=== PATIENT | female | born 1985 | race Caucasian/White ===

== ENCOUNTER 2016-06-14 07:33 | Emergency (ER) | payer BC ==
[~2016-06-14] VITALS: Ht 160 cm; Wt 79.2 kg
[~2016-06-14 07:33] MED LIST: CLON2TAB3 PO; LISD50CA4 PO; LXP/10 PO
[2016-06-14 07:36] VITALS: TEMP 36.5; Ht 160 cm; Wt 79.2 kg
[2016-06-14] MEDS ORDERED: CLON0.2T PO (07:49)
[2016-06-14] MEDS ORDERED: LISD40CA PO (07:49)
[2016-06-14] MEDS ORDERED: ESCI1TAB10 PO (07:49)
[2016-06-14] MEDS ORDERED: SODIUM CHLORIDE 0.9% 1000ML 1,000 ML IV STA (08:02)
[2016-06-14] MEDS ORDERED: LORAZEPAM INJ 0.5 MG in SYRINGE 0.25 ML IV STA (08:02)
[2016-06-14] MEDS ORDERED: LORAZEPAM 0.5 MG TAB SL STA (08:12)
[2016-06-14 08:35] LABS: BASO % 0.2 %; BASO ABS # 0.01 K/uL (0-0.2); COMPLETE YES; HEMATOCRIT 40.8 % (37-47); IG% 0.2 %; LYMPH % 43.5 %; MEAN CELL VOLUME 86.6 fL (80-100); MEAN CORPUSCULAR HEMOGLOBIN 31.2 pg (25-34); MEAN PLATELET VOLUME 10.1 fL (7.4-10.4); MONO % 6.4 %; NEUT % 48.7 %; PLATELET COUNT 243 K/uL (130-400); RED BLOOD COUNT 4.71 M/uL (4.2-5.4); WHITE BLOOD COUNT 5.75 K/uL (4.8-10.8)
[2016-06-14 08:52] LABS: URINE APPEARANCE CLEAR (CLEAR); URINE BILIRUBIN NEG (NEG); URINE COLOR YELLOW; URINE NITRITE NEG (NEG); URINE SPECIFIC GRAVITY 1.023 (1.000-1.030); UROBILINOGEN NEG (NEG); ZZUR CULT IF INDIC CLEAN CATCH NO
[2016-06-14 08:52] LABS: ALT/SGPT 28 U/L (12-78); BLOOD UREA NITROGEN 12 mg/dl (7-18); BUN/CREATININE RATIO 14.1 (10-20); CALCIUM 9.2 mg/dl (8.5-10.1); CARBON DIOXIDE 16 mmol/L (21-32); CHLORIDE 110 mmol/L (98-107); CREATININE 0.82 mg/dl (0.60-1.20); GLUCOSE 89 mg/dl (70-99); MAGNESIUM 1.9 mg/dl (1.8-2.4); POTASSIUM 3.3 mmol/L (3.5-5.1); SODIUM 144 mmol/L (136-145)
[2016-06-14 08:54] LABS: ACETAMINOPHEN < 2 ug/ml (10-30)
[2016-06-14 09:02] LABS: ALB/GLOB RATIO 1.1 (0.9-2); ALKALINE PHOSPHATASE 55 U/L (45-117); AST/SGOT 17 U/L (15-37)
[2016-06-14 09:02] LABS: MANUAL MICROSCOPIC REQUIRED? NO; REVIEW REQ? NO
[2016-06-14 09:28] LABS: BENZODIAZEPINE, URINE POS (NEG); COCAINE,URINE NEG (NEG); PHENCYCLIDINE, URINE NEG (NEG)
[2016-06-14 11:15] VITALS: BP 130/93; PULSE 102; O2SAT 97
--- NOTE | 2016-06-14 11:41 | EMERGENCY ROOM VISIT NOTE ---
History First contact with patient: 07:52 Chief Complaint: ANXIETY Stated Complaint: ANXIETY, CHEST PAIN History of Present Illness The patient is a 30 year old female who presents to the Emergency Department by private vehicle for evaluation of her anxiety. She reports that she hasn't slept in the past 3 days. She is working several jobs and effort to make money as she is currently a doctorate student at [employer]. She had been stressing herself at home as well. She has a known history of anxiety as well as borderline personality disorder. She takes Lexapro daily as well as Klonopin. 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 She was instructed to complete a form by 8 AM today. She was unsuccessful in doing so. She reports that this is worsened her anxiety. She has had anxiety attacks in the past. She reports that this feels very similar. She complains of numbness in the hands and feet as well as shortness of breath and tightness in her chest. The patient rates her current discomfort as a 0/10. She denies any headaches, dizziness, palpitations, nausea , vomiting, or abdominal pain. She reports no history of cardiovascular disease or family history otherwise. Review of Systems A complete 10-point Review of Systems was discussed with the patient, with pertinent positives and negatives listed in the History of Present Illness. All remaining Review of Systems questions can be considered negative unless otherwise specified. Past Medical/Surgical History Medical Problems: (1) Alcohol intoxication (2) Anxiety (3) PTSD (post-traumatic stress disorder) (4) Severe depression Family History Diabetes mellitus Gallbladder disease Heart disease Hypertension Seizures Social History Smoking Status: Never Smoker Smokeless Tobacco Use: No Alcohol Use: occasionally Drug Use: other Marital Status: Housing Status: lives with family Occupation Status: [employer] student Current/Historical Medications Scheduled Clonazepam (Klonopin), 1 MG PO TID Clonidine Hcl (Catapres), 0.2 MG PO HS Escitalopram Oxalate (Lexapro), 20 MG PO DAILY Levonorgestrel (Iud) (Mirena), 20 MCG INT UTER UD Lisdexamfetamine Dimesylate (Vyvanse), 40 MG PO DAILY Allergies Coded Allergies: Latex (Verified Allergy, Intermediate, ERRYTHEMA, 06/14/16) Sulfa Drugs (Verified Allergy, Mild, 06/14/16) Sulfamethoxazole (Verified Allergy, Mild, 06/14/16) Trimethoprim (Verified Allergy, Mild, 06/14/16) Banana (Unverified Allergy, Unknown, unkn, 06/14/16) [place] (Unverified Allergy, Unknown, unknown, 06/14/16) Eggplant (Unverified Allergy, Unknown, hives, 06/14/16) Kiwi (Unverified Allergy, Unknown, hives, 06/14/16) Lentils (Verified Allergy, Unknown, UNKNOWN, 06/14/16) Tuna (Verified Allergy, Unknown, UNKNOWN, 06/14/16) Uncoded Allergies: MELONS (Allergy, Unknown, UNKNOWN, 10/11/13) PEAS (Allergy, Unknown, UNKNOWN, 10/11/13) Physical Exam Vital Signs Date Time Temp Pulse Resp B/P Pulse Ox O2 Delivery O2 Flow Rate FiO2 06/14/16 11:15 102 17 130/93 97 Room Air 06/14/16 08:34 117 06/14/16 07:36 36.5 100 18 139/93 100 Room Air Pain Rating (0-10): 0 Physical Exam VITAL SIGNS - Vital signs and nursing notes were reviewed. GENERAL - 30-year-old female appearing her stated age who is in mild distress and hyperventilating. HEAD - NC/AT. EYES - PERRL with EOMI bilaterally. Sclera anicteric. Palpebral conjunctiva pink and moist with no injection. EARS - No deformities of external structures noted on gross examination bilaterally. No pain elicited with palpation of the tragus bilaterally. External auditory canals without discharge or otorrhea. Tympanic membranes pearly borrego without retraction or bulging. NOSE - Midline and without cyanosis. No epistaxis or purulent drainage noted. Septum midline without deviation or septal hematoma noted. MOUTH/OROPHARYNX - Without perioral cyanosis. Buccal mucosa pink and moist and without leukoplakia. Tongue midline with equal elevation of palate bilaterally. NECK - Neck with FROM. Supple to palpation. No lymphadenopathy noted. LUNGS - Chest wall symmetric without accessory muscle use, intercostals retractions, or central cyanosis. Normal vesicular breath sounds CTA B/L. No wheezes, rales, or rhonchi appreciated. CARDIAC - RRR with S1/S2. No murmur, rubs, or gallops appreciated. ABDOMEN - Abdominal contour obese and without pulsations or visible masses. BS normoactive all four quadrants. No tenderness, palpable masses, hepatosplenomegaly, or ascites noted. EXTREMITIES - +5/5 strength noted in UE/LE bilaterally. PSYCHIATRIC - SPEECH - Rate and volume of speech appropriate. PSYCHOMOTOR - No noticeable psychomotor retardation or agitation. MOOD - Labile. AFFECT -flattened affect. THOUGHT CONTENT - no active or passive suicidal ideation. No thoughts of homicidal ideation. No auditory/visual hallucinations, paranoia, delusions, or obsessions noted. THOUGHT PROCESS - Thought process is relatively linear given the pt's recent emotional hardships. INSIGHT - Fair. JUDGEMENT - Fair. IMPULSE CONTROL - Fair. Medical Decision & Procedures Laboratory Results 06/14/16 08:20 Red Blood Count 4.71, Mean Corpuscular Volume 86.6, Mean Corpuscular Hemoglobin 31.2, Mean Corpuscular Hemoglobin Concent 36.0, Mean Platelet Volume 10.1, Neutrophils (%) (Auto) 48.7, Lymphocytes (%) (Auto) 43.5, Monocytes (%) (Auto) 6.4, Eosinophils (%) (Auto) 1.0, Basophils (%) (Auto) 0.2, Neutrophils # (Auto) 2.80, Lymphocytes # (Auto) 2.50, Monocytes # (Auto) 0.37, Eosinophils # (Auto) 0.06, Basophils # (Auto) 0.01 06/14/16 08:20 Test 06/14/16 08:20 06/14/16 08:30 White Blood Count 5.75 K/uL (4.8-10.8) Red Blood Count 4.71 M/uL (4.2-5.4) Hemoglobin 14.7 g/dL (12.0-16.0) Hematocrit 40.8 % (37-47) Mean Corpuscular Volume 86.6 fL (80-100) Mean Corpuscular Hemoglobin 31.2 pg (25-34) Mean Corpuscular Hemoglobin Concent 36.0 g/dl (32-36) Platelet Count 243 K/uL (130-400) Mean Platelet Volume 10.1 fL (7.4-10.4) Neutrophils (%) (Auto) 48.7 % Lymphocytes (%) (Auto) 43.5 % Monocytes (%) (Auto) 6.4 % Eosinophils (%) (Auto) 1.0 % Basophils (%) (Auto) 0.2 % Neutrophils # (Auto) 2.80 K/uL (1.4-6.5) Lymphocytes # (Auto) 2.50 K/uL (1.2-3.4) Monocytes # (Auto) 0.37 K/uL (0.11-0.59) Eosinophils # (Auto) 0.06 K/uL (0-0.5) Basophils # (Auto) 0.01 K/uL (0-0.2) RDW Standard Deviation 39.1 fL (36.4-46.3) RDW Coefficient of Variation 12.4 % (11.5-14.5) Immature Granulocyte % (Auto) 0.2 % Immature Granulocyte # (Auto) 0.01 K/uL (0.00-0.02) Anion Gap 18.0 mmol/L (3-11) Est Creatinine Clear Calc Drug Dose 99.0 ml/min Estimated GFR () 110.5 Estimated GFR (Non- 95.4 BUN/Creatinine Ratio 14.1 (10-20) Calcium Level 9.2 mg/dl (8.5-10.1) Magnesium Level 1.9 mg/dl (1.8-2.4) Total Bilirubin 0.2 mg/dl (0.2-1) Aspartate Amino Transf (AST/SGOT) 17 U/L (15-37) Alanine Aminotransferase (ALT/SGPT) 28 U/L (12-78) Alkaline Phosphatase 55 U/L (45-117) Total Creatine Kinase 73 U/L (26-192) Creatine Kinase MB < 0.5 ng/ml (0.5-3.6) Creatine Kinase MB Ratio (0-3.0) Troponin I < 0.015 ng/ml (0-0.045) Total Protein 7.4 gm/dl (6.4-8.2) Albumin 3.9 gm/dl (3.4-5.0) Globulin 3.5 gm/dl (2.5-4.0) Albumin/Globulin Ratio 1.1 (0.9-2) Thyroid Stimulating Hormone (TSH) 2.210 uIu/ml (0.300-4.500) Salicylates Level 5.6 mg/dl (2.8-20) Acetaminophen Level < 2 ug/ml (10-30) Ethyl Alcohol mg/dL 24.0 mg/dl (0-3) Urine Color YELLOW Urine Appearance CLEAR (CLEAR) Urine pH 7.0 (4.5-7.5) Urine Specific [place] 1.023 (1.000-1.030) Urine Protein NEG (NEG) Urine Glucose (UA) NEG (NEG) Urine Ketones 1+ (NEG) Urine Occult Blood NEG (NEG) Urine Nitrite NEG (NEG) Urine Bilirubin NEG (NEG) Urine Urobilinogen NEG (NEG) Urine Leukocyte Esterase NEG (NEG) Urine Test NEG (NEG) Urine Opiates Screen NEG (NEG) Urine Methadone, Qualitative NEG (NEG) Urine Barbiturates NEG (NEG) Urine Phencyclidine (PCP) Level NEG (NEG) Urine Amphetamines Confirmation [id number] NG/ML (WVTUW=100) Ur Amphetamine/Methamphetamine POS (NEG) Urine Methamphetamine Confirmation NEGATIVE NG/ML (CSUGKX=069) MDMA (Ecstasy) Screen NEG (NEG) Urine Hydroxyalprazolam Confirm NEGATIVE NG/ML (CUTOFF=25) Urine Benzodiazepines Screen POS (NEG) 7-Amino Clonazepam Level >2000 NG/ML (CUTOFF=25) Urine Nordiazepam Confirmation NEGATIVE NG/ML (CUTOFF=50) Urine Hydroxyethylflurazepam Level NEGATIVE NG/ML (CUTOFF=50) Urine Lorazepam (GC/MS) NEGATIVE NG/ML (CUTOFF=50) Urine Oxazepam Confirm (GC/MS) NEGATIVE NG/ML (CUTOFF=50) Urine Temazepam Confirmation NEGATIVE NG/ML (CUTOFF=50) Urine Hydroxytriazolam Confirmation NEGATIVE NG/ML (CUTOFF=50) Urine Hydroxymidazolam Confirmation NEGATIVE NG/ML (CUTOFF=50) Urine Cocaine Metabolite NEG (NEG) Urine Marijuana (THC) NEG (NEG) Medications Administered Medications (Trade) Dose Ordered Sig/Susan Route Start Time Stop Time Status Last Admin Dose Admin Lorazepam (Ativan Tab) 0.5 mg NOW STAT SL 06/14/16 08:12 06/14/16 08:14 DC 06/14/16 08:17 0.5 MG Procedure Patient was placed on the strategic planning director and monitored throughout the entire extent of their stay. In addition, the patient's pulse oximetry was monitored throughout the entire stay. Any abnormalities or aberrancies were addressed appropriately. ECG Indication: chest pain, SOB/dyspnea Rate (beats per minute): 120 Rhythm: sinus tachycardia Findings: nonspecific-ST abn (Inferior - when compared to 07/07/2015.) ED Course Patient was seen and evaluated by myself. Previous emergency department visit notes were reviewed. Patient declines IV. Labs were collected. Patient was treated with 0.5 mg sublingual Ativan. EKG as above. Laboratory results demonstrate no acute leukocytosis, worrisome anemia, or bandemia. The patient has no significant electrolyte abnormalities. Cardiac enzymes are negative. Troponin is negative. [facility] did evaluate the patient and agrees with close outpatient management. She does have an appointment on Tuesday with her psychiatrist. She will keep this appointment. The patient will follow-up with her primary care provider or return in the setting of any changing or worsening symptoms. Patient discharged home in good condition. Medical Decision Given the patient's presentation and stated complaints, I did elect to perform the above-mentioned workup. The patient presents today with complaints of anxiety reaction chest pain. The patient has not slept well the past 3 days. It sounds as though she has been abusing her Adderall and taken inappropriately. In addition, she initially declines alcohol use, but her labs demonstrate otherwise. Patient has no focal neurological deficit. Her cardiac evaluation is otherwise unremarkable. She responded well to the subungual Ativan. She did speak with mental health delegate. The patient is not suicidal or homicidal. I question if the patient may be using her anxiety has excuse as she has deadlines to meet and did not have symptoms until a deadline was placed on her in the last 24 hours. Regardless, I do not feel the patient is a threat to herself or others. She will keep her scheduled outpatient psych follow-up as scheduled on Tuesday. She will return for any changing or worsening symptoms. Patient discharged home in good condition. In the evaluation and treatment of this patient, the following differential diagnoses were considered: [place], ASC, Dysrhythmia, Angina, Mediastinitis, GERD, Esophagitis, PE, Pneumonia, Bronchitis, Costochondritis, Rib Fracture, Zoster, Hypoglycemia, Barbiturate Toxicity, Benzodiazepine Toxicity, Depression and Suicidality, Diabetic Ketoacidosis, Encephalitis, Ethylene Glycol Toxicity, Meningitis, Metabolic Acidosis, Opioid Toxicity, CVA, TIA, Intracranial Abnormality, Acute Psychosis, Amongst Others. Impression Primary Impression: Anxiety reaction Departure Information Dispostion Home / Self-Care Condition GOOD Referrals Macy Villar M.D. (PCP) Patient Instructions My [facility] Additional Instructions Follow-up with your therapist on Tuesday as scheduled. Return for any changing or worsening symptoms.
[2016-06-14] MEDS ORDERED: CLON1TAB3 PO (18:41)
[2016-06-14] MEDS ORDERED: LEVOIUD INT UTER (20:57)
[2016-06-16 12:05] LABS: HYDROXYETHYLFLURAZEPAM CONF NEGATIVE NG/ML (CUTOFF=50); HYDROXYMIDAZOLAM NEGATIVE NG/ML (CUTOFF=50); HYDROXYTRIAZOLAM CONF NEGATIVE NG/ML (CUTOFF=50); TEMAZEPAM CONF NEGATIVE NG/ML (CUTOFF=50)
== END 2016-06-14 11:43 | disposition home or self-care (01) ==
LOC: C.EDB 07:35 → C.EDA 11:43
DX: F41.9 Anxiety disorder, unspecified (principal); F60.3 Borderline personality disorder; F43.10 Post-traumatic stress disorder, unspecified; Z88.2 Allergy status to sulfonamides; Z91.040 Latex allergy status; Z91.018 Allergy to other foods; Z83.3 Family history of diabetes mellitus; Z82.49 Family history of ischemic heart disease and other diseases of the circulatory system

== ENCOUNTER 2016-11-14 19:40 | Emergency (ER) | payer BC ==
[~2016-11-14] VITALS: Ht 160 cm; Wt 81.2 kg
[~2016-11-14 19:40] MED LIST changes: +CLON0.2T PO; +CLON1TAB3 PO; -CLON2TAB3 PO; +ESCI1TAB10 PO; +LEVOIUD INT UTER; +LISD40CA PO; -LISD50CA4 PO; -LXP/10 PO
[2016-11-14 19:43] VITALS: TEMP 36.7; Ht 160 cm; Wt 81.2 kg
[2016-11-14] MEDS ORDERED: PROCHLORPERAZINE 5 MG/ML 2 ML VIAL IV STA (20:01)
[2016-11-14] MEDS ORDERED: SODIUM CHLORIDE 0.9% 1000ML 1,000 ML IV STA (20:01)
[2016-11-14] MEDS ORDERED: KETOROLAC TROMETHAMINE 30 MG/ML VIAL IV STA (20:01)
[2016-11-14] MEDS ORDERED: DiphenhydrAMINE HCL 50 MG/ML VIAL IV STA (20:01)
[2016-11-14] MEDS ORDERED: TOPI25TA99 PO (20:06)
--- NOTE | 2016-11-14 20:06 | EMERGENCY ROOM VISIT NOTE ---
History Report prepared by yCndi: Gemam Abdul Under the Supervision of: Dr. Rosalio Dowell M.D. First contact with patient: 19:47 Chief Complaint: HEADACHE Stated Complaint: SEVERE HEADACHE A NAUSEA History of Present Illness The patient is a 31 year old female who presents to the Emergency Room with complaints of a worsening headache for the past 4 days. She has a history of migraine headaches, but she describes this current headache as "the worst pain I have ever had in my entire life." Her pain is located on the left side of her head, above her eye. The patient describes her pain as sharp and stabbing. She rates her current pain as an 8/10 in severity. She notes photophobia and nausea. She has tried her typical medications for migraine headaches without any relief of her symptoms. The patient was started on Topamax two days ago. She was also recently weaned off of Valium. She has not taken any Valium in the past two weeks. The patient denies any trauma or injury to her head. She also denies any neck pain, back pain, or extremity pain. She does not follow-up with a neurologist for her migraines. Source of History: patient Onset: 4 days ago Position: head Symptom Intensity: 8/10 Quality: sharp, stabbing Timing: worsening Modifying Factors (Worsening): other (light) Associated Symptoms: + nausea, No neck pain, No back pain Review of Systems See HPI for pertinent positives & negatives. A total of 10 systems reviewed and were otherwise negative. Past Medical & Surgical Medical Problems: (1) Alcohol intoxication (2) Anxiety (3) PTSD (post-traumatic stress disorder) (4) Severe depression Family History Diabetes mellitus Gallbladder disease Heart disease Hypertension Seizures Social History Smoking Status: Never Smoker Alcohol Use: occasionally Drug Use: other Marital Status: Housing Status: lives with family Occupation Status: employed Current/Historical Medications Scheduled Escitalopram Oxalate (Lexapro), 20 MG PO DAILY Levonorgestrel (Iud) (Mirena), 20 MCG INT UTER UD Topiramate (Topamax ), 25 MG PO QAM Scheduled PRN Naproxen Sodium-Diphenhydramin (Aleve Pm 220-25 mg), 1 TAB PO Q12 PRN for Pain Sumatriptan Succinate (Imitrex Nasal [place]), 1 SPRAY NA DAILY PRN for Headache Allergies Coded Allergies: Latex (Verified Allergy, Intermediate, ERRYTHEMA, 11/14/16) Sulfa Drugs (Verified Allergy, Mild, 11/14/16) Sulfamethoxazole (Verified Allergy, Mild, 11/14/16) Trimethoprim (Verified Allergy, Mild, 11/14/16) Banana (Unverified Allergy, Unknown, unkn, 11/14/16) [place] (Unverified Allergy, Unknown, unknown, 11/14/16) Eggplant (Unverified Allergy, Unknown, hives, 11/14/16) Kiwi (Unverified Allergy, Unknown, hives, 11/14/16) Lentils (Verified Allergy, Unknown, UNKNOWN, 11/14/16) Tuna (Verified Allergy, Unknown, UNKNOWN, 11/14/16) Uncoded Allergies: MELONS (Allergy, Unknown, UNKNOWN, 10/11/13) PEAS (Allergy, Unknown, UNKNOWN, 10/11/13) Physical Exam Vital Signs Date Time Temp Pulse Resp B/P (MAP) Pulse Ox O2 Delivery O2 Flow Rate FiO2 11/14/16 21:06 62 18 143/96 99 Room Air 11/14/16 19:43 36.7 110 18 163/112 95 Room Air Physical Exam GENERAL: Patient is a healthy-appearing well-nourished female. HEAD: Normocephalic atraumatic EYES: Ocular movements intact pupils equal and react to light OROPHARYNX mucous membranes are moist no exudates present no erythema or edema present NECK: Supple no nuchal rigidity CHEST: Good equal expansion LUNGS: Clear and equal to auscultation CARDIAC: Normal S1 and S2 ABDOMEN: Soft nontender no guarding BACK: No CVA tenderness EXTREMITIES: No pain upon palpation normal muscle strength in all groups no clubbing cyanosis or edema NEURO: Patient is following commands and answering questions appropriately. Alert and oriented x3 Cranial Nerves 2-12 grossly intact Medical Decision & Procedures ER Provider Diagnostic Interpretation: Radiology results as stated below per my review and radiologist interpretation: HEAD CT NONCONTRAST CT DOSE: 601.98 mGy.cm HISTORY: Mental status change Pt c/o AMS TECHNIQUE: Multiaxial CT images of the head were performed without the use of intravenous contrast. Comparison: 08/15/2014 Findings: The paranasal sinuses and mastoid air cells are clear. The calvarium and skull base are intact. The ventricles and sulci are within normal limits. There is no mass, hematoma, midline shift, or acute infarct. Impression: No acute intracranial abnormality. Electronically signed by: Osvaldo Santana M.D. 11/14/2016 8:44 PM Dictated Date/Time: 11/14/2016 8:44 PM Laboratory Results 11/14/16 20:00 Red Blood Count 4.73, Mean Corpuscular Volume 90.7, Mean Corpuscular Hemoglobin 30.7, Mean Corpuscular Hemoglobin Concent 33.8, Mean Platelet Volume 9.9, Neutrophils (%) (Auto) 69.9, Lymphocytes (%) (Auto) 19.9, Monocytes (%) (Auto) 6.5, Eosinophils (%) (Auto) 3.5, Basophils (%) (Auto) 0.1, Neutrophils # (Auto) 4.73, Lymphocytes # (Auto) 1.35, Monocytes # (Auto) 0.44, Eosinophils # (Auto) 0.24, Basophils # (Auto) 0.01 11/14/16 20:00 Test 11/14/16 20:00 White Blood Count 6.78 K/uL (4.8-10.8) Red Blood Count 4.73 M/uL (4.2-5.4) Hemoglobin 14.5 g/dL (12.0-16.0) Hematocrit 42.9 % (37-47) Mean Corpuscular Volume 90.7 fL (80-100) Mean Corpuscular Hemoglobin 30.7 pg (25-34) Mean Corpuscular Hemoglobin Concent 33.8 g/dl (32-36) Platelet Count 254 K/uL (130-400) Mean Platelet Volume 9.9 fL (7.4-10.4) Neutrophils (%) (Auto) 69.9 % Lymphocytes (%) (Auto) 19.9 % Monocytes (%) (Auto) 6.5 % Eosinophils (%) (Auto) 3.5 % Basophils (%) (Auto) 0.1 % Neutrophils # (Auto) 4.73 K/uL (1.4-6.5) Lymphocytes # (Auto) 1.35 K/uL (1.2-3.4) Monocytes # (Auto) 0.44 K/uL (0.11-0.59) Eosinophils # (Auto) 0.24 K/uL (0-0.5) Basophils # (Auto) 0.01 K/uL (0-0.2) RDW Standard Deviation 40.7 fL (36.4-46.3) RDW Coefficient of Variation 12.1 % (11.5-14.5) Immature Granulocyte % (Auto) 0.1 % Immature Granulocyte # (Auto) 0.01 K/uL (0.00-0.02) Anion Gap 8.0 mmol/L (3-11) Est Creatinine Clear Calc Drug Dose 89.5 ml/min Estimated GFR () 96.8 Estimated GFR (Non- 83.5 BUN/Creatinine Ratio 11.0 (10-20) Calcium Level 9.3 mg/dl (8.5-10.1) Total Bilirubin 0.5 mg/dl (0.2-1) Direct Bilirubin < 0.1 mg/dl (0-0.2) Aspartate Amino Transf (AST/SGOT) 16 U/L (15-37) Alanine Aminotransferase (ALT/SGPT) 34 U/L (12-78) Alkaline Phosphatase 55 U/L (45-117) Total Protein 7.4 gm/dl (6.4-8.2) Albumin 4.4 gm/dl (3.4-5.0) Lipase 148 U/L (73-393) Labs reviewed by ED physician. Medications Administered Medications (Trade) Dose Ordered Sig/Susan Route Start Time Stop Time Status Last Admin Dose Admin Ketorolac Tromethamine (Toradol Inj) 30 mg NOW STAT IV 11/14/16 20:01 11/14/16 20:03 DC 11/14/16 20:18 30 MG Prochlorperazine Edisylate (Compazine Inj) 10 mg NOW STAT IV 11/14/16 20:01 11/14/16 20:03 DC 11/14/16 20:18 10 MG Diphenhydramine HCl (Benadryl Inj) 50 mg NOW STAT IV 11/14/16 20:01 11/14/16 20:03 DC 11/14/16 20:18 50 MG Dexamethasone Sodium Phosphate (Decadron Inj) 10 mg NOW ONCE IV 11/14/16 20:15 11/14/16 20:16 DC 11/14/16 20:19 10 MG Sodium Chloride 1,000 ml @ 999 mls/hr Q1H1M STAT IV 11/14/16 20:01 11/14/16 21:01 DC 11/14/16 20:19 999 MLS/HR ED Course 1946: Past medical records reviewed. The patient was evaluated in room A11B. A complete history and physical examination was performed. 2001: NSS 1000 ml @ 999 mls/hr IV, Benadryl 50 mg IV, Compazine 10 mg IV, Toradol 30 mg IV 2015: Decadron 10 mg IV 2058: I reassessed the patient at this time. She is feeling better and resting comfortably. I discussed the results and treatment plan with the patient. I answered all pertaining questions that she had. She expressed understanding and verbalized agreement. The patient will be discharged home. Medical Decision Differential diagnosis: Etiologies such as migraine headache, meningitis, sinusitis, CO exposure, ICH, SAH, infection, tumor, headache, sinus thrombosis, arterial dissection, as well as others were entertained. Medication Reconciliation: I attest that I have personally reviewed the patient' s current medication list. Blood Pressure Screening: Patient was found to have an elevated blood pressure and was referred to their primary care doctor for recheck and further treatment. This is a 31-year-old female who presents emergency department complaining of severe headache. The patient reports she has never had imaging of her head performed before therefore she was sent for CAT scan of the head she has no evidence of meningitis or encephalitis on examination. She also has a normal CBC normal renal profile normal liver profile. An IV was established, the patient was given Toradol, Compazine, Benadryl, Decadron. Repeat examination revealed improvement the patient's symptoms. I do believe that the patient as well as to be discharged home for follow-up with primary care physician. Patient was in agreement with the treatment plan. Impression Primary Impression: Headache Scribe Attestation The scribe's documentation has been prepared under my direction and personally reviewed by me in its entirety. I confirm that the note above accurately reflects all work, treatment, procedures, and medical decision making performed by me. Departure Information Dispostion Home / Self-Care Referrals Macy Villar M.D. (PCP) Courtney Jain M.D. Forms HOME CARE DOCUMENTATION FORM, IMPORTANT VISIT INFORMATION Patient Instructions ED Headache Migraine, Hypertension Dc, My [facility] Additional Instructions You were found to have an elevated blood pressure today (>120 sytolic or >90 diastolic). Per medicare guidelines, you need to follow up with this blood pressure screening with your Primary Care Physician (PCP). For a new PCP call [phone]. Follow up with DR Jain's office You have been examined and treated today on an emergency basis only. This is not a substitute for, or an effort to provide, complete comprehensive medical care. It is impossible to recognize and treat all injuries or illnesses in a single emergency department visit. It is therefore important that you follow up closely with Dr Villar. Call as soon as possible for an appointment. Thank you for your time and consideration. I look forward to speaking with you again soon. Please don't hesitate to call us if you have any questions. Problem Qualifiers Primary Impression: Headache Headache type: unspecified Headache chronicity pattern: unspecified pattern Intractability: not intractable Qualified Codes: R51 - Headache
[2016-11-14] MEDS ORDERED: IMTIN5 (20:08)
[2016-11-14] MEDS ORDERED: DIPH25CA65 PO (20:12)
[2016-11-14] MEDS ORDERED: NAPR-1169 PO (20:12)
[2016-11-14] MEDS ORDERED: NAPR-998 PO (20:12)
[2016-11-14] MEDS ORDERED: DEXAMETHASONE SOD INJ 10 MG/ML VIAL IV ONE (20:15)
[2016-11-14 20:20] LABS: BASO % 0.1 %; BASO ABS # 0.01 K/uL (0-0.2); COMPLETE YES; EOS % 3.5 %; HEMATOCRIT 42.9 % (37-47); IG% 0.1 %; LYMPH % 19.9 %; LYMPH ABS # 1.35 K/uL (1.2-3.4); MEAN CELL VOLUME 90.7 fL (80-100); MEAN CORPUSCULAR HEMOGLOBIN 30.7 pg (25-34); MEAN CORPUSCULAR HGB CONC 33.8 g/dl (32-36); MEAN PLATELET VOLUME 9.9 fL (7.4-10.4); MONO % 6.5 %; NEUT % 69.9 %; PLATELET COUNT 254 K/uL (130-400); RED BLOOD COUNT 4.73 M/uL (4.2-5.4); WHITE BLOOD COUNT 6.78 K/uL (4.8-10.8)
[2016-11-14 20:39] LABS: ALT/SGPT 34 U/L (12-78); BLOOD UREA NITROGEN 10 mg/dl (7-18); CALCIUM 9.3 mg/dl (8.5-10.1); CARBON DIOXIDE 26 mmol/L (21-32); CHLORIDE 108 mmol/L (98-107); CREATININE 0.91 mg/dl (0.60-1.20); GLUCOSE 86 mg/dl (70-99); POTASSIUM 3.7 mmol/L (3.5-5.1); SODIUM 142 mmol/L (136-145)
[2016-11-14 20:42] LABS: ALKALINE PHOSPHATASE 55 U/L (45-117); AST/SGOT 16 U/L (15-37)
--- NOTE | 2016-11-14 20:46 | DIAGNOSTIC IMAGING REPORT ---
HEAD CT NONCONTRAST CT DOSE: 601.98 mGy.cm HISTORY: Mental status change Pt c/o AMS TECHNIQUE: Multiaxial CT images of the head were performed without the use of intravenous contrast. Comparison: 08/15/2014 Findings: The paranasal sinuses and mastoid air cells are clear. The calvarium and skull base are intact. The ventricles and sulci are within normal limits. There is no mass, hematoma, midline shift, or acute infarct. Impression: No acute intracranial abnormality. Electronically signed by: Osvaldo Santana M.D. 11/14/2016 8:44 PM Dictated Date/Time: 11/14/2016 8:44 PM
[2016-11-14 21:06] VITALS: BP 143/96; PULSE 62; O2SAT 99
== END 2016-11-14 21:18 | disposition home or self-care (01) ==
LOC: C.EDB 19:41 → C.EDA 21:18
DX: R51 Headache (principal); R41.82 Altered mental status, unspecified; F41.8 Other specified anxiety disorders; F43.10 Post-traumatic stress disorder, unspecified; Z83.3 Family history of diabetes mellitus; Z82.49 Family history of ischemic heart disease and other diseases of the circulatory system; Z79.899 Other long term (current) drug therapy

== ENCOUNTER 2016-11-27 23:36 | Emergency (ER) | payer BC ==
[~2016-11-27] VITALS: Ht 160 cm; Wt 79.9 kg
[~2016-11-27 23:36] MED LIST changes: -CLON0.2T PO; -CLON1TAB3 PO; +IMTIN5; -LISD40CA PO; +NAPR-998 PO; +TOPI25TA99 PO
[2016-11-27 23:39] VITALS: BP 117/87; PULSE 96; TEMP 36.3; O2SAT 97; Ht 160 cm; Wt 79.9 kg
[2016-11-28] MEDS ORDERED: DIAZEPAM 5MG TAB PO STA (00:05)
--- NOTE | 2016-11-28 00:06 | EMERGENCY ROOM VISIT NOTE ---
History Report prepared by Cyndi: Brandon Zhao Under the Supervision of: Dr. Alex Angeles M.D. First contact with patient: 23:54 Chief Complaint: ANXIETY Stated Complaint: SEVERE INSOMNIA AND ANXIETY History of Present Illness The patient is a 31 year old female who presents to the Emergency Room for a mental health evaluation. She has not slept more than a couple of hours over the last couple of weeks. She is having trouble thinking straight because of this. She stopped taking her Valium three weeks ago because she wanted to stop taking it. She was taking 20 mg of Valium every night, and then stopped "cold turkey." Over these weeks, she has tried taking Ambien, Clonidine, Vistaril, Benadryl, and Unisom. Nothing has helped. She has a history of insomnia and anxiety. She is currently taking Lexapro as well. She sees a psychiatrist regularly, but they are in [place] until December. She denies any suicidal ideation, homicidal ideation, or hallucinations. Source of History: patient Onset: past couple of weeks Position: other (Global) Symptom Intensity: moderate Quality: other (Insomnia) Timing: constant Note: She denies any SI, HI, or hallucinations. Review of Systems See HPI for pertinent positives & negatives. A total of 10 systems reviewed and were otherwise negative. Past Medical & Surgical Medical Problems: (1) Alcohol intoxication (2) Anxiety (3) PTSD (post-traumatic stress disorder) (4) Severe depression Family History Diabetes mellitus Gallbladder disease Heart disease Hypertension Seizures Social History Smoking Status: Never Smoker Alcohol Use: occasionally Drug Use: other Marital Status: Housing Status: lives with family Occupation Status: employed Current/Historical Medications Scheduled Escitalopram Oxalate (Lexapro), 20 MG PO DAILY Levonorgestrel (Iud) (Mirena), 20 MCG INT UTER UD Topiramate (Topamax ), 25 MG PO QAM Scheduled PRN Diazepam (Valium), 0.5-1 TAB PO HS PRN for Insomnia Naproxen Sodium-Diphenhydramin (Aleve Pm 220-25 mg), 1 TAB PO Q12 PRN for Pain Sumatriptan Succinate (Imitrex Nasal [place]), 1 SPRAY NA DAILY PRN for Headache Allergies Coded Allergies: Latex (Verified Allergy, Intermediate, ERRYTHEMA, 11/27/16) Sulfa Drugs (Verified Allergy, Mild, 11/27/16) Sulfamethoxazole (Verified Allergy, Mild, 11/27/16) Trimethoprim (Verified Allergy, Mild, 11/27/16) Banana (Unverified Allergy, Unknown, unkn, 11/27/16) [place] (Unverified Allergy, Unknown, unknown, 11/27/16) Eggplant (Unverified Allergy, Unknown, hives, 11/27/16) Kiwi (Unverified Allergy, Unknown, hives, 11/27/16) Lentils (Verified Allergy, Unknown, UNKNOWN, 11/27/16) Tuna (Verified Allergy, Unknown, UNKNOWN, 11/27/16) Uncoded Allergies: MELONS (Allergy, Unknown, UNKNOWN, 10/11/13) PEAS (Allergy, Unknown, UNKNOWN, 10/11/13) Physical Exam Vital Signs Date Time Temp Pulse Resp B/P (MAP) Pulse Ox O2 Delivery O2 Flow Rate FiO2 11/27/16 23:39 36.3 96 18 117/87 97 Room Air Physical Exam GENERAL: Patient is mildly anxious appearing and in no acute distress. HEENT: No acute trauma, normocephalic atraumatic, mucous membranes moist, no nasal congestion, no scleral icterus. NECK: No stridor, no adenopathy, no meningismus, trachea is midline. LUNGS: No dyspnea. Clear to auscultation and equal bilaterally. No wheeze, no rhonchi. HEART: Regular rate and rhythm. No murmurs, rubs, gallops appreciated. EXTREMITIES: Normal motion all extremities, no cyanosis, no edema. NEUROLOGIC: Alert and oriented, no acute motor or sensory deficits, no focal weakness, cranial nerves grossly intact. SKIN: No rash, no jaundice, no diaphoresis. PSYCH: States severe insomnia. Denies suicidal and homicidal ideations. Denies hallucinations. Medical Decision & Procedures Medications Administered Medications (Trade) Dose Ordered Sig/Susan Route Start Time Stop Time Status Last Admin Dose Admin Diazepam (Valium Tab) 10 mg NOW STAT PO 11/28/16 00:05 11/28/16 00:07 DC 11/28/16 00:19 10 MG ED Course 2354: The patient was evaluated in room A5. A complete history and physical exam was performed. 0005: Ordered Valium Tab 10 mg PO 0020: Reevaluated the patient. Discussed results and discharge instructions: She verbalized understanding and agreement. The patient is ready for discharge. Medical Decision Medication Reconciliation: I attest that I have personally reviewed the patient 's current medication list. Blood pressure screening: Patient was found to have normal blood pressure on screening and does not require follow-up. 31 yr old female with long history of anxiety/insomnia issues who recently stopped valium 3 weeks ago. Unable to sleep and having side effects of sleep deprivation. Multiple medications tried without success. Reviewed at length issues with restarting valium though patient willing to do this to get sleep. She is not suicidal nor does she state depression has worsened, and she makes clear that she does not need inpatient treatment. Her will have control of her medications. Will give very limited rx with instructions that further medications must come from her PCP. Reviewed restrictions of benzos. Aware she can return at any time if worsening or other concerns. Impression Primary Impression: Insomnia Scribe Attestation The scribe's documentation has been prepared under my direction and personally reviewed by me in its entirety. I confirm that the note above accurately reflects all work, treatment, procedures, and medical decision making performed by me. Departure Information Dispostion Home / Self-Care Prescriptions Diazepam (Valium) 10 Mg Tab 0.5-1 TAB PO HS Y for Insomnia for 8 Days, #8 TAB Prov: Alex Angeles M.D. 11/28/16 Referrals Macy Villar M.D. (PCP) Forms HOME CARE DOCUMENTATION FORM, IMPORTANT VISIT INFORMATION Patient Instructions ED Insomnia, My [facility] Additional Instructions You have received a benzodiazepine medication prescription. These medications may cause drowsiness and should not be used with other sedative medications. Do not drive, drink alcohol, perform dangerous activities, nor make important decisions after taking these medications. care home use or inappropriate use may lead to addiction.
[2016-11-28] MEDS ORDERED: DIAZ10TA PO (00:08)
== END 2016-11-28 00:19 | disposition home or self-care (01) ==
LOC: C.EDB 23:38 → C.EDA 11-28 00:19
DX: G47.00 Insomnia, unspecified (principal); F41.9 Anxiety disorder, unspecified; F43.10 Post-traumatic stress disorder, unspecified; F32.9 Major depressive disorder, single episode, unspecified; Z83.3 Family history of diabetes mellitus; Z82.49 Family history of ischemic heart disease and other diseases of the circulatory system; Z82.0 Family history of epilepsy and other diseases of the nervous system; Z79.899 Other long term (current) drug therapy

== ENCOUNTER 2016-12-28 11:28 | Emergency (ER) | payer BC ==
[~2016-12-28] VITALS: Ht 160 cm; Wt 81.0 kg
[2016-12-28 11:34] VITALS: TEMP 36.6; Ht 160 cm; Wt 81.0 kg
[2016-12-28] MEDS ORDERED: CLON0.2T PO (11:57)
[2016-12-28] MEDS ORDERED: LORAZEPAM 0.5 MG TAB SL STA (12:18)
--- NOTE | 2016-12-28 15:17 | EMERGENCY ROOM VISIT NOTE ---
History Report prepared by Cyndi: Jun Cagle Under the Supervision of: Dr. Rosalio Dowell M.D. First contact with patient: 12:07 Chief Complaint: ILLNESS Stated Complaint: NAUSEA, OH, WEAK, DIZZY, CHEST PAINS History of Present Illness The patient is a 31 year old female who presents to the Emergency Room with complaints of a persistent anxiety beginning a week ago. The patient states "I feel like I am going to ". She also complains of nausea, headache, weakness, dizziness, and chest pain. She has been seen in the ED three times within the past two months with similar complaints. The patient states that she stopped taking Valium, and was started on Clonidine about two months ago. She has been given Valium periodically since. Her most recent Valium use was about a week ago. She was on Klonopin prior to the Valium. The patient sees a psychiatrist, but states that his is currently in [place]. She is scheduled to see him in three weeks. She notes that she sees a therapist once a week. The patient denies any suicidal ideation. She has been taking Ativan PRN this past week. Nothing has improved her current symptoms. Source of History: patient Onset: a week ago Quality: other (anxiety) Timing: other (persistent) Modifying Factors (Relieving): other (none) Associated Symptoms: + headache, + chest pain, + nausea Note: The patient also complains of dizziness. Review of Systems See HPI for pertinent positives & negatives. A total of 10 systems reviewed and were otherwise negative. Past Medical & Surgical Medical Problems: (1) Alcohol intoxication (2) Anxiety (3) PTSD (post-traumatic stress disorder) (4) Severe depression Family History Diabetes mellitus Gallbladder disease Heart disease Hypertension Seizures Social History Smoking Status: Never Smoker Alcohol Use: occasionally Drug Use: other Marital Status: Housing Status: lives with family Occupation Status: employed Current/Historical Medications Scheduled Clonidine Hcl (Catapres), 0.2 MG PO TID Escitalopram Oxalate (Lexapro), 30 MG PO DAILY Levonorgestrel (Iud) (Mirena), 20 MCG INT UTER UD Scheduled PRN Naproxen Sodium-Diphenhydramin (Aleve Pm 220-25 mg), 1 TAB PO Q12 PRN for Pain Sumatriptan Succinate (Imitrex Nasal [place]), 1 SPRAY NA DAILY PRN for Headache Allergies Coded Allergies: Latex (Verified Allergy, Intermediate, ERRYTHEMA, 12/28/16) Sulfa Drugs (Verified Allergy, Mild, 12/28/16) Sulfamethoxazole (Verified Allergy, Mild, 12/28/16) Trimethoprim (Verified Allergy, Mild, 12/28/16) Banana (Unverified Allergy, Unknown, unkn, 12/28/16) [place] (Unverified Allergy, Unknown, unknown, 12/28/16) Eggplant (Unverified Allergy, Unknown, hives, 12/28/16) Kiwi (Unverified Allergy, Unknown, hives, 12/28/16) Lentils (Verified Allergy, Unknown, UNKNOWN, 12/28/16) Tuna (Verified Allergy, Unknown, UNKNOWN, 12/28/16) Uncoded Allergies: MELONS (Allergy, Unknown, UNKNOWN, 10/11/13) PEAS (Allergy, Unknown, UNKNOWN, 10/11/13) Physical Exam Vital Signs Date Time Temp Pulse Resp B/P (MAP) Pulse Ox O2 Delivery O2 Flow Rate FiO2 12/28/16 15:27 108 18 143/93 98 Room Air 12/28/16 14:53 72 16 147/89 12/28/16 13:47 88 16 130/92 98 Room Air 12/28/16 11:34 36.6 104 20 138/88 98 Room Air Physical Exam GENERAL: Patient is a healthy-appearing well-nourished female pacing around the room. HEAD: Normocephalic atraumatic EYES: Ocular movements intact pupils equal and react to light OROPHARYNX mucous membranes are moist no exudates present no erythema or edema present NECK: Supple no nuchal rigidity CHEST: Good equal expansion LUNGS: Clear and equal to auscultation CARDIAC: Normal S1 and S2 ABDOMEN: Soft nontender no guarding BACK: No CVA tenderness EXTREMITIES: No pain upon palpation normal muscle strength in all groups no clubbing cyanosis or edema. Old wounds to forearms. No recent wounds. NEURO: Patient is following commands and answering questions appropriately. Alert and oriented x3 Cranial Nerves 2-12 grossly intact PSYCH: Denies suicidal or homicidal ideation. Medical Decision & Procedures Medications Administered Medications (Trade) Dose Ordered Sig/Susan Route Start Time Stop Time Status Last Admin Dose Admin Lorazepam (Ativan Tab) 0.5 mg NOW STAT SL 12/28/16 12:18 12/28/16 12:19 DC 12/28/16 12:22 0.5 MG ED Course 1212: Past medical records reviewed. The patient was evaluated in room C1. A complete history and physical examination was performed. 1218: Ordered Ativan Tab 0.5 mg SL. 1335: I spoke with the director of casework regarding the patient's case. She recommends rehab. 1340: The patient spoke with [facility], and is waiting to hear about acceptance. 1455: Upon reexamination the patient is resting comfortably. She has been accepted at [facility]. I discussed results and treatment plan with the patient. She verbalizes agreement and understanding. The patient is ready for discharge. Medical Decision Differential diagnosis: Etiologies such as mood disorder, infection, hypoglycemia, electrolyte abnormalities, cardiac sources, intracerebral event, toxicologic, neurologic, as well as others were entertained. This is a 31-year-old female who presents emergency department requesting Valium. I'm uncomfortable with prescribing this patient Valium as she has been here multiple times and does not seem to have a primary care physician that is willing to prescribe the patient Valium. In addition I'm concerned that the patient has been masking her withdrawal behavior with alcohol. Based on this I will give the patient a one-time dose of Ativan here in the emergency department and asked case management to evaluate the patient. They were in agreement that the patient needs rehabilitation. The patient denies being suicidal or homicidal and didn't agreed to scope 2. Rehabilitation. For this reason the patient will be discharged home and she will follow-up with rehabilitation. Impression Primary Impression: Mood disorder Scribe Attestation The scribe's documentation has been prepared under my direction and personally reviewed by me in its entirety. I confirm that the note above accurately reflects all work, treatment, procedures, and medical decision making performed by me. Departure Information Dispostion Home / Self-Care Referrals Macy Villar M.D. (PCP) Forms HOME CARE DOCUMENTATION FORM, IMPORTANT VISIT INFORMATION, WORK / SCHOOL INSTRUCTIONS Patient Instructions My [facility] Additional Instructions Follow up with [facility] You were found to have an elevated blood pressure today (>120 sytolic or >90 diastolic). Per medicare guidelines, you need to follow up with this blood pressure screening with your Primary Care Physician (PCP). For a new PCP call [phone]. You received narcotic or benzodiazepene medication while in the emergency room today. Do not drive, operate heavy machinery, or drink alcohol under the influence of this medication. You have been examined and treated today on an emergency basis only. This is not a substitute for, or an effort to provide, complete comprehensive medical care. It is impossible to recognize and treat all injuries or illnesses in a single emergency department visit. It is therefore important that you follow up closely with Dr Villar. Call as soon as possible for an appointment. Thank you for your time and consideration. I look forward to speaking with you again soon. Please don't hesitate to call us if you have any questions.
[2016-12-28 15:27] VITALS: BP 143/93; PULSE 108; O2SAT 98
== END 2016-12-28 15:33 | disposition home or self-care (01) ==
LOC: C.EDB 11:29 → C.EDC 15:33
DX: F39 Unspecified mood [affective] disorder (principal); F41.9 Anxiety disorder, unspecified; F43.10 Post-traumatic stress disorder, unspecified; F32.9 Major depressive disorder, single episode, unspecified; Z83.3 Family history of diabetes mellitus; Z82.49 Family history of ischemic heart disease and other diseases of the circulatory system; Z82.0 Family history of epilepsy and other diseases of the nervous system

== ENCOUNTER 2017-02-20 16:50 | Emergency (ER) | payer BC ==
[~2017-02-20] VITALS: Ht 160 cm; Wt 83.9 kg
[~2017-02-20 16:50] MED LIST changes: +CLON0.2T PO; -TOPI25TA99 PO
[2017-02-20 16:55] VITALS: TEMP 37.5; Ht 160 cm; Wt 83.9 kg
--- NOTE | 2017-02-20 17:09 | EMERGENCY ROOM VISIT NOTE ---
History Report prepared by Cyndi: Stephenie Miller Under the Supervision of: Enoc BarnhartO. First contact with patient: 16:53 Chief Complaint: MENTAL HEALTH EVALUATION Stated Complaint: WITHDRAWL History of Present Illness The patient is a 31 year old female who presents to the Emergency Room with complaints of a mental health evaluation today. The patient states that she fell and hit her head today. She denies passing out. The patient reports feeling dizzy and vomiting prior to the fall. She states that she has recently come off of benzodiazepine. She states that she has anxiety and depression, and that her depression is exacerbated by the benzodiazepine usage. The patient reports that she has been self-medicating with alcohol. She also states that she has been cutting her arms and legs. The patient states that she hasn't cut herself since the early spring, and that she sees a therapist. She denies any seizures. The patient denies suicidal thoughts. Source of History: patient Onset: today Position: other (global) Quality: other (mental health evaluation) Timing: constant Associated Symptoms: + vomiting Review of Systems See HPI for pertinent positives & negatives. A total of 10 systems reviewed and were otherwise negative. Past Medical & Surgical Medical Problems: (1) Alcohol intoxication (2) Anxiety (3) PTSD (post-traumatic stress disorder) (4) Severe depression Family History Diabetes mellitus Gallbladder disease Heart disease Hypertension Seizures Social History Smoking Status: Never Smoker Alcohol Use: occasionally Drug Use: other Marital Status: Housing Status: lives with family Occupation Status: employed Current/Historical Medications Scheduled Clonazepam (Klonopin), 1 MG PO 6XDAILY Escitalopram Oxalate (Lexapro), 30 MG PO DAILY Levonorgestrel (Iud) (Mirena), 20 MCG INT UTER UD Scheduled PRN Sumatriptan Succinate (Imitrex Nasal [place]), 1 SPRAY NA DAILY PRN for Headache Allergies Coded Allergies: Latex (Verified Allergy, Intermediate, ERRYTHEMA, 12/28/16) Sulfa Drugs (Verified Allergy, Mild, 12/28/16) Sulfamethoxazole (Verified Allergy, Mild, 12/28/16) Trimethoprim (Verified Allergy, Mild, 12/28/16) Banana (Unverified Allergy, Unknown, unkn, 12/28/16) Vulcan (Unverified Allergy, Unknown, unknown, 12/28/16) Eggplant (Unverified Allergy, Unknown, hives, 12/28/16) Kiwi (Unverified Allergy, Unknown, hives, 12/28/16) Lentils (Verified Allergy, Unknown, UNKNOWN, 12/28/16) Tuna (Verified Allergy, Unknown, UNKNOWN, 12/28/16) Uncoded Allergies: MELONS (Allergy, Unknown, UNKNOWN, 10/11/13) PEAS (Allergy, Unknown, UNKNOWN, 10/11/13) Physical Exam Vital Signs Date Time Temp Pulse Resp B/P (MAP) Pulse Ox O2 Delivery O2 Flow Rate FiO2 02/21/17 00:16 79 20 143/104 95 02/20/17 22:55 80 20 148/103 98 Room Air 02/20/17 20:58 106 18 130/96 98 Room Air 02/20/17 18:43 93 17 138/92 98 Room Air 02/20/17 16:55 37.5 99 20 146/95 96 Room Air Physical Exam GENERAL: alert, well appearing, well nourished, no distress, non-toxic EYE EXAM: normal conjunctiva, PERRL and EOM's grossly intact OROPHARYNX: no exudate, no erythema, lips, buccal mucosa, and tongue normal and mucous membranes are moist NECK: supple, no nuchal rigidity, no adenopathy, non-tender LUNGS: Clear to auscultation. Normal chest wall mechanics HEART: no murmurs, S1 normal and S2 normal ABDOMEN: abdomen soft, non-tender, normo-active bowel sounds, no masses, no rebound or guarding. BACK: Back is symmetrical on inspection and there is no deformity, no midline tenderness, no CVA tenderness. SKIN: no rashes and no bruising UPPER EXTREMITIES: upper extremities are grossly normal. LOWER EXTREMITIES: No pitting edema. Superficial abrasion and contusion noted to the right pretibial region. NEURO EXAM: Normal sensorium, cranial nerves II-XII grossly intact, normal speech, no gross weakness of arms, no gross weakness of legs. No drift. Finger to nose intact. Gross sensation intact. Odd affect. PSYCH: denies suicidal ideation, homicidal ideation, and hallucinations. Medical Decision & Procedures ER Provider Diagnostic Interpretation: R TIBIA/FIBULA 2 VIEWS ROUTINE HISTORY: 31 years-old Female trauma acute right lower leg pain status post trauma COMPARISON: None available TECHNIQUE: Frontal and lateral views of the right tibia and fibula FINDINGS: There is mild mid pretibial soft tissue swelling without opaque foreign body, acute fracture or dislocation. No significant degenerative changes about the knee or ankle identified. IMPRESSION: Mild mid pretibial soft tissue swelling without opaque foreign body, acute fracture or dislocation. The above report was generated using voice recognition software. It may contain grammatical, syntax or spelling errors. Electronically signed by: Armin Wang M.D. 02/20/2017 7:03 PM HEAD WITHOUT CONTRAST (CT) CLINICAL HISTORY: 31 years-old Female with trauma, vomiting. Acute head trauma with vomiting. TECHNIQUE: Multiple axial CT images of the head were obtained without contrast. A dose lowering technique was utilized adhering to the principles of ALARA. CT DOSE: 537.48 mGy.cm COMPARISON: Head CT 11/14/2016. FINDINGS: No acute intracranial hemorrhage, midline shift, mass, large territorial ischemia or abnormal extra-axial collection. The calvarium is intact. The paranasal sinuses, mastoid air cells, and middle ear cavities are clear. IMPRESSION: No acute intracranial abnormality. The above report was generated using voice recognition software. It may contain grammatical, syntax or spelling errors. Electronically signed by: Armin Wang M.D. 02/20/2017 6:16 PM Laboratory Results 02/20/17 17:35 Red Blood Count 4.35, Mean Corpuscular Volume 91.5, Mean Corpuscular Hemoglobin 31.5, Mean Corpuscular Hemoglobin Concent 34.4, Mean Platelet Volume 8.7, Neutrophils (%) (Auto) 46.3, Lymphocytes (%) (Auto) 39.7, Monocytes (%) (Auto) 6.7, Eosinophils (%) (Auto) 6.9, Basophils (%) (Auto) 0.2, Neutrophils # (Auto) 2.34, Lymphocytes # (Auto) 2.01, Monocytes # (Auto) 0.34, Eosinophils # (Auto) 0.35, Basophils # (Auto) 0.01 02/20/17 17:35 Test 02/20/17 17:18 02/20/17 17:29 02/20/17 17:35 Urine Color YELLOW Urine Appearance CLEAR (CLEAR) Urine pH 6.5 (4.5-7.5) Urine Specific [place] 1.012 (1.000-1.030) Urine Protein NEG (NEG) Urine Glucose (UA) NEG (NEG) Urine Ketones NEG (NEG) Urine Occult Blood NEG (NEG) Urine Nitrite NEG (NEG) Urine Bilirubin NEG (NEG) Urine Urobilinogen NEG (NEG) Urine Leukocyte Esterase NEG (NEG) Urine Opiates Screen NEG (NEG) Urine Methadone, Qualitative NEG (NEG) Urine Barbiturates NEG (NEG) Urine Phencyclidine (PCP) Level NEG (NEG) Ur Amphetamine/Methamphetamine NEG (NEG) MDMA (Ecstasy) Screen NEG (NEG) Urine Benzodiazepines Screen POS (NEG) Urine Cocaine Metabolite NEG (NEG) Urine Marijuana (THC) NEG (NEG) Bedside Glucose 82 mg/dl (70-90) White Blood Count 5.06 K/uL (4.8-10.8) Red Blood Count 4.35 M/uL (4.2-5.4) Hemoglobin 13.7 g/dL (12.0-16.0) Hematocrit 39.8 % (37-47) Mean Corpuscular Volume 91.5 fL (80-100) Mean Corpuscular Hemoglobin 31.5 pg (25-34) Mean Corpuscular Hemoglobin Concent 34.4 g/dl (32-36) Platelet Count 213 K/uL (130-400) Mean Platelet Volume 8.7 fL (7.4-10.4) Neutrophils (%) (Auto) 46.3 % Lymphocytes (%) (Auto) 39.7 % Monocytes (%) (Auto) 6.7 % Eosinophils (%) (Auto) 6.9 % Basophils (%) (Auto) 0.2 % Neutrophils # (Auto) 2.34 K/uL (1.4-6.5) Lymphocytes # (Auto) 2.01 K/uL (1.2-3.4) Monocytes # (Auto) 0.34 K/uL (0.11-0.59) Eosinophils # (Auto) 0.35 K/uL (0-0.5) Basophils # (Auto) 0.01 K/uL (0-0.2) RDW Standard Deviation 45.1 fL (36.4-46.3) RDW Coefficient of Variation 13.6 % (11.5-14.5) Immature Granulocyte % (Auto) 0.2 % Immature Granulocyte # (Auto) 0.01 K/uL (0.00-0.02) Anion Gap 11.0 mmol/L (3-11) Est Creatinine Clear Calc Drug Dose 125.5 ml/min Estimated GFR () 135.5 Estimated GFR (Non- 116.9 BUN/Creatinine Ratio 16.2 (10-20) Calcium Level 9.1 mg/dl (8.5-10.1) Total Bilirubin 0.2 mg/dl (0.2-1) Direct Bilirubin < 0.1 mg/dl (0-0.2) Aspartate Amino Transf (AST/SGOT) 46 U/L (15-37) Alanine Aminotransferase (ALT/SGPT) 34 U/L (12-78) Alkaline Phosphatase 72 U/L (45-117) Total Protein 7.3 gm/dl (6.4-8.2) Albumin 3.7 gm/dl (3.4-5.0) Thyroid Stimulating Hormone (TSH) 1.400 uIu/ml (0.300-4.500) Ethyl Alcohol mg/dL 230.0 mg/dl (0-3) Laboratory results per my review. Medications Administered Medications (Trade) Dose Ordered Sig/Susan Route Start Time Stop Time Status Last Admin Dose Admin Clonazepam (Klonopin Tab) 0.5 mg NOW STAT PO 02/20/17 17:44 02/20/17 17:46 DC 02/20/17 18:11 0.5 MG Acetaminophen (Tylenol Tab) 1,000 mg NOW STAT PO 02/20/17 22:21 02/20/17 22:22 DC 02/20/17 22:21 1,000 MG ED Course 1700: The patient was evaluated in room A7. A complete history and physical exam was performed. 1743: Ordered Clonazepam 0.5 mg PO. 1899: D/W Cody, psych nurse case management, he spoke with and obtained additional information. 1909: Pt awaiting sobriety and assessment. Signed out to Dr. Booth. Medical Decision Differential diagnosis: Etiologies such as fracture, dislocation, intra-abdominal, pneumothorax, intrathoracic , intracranial, neurologic, as well as other traumatic pathologies were entertained. At the time of my interview I did not feel we had ground to involuntarily commit the patient. However concern for her well being and mgmt of her depression/anxiety, as well as use of bzd and etoh. Pt likely not compliant with bzd taper as prescribed by psychiatrist as an outpt. Pt here intoxicated and will be re-evaluated once sober. No evidence of traumatic injury and doubt occult trauma. Labs otw reassuring. Medication Reconcilliation Current Medication List: was personally reviewed by me Blood Pressure Screening Patient's blood pressure: Elevated blood pressure Blood pressure disposition: Elevated BP felt to be situational Impression Primary Impression: Alcohol intoxication Additional Impressions: Depression Anxiety Benzodiazepine dependence Scribe Attestation The scribe's documentation has been prepared under my direction and personally reviewed by me in its entirety. I confirm that the note above accurately reflects all work, treatment, procedures, and medical decision making performed by me. Departure Information Dispostion Still a Patient Referrals Macy Villar M.D. (PCP) Patient Instructions My [facility] Problem Qualifiers Primary Impression: Alcohol intoxication Complication of substance-induced condition: uncomplicated Qualified Codes: F10.920 - Alcohol use, unspecified with intoxication, uncomplicated Additional Impressions: Depression Depression Type: unspecified Qualified Codes: F32.9 - Major depressive disorder, single episode, unspecified
[2017-02-20 17:32] LABS: URINE APPEARANCE CLEAR (CLEAR); URINE BILIRUBIN NEG (NEG); URINE COLOR YELLOW; URINE NITRITE NEG (NEG); URINE PH 6.5 (4.5-7.5); URINE SPECIFIC GRAVITY 1.012 (1.000-1.030); UROBILINOGEN NEG (NEG)
[2017-02-20 17:37] LABS: MANUAL MICROSCOPIC REQUIRED? NO; REVIEW REQ? NO
[2017-02-20] MEDS ORDERED: CLONAZEPAM 0.5 MG TAB PO STA (17:44)
[2017-02-20 17:51] LABS: BENZODIAZEPINE, URINE POS (NEG); COCAINE,URINE NEG (NEG); PHENCYCLIDINE, URINE NEG (NEG)
[2017-02-20 17:57] LABS: BASO % 0.2 %; BASO ABS # 0.01 K/uL (0-0.2); COMPLETE YES; EOS % 6.9 %; HEMATOCRIT 39.8 % (37-47); IG% 0.2 %; LYMPH % 39.7 %; LYMPH ABS # 2.01 K/uL (1.2-3.4); MEAN CELL VOLUME 91.5 fL (80-100); MEAN CORPUSCULAR HEMOGLOBIN 31.5 pg (25-34); MEAN CORPUSCULAR HGB CONC 34.4 g/dl (32-36); MEAN PLATELET VOLUME 8.7 fL (7.4-10.4); MONO % 6.7 %; NEUT % 46.3 %; PLATELET COUNT 213 K/uL (130-400); RED BLOOD COUNT 4.35 M/uL (4.2-5.4); WHITE BLOOD COUNT 5.06 K/uL (4.8-10.8)
[2017-02-20] MEDS ORDERED: CLON1TAB3 PO (18:10)
--- NOTE | 2017-02-20 18:17 | DIAGNOSTIC IMAGING REPORT ---
HEAD WITHOUT CONTRAST (CT) CLINICAL HISTORY: 31 years-old Female with trauma, vomiting. Acute head trauma with vomiting. TECHNIQUE: Multiple axial CT images of the head were obtained without contrast. A dose lowering technique was utilized adhering to the principles of ALARA. CT DOSE: 537.48 mGy.cm COMPARISON: Head CT 11/14/2016. FINDINGS: No acute intracranial hemorrhage, midline shift, mass, large territorial ischemia or abnormal extra-axial collection. The calvarium is intact. The paranasal sinuses, mastoid air cells, and middle ear cavities are clear. IMPRESSION: No acute intracranial abnormality. The above report was generated using voice recognition software. It may contain grammatical, syntax or spelling errors. Electronically signed by: Armin Wang M.D. 02/20/2017 6:16 PM Dictated Date/Time: 02/20/2017 6:14 PM
[2017-02-20 18:20] LABS: ALKALINE PHOSPHATASE 72 U/L (45-117); ALT/SGPT 34 U/L (12-78); AST/SGOT 46 U/L (15-37); BLOOD UREA NITROGEN 11 mg/dl (7-18); BUN/CREATININE RATIO 16.2 (10-20); CALCIUM 9.1 mg/dl (8.5-10.1); CARBON DIOXIDE 23 mmol/L (21-32); CHLORIDE 108 mmol/L (98-107); CREATININE 0.66 mg/dl (0.60-1.20); GLUCOSE 93 mg/dl (70-99); POTASSIUM 3.7 mmol/L (3.5-5.1); SODIUM 142 mmol/L (136-145)
--- NOTE | 2017-02-20 19:05 | DIAGNOSTIC IMAGING REPORT ---
R TIBIA/FIBULA 2 VIEWS ROUTINE HISTORY: 31 years-old Female trauma acute right lower leg pain status post trauma COMPARISON: None available TECHNIQUE: Frontal and lateral views of the right tibia and fibula FINDINGS: There is mild mid pretibial soft tissue swelling without opaque foreign body, acute fracture or dislocation. No significant degenerative changes about the knee or ankle identified. IMPRESSION: Mild mid pretibial soft tissue swelling without opaque foreign body, acute fracture or dislocation. The above report was generated using voice recognition software. It may contain grammatical, syntax or spelling errors. Electronically signed by: Armin Wang M.D. 02/20/2017 7:03 PM Dictated Date/Time: 02/20/2017 7:02 PM
[2017-02-20] MEDS ORDERED: ACETAMINOPHEN 500 MG TAB PO STA (22:21)
--- NOTE | 2017-02-21 00:07 | EMERGENCY ROOM VISIT NOTE ---
ED Visit Note First contact with patient: 22:21 I received this patient at change of shift signout from Dr. Brooks. Please see her history and physical for complete details of the patient's presentation. The patient is a 31-year-old female who presented to the emergency department for a mental health evaluation. The patient was thought to be having suicidal ideation but she was found to be intoxicated in her mental health evaluation was pending an observation period until she was no longer clinically intoxicated. The patient was medically cleared in the emergency department. She was no longer clinically intoxicated and she was evaluated by the mental health emergency Department sample case porter. The patient was found to have significant stressors but this time she does not have any specific suicidal ideation and does not meet criteria for involuntary admission at this time. The patient has problems with benzodiazepines and was taking medications improperly as well as supplementing her self-medication with alcohol. He evaluated the patient after she was seen by the emergency Department mental health sample case porter. She was instructed to continue all medications as prescribed. She was also encouraged to avoid any further alcoholic beverages. She was also encouraged her Primary therapist as soon as possible. I also encouraged her to return to the emergency department immediately or call crisis symptoms change worsen or the need arises.
[2017-02-21 00:16] VITALS: BP 143/104; PULSE 79; O2SAT 95
[2017-02-23 11:07] LABS: HYDROXYETHYLFLURAZEPAM CONF NEGATIVE NG/ML (CUTOFF=50); HYDROXYMIDAZOLAM NEGATIVE NG/ML (CUTOFF=50); HYDROXYTRIAZOLAM CONF NEGATIVE NG/ML (CUTOFF=50); TEMAZEPAM CONF 859 NG/ML (CUTOFF=50)
== END 2017-02-21 00:19 | disposition home or self-care (01) ==
LOC: EDBD 16:50 → C.EDA 16:51
DX: F10.129 Alcohol abuse with intoxication, unspecified (principal); Y90.7 Blood alcohol level of 200-239 mg/100 ml; F32.9 Major depressive disorder, single episode, unspecified; F41.9 Anxiety disorder, unspecified; F13.20 Sedative, hypnotic or anxiolytic dependence, uncomplicated; Z79.899 Other long term (current) drug therapy; Z88.2 Allergy status to sulfonamides; Z88.8 Allergy status to other drugs, medicaments and biological substances; Z91.040 Latex allergy status; Z91.018 Allergy to other foods; Z83.3 Family history of diabetes mellitus; Z83.79 Family history of other diseases of the digestive system; Z82.49 Family history of ischemic heart disease and other diseases of the circulatory system; Z82.0 Family history of epilepsy and other diseases of the nervous system

== ENCOUNTER 2017-03-01 01:37 | Emergency (ER) | payer BC ==
[~2017-03-01 01:37] MED LIST changes: -CLON0.2T PO; +CLON1TAB3 PO; -NAPR-998 PO
[2017-03-01 01:40] VITALS: TEMP 37.1; Ht 160 cm
[2017-03-01] MEDS ORDERED: CLON2TAB3 PO (02:04)
[2017-03-01] MEDS ORDERED: ARIP2TAB3 PO (02:04)
[2017-03-01] MEDS ORDERED: ONDANSETRON INJ 2 MG/ML 2 ML VIAL IV STA (02:21)
[2017-03-01] MEDS ORDERED: SODIUM CHLORIDE 0.9% 1000ML 1,000 ML IV STA (02:21)
--- NOTE | 2017-03-01 02:28 | EMERGENCY ROOM VISIT NOTE ---
History Report prepared by Cyndi: Arley Pro Under the Supervision of: Enoc BarnhartO. First contact with patient: 01:57 Chief Complaint: SEIZURE Stated Complaint: POSSIBLE SEIZURE,NAUSEA,BENZE WITHDRAW History of Present Illness The patient is a 31 year old female who presents to the Emergency Room with complaints of a worsening Benzene withdraw beginning a few days ago. The patient states this is her third time here in the past week. She reports she had the flu and is on a benzo taper. She reports she has been vomiting everything up. The patient notes she able to keep fluids down, but the moment she swallows anything solid, including a pill, she vomits. She states she is self-meditating on alcohol because she cannot keep her benzo taper in her system. The patient reports she has had three alcoholic beverages today. She notes she was told it would take a year to break her addiction. The patient states she is currently on 14mg of clonazepam daily. She reports her bones do not hurt as much. The patient notes she has been experiencing fever, chills, diarrhea, anxiety, and nausea. She states she is also experiencing an increase in her depression as she withdraws. The patient reports the more she withdraws, the more she thinks about hurting herself. She notes she cut herself five years ago. The patient denies blood in vomit, blood in diarrhea, cough, cold, and homicidal ideations. Source of History: patient Onset: a few days ago Position: other (global) Quality: other (benzene) Timing: worsening Associated Symptoms: No fevers, No chills, No cough, No diarrhea Note: Associated symptoms: worsening anxiety and depression Denies: blood in vomit, blood in diarrhea, cold, and homicidal ideations. Review of Systems See HPI for pertinent positives & negatives. A total of 10 systems reviewed and were otherwise negative. Past Medical & Surgical Medical Problems: (1) Alcohol intoxication (2) Anxiety (3) PTSD (post-traumatic stress disorder) (4) Severe depression Family History Diabetes mellitus Gallbladder disease Heart disease Hypertension Seizures Social History Smoking Status: Never Smoker Alcohol Use: occasionally Drug Use: other Marital Status: Housing Status: lives with family Occupation Status: employed Current/Historical Medications Scheduled Aripiprazole (Abilify), 2 MG PO DAILY Clonazepam (Klonopin), 2 MG PO 7 X DAY Escitalopram Oxalate (Lexapro), 30 MG PO DAILY Levonorgestrel (Iud) (Mirena), 20 MCG INT UTER UD Allergies Coded Allergies: Latex (Verified Allergy, Intermediate, ERRYTHEMA, 03/01/17) Sulfa Drugs (Verified Allergy, Mild, 03/01/17) Sulfamethoxazole (Verified Allergy, Mild, 03/01/17) Trimethoprim (Verified Allergy, Mild, 03/01/17) Banana (Verified Allergy, Unknown, unkn, 03/01/17) Parker (Verified Allergy, Unknown, unknown, 03/01/17) Eggplant (Verified Allergy, Unknown, hives, 03/01/17) Kiwi (Verified Allergy, Unknown, hives, 03/01/17) Lentils (Verified Allergy, Unknown, UNKNOWN, 03/01/17) Tuna (Verified Allergy, Unknown, UNKNOWN, 03/01/17) Uncoded Allergies: MELONS (Allergy, Unknown, UNKNOWN, 10/11/13) PEAS (Allergy, Unknown, UNKNOWN, 10/11/13) Physical Exam Vital Signs Date Time Temp Pulse Resp B/P (MAP) Pulse Ox O2 Delivery O2 Flow Rate FiO2 03/01/17 07:47 87 18 167/107 98 Room Air 03/01/17 05:44 85 18 153/101 98 Room Air 03/01/17 05:10 91 18 153/105 98 Room Air 03/01/17 04:33 74 03/01/17 04:16 78 18 145/96 96 Room Air 03/01/17 03:40 97 18 175/117 98 Room Air 03/01/17 01:40 37.1 91 20 134/91 96 Room Air Physical Exam GENERAL: alert, well appearing, well nourished, no distress, non-toxic, smells of EtOH. Odd affect. EYE EXAM: normal conjunctiva, PERRL and EOM's grossly intact OROPHARYNX: no exudate, no erythema, lips, buccal mucosa, and tongue normal and mucous membranes are moist NECK: supple, no nuchal rigidity, no adenopathy, non-tender LUNGS: Clear to auscultation. Normal chest wall mechanics HEART: no murmurs, S1 normal and S2 normal ABDOMEN: abdomen soft, non-tender, normo-active bowel sounds, no masses, no rebound or guarding. BACK: Back is symmetrical on inspection and there is no deformity, no midline tenderness, no CVA tenderness. SKIN: no rashes and no bruising UPPER EXTREMITIES: upper extremities are grossly normal. LOWER EXTREMITIES: No pitting edema. NEURO EXAM: Normal sensorium, cranial nerves II-XII grossly intact, normal speech, no gross weakness of arms, no gross weakness of legs. Medical Decision & Procedures ER Provider Diagnostic Interpretation: XRAY: Chest: A 2 view study was reviewed, no effusion, no wide mediastina, no pulmonary edema, no focal infiltrate was seen. XRAY: Abdomen: A 2 view study was reviewed, no SBO, no free air, moderate stool burden, IUD noted was seen. Laboratory Results 03/01/17 02:40 Red Blood Count 4.48, Mean Corpuscular Volume 90.8, Mean Corpuscular Hemoglobin 31.7, Mean Corpuscular Hemoglobin Concent 34.9, Mean Platelet Volume 8.5, Neutrophils (%) (Auto) 43.1, Lymphocytes (%) (Auto) 41.1, Monocytes (%) (Auto) 7.9, Eosinophils (%) (Auto) 7.5, Basophils (%) (Auto) 0.4, Neutrophils # (Auto) 2.13, Lymphocytes # (Auto) 2.03, Monocytes # (Auto) 0.39, Eosinophils # (Auto) 0.37, Basophils # (Auto) 0.02 03/01/17 02:40 Test 03/01/17 00:00 03/01/17 02:40 Urine Color YELLOW Urine Appearance CLEAR (CLEAR) Urine pH 6.0 (4.5-7.5) Urine Specific Rayle 1.014 (1.000-1.030) Urine Protein NEG (NEG) Urine Glucose (UA) NEG (NEG) Urine Ketones NEG (NEG) Urine Occult Blood NEG (NEG) Urine Nitrite NEG (NEG) Urine Bilirubin NEG (NEG) Urine Urobilinogen NEG (NEG) Urine Leukocyte Esterase NEG (NEG) Urine Opiates Screen NEG (NEG) Urine Methadone, Qualitative NEG (NEG) Urine Barbiturates NEG (NEG) Urine Phencyclidine (PCP) Level NEG (NEG) Ur Amphetamine/Methamphetamine NEG (NEG) MDMA (Ecstasy) Screen NEG (NEG) Urine Benzodiazepines Screen POS (NEG) Urine Cocaine Metabolite NEG (NEG) Urine Marijuana (THC) NEG (NEG) White Blood Count 4.94 K/uL (4.8-10.8) Red Blood Count 4.48 M/uL (4.2-5.4) Hemoglobin 14.2 g/dL (12.0-16.0) Hematocrit 40.7 % (37-47) Mean Corpuscular Volume 90.8 fL (80-100) Mean Corpuscular Hemoglobin 31.7 pg (25-34) Mean Corpuscular Hemoglobin Concent 34.9 g/dl (32-36) Platelet Count 205 K/uL (130-400) Mean Platelet Volume 8.5 fL (7.4-10.4) Neutrophils (%) (Auto) 43.1 % Lymphocytes (%) (Auto) 41.1 % Monocytes (%) (Auto) 7.9 % Eosinophils (%) (Auto) 7.5 % Basophils (%) (Auto) 0.4 % Neutrophils # (Auto) 2.13 K/uL (1.4-6.5) Lymphocytes # (Auto) 2.03 K/uL (1.2-3.4) Monocytes # (Auto) 0.39 K/uL (0.11-0.59) Eosinophils # (Auto) 0.37 K/uL (0-0.5) Basophils # (Auto) 0.02 K/uL (0-0.2) RDW Standard Deviation 44.7 fL (36.4-46.3) RDW Coefficient of Variation 13.7 % (11.5-14.5) Immature Granulocyte % (Auto) 0.0 % Immature Granulocyte # (Auto) 0.00 K/uL (0.00-0.02) Anion Gap 9.0 mmol/L (3-11) Estimated GFR () 137.6 Estimated GFR (Non- 118.7 BUN/Creatinine Ratio 16.5 (10-20) Calcium Level 8.0 mg/dl (8.5-10.1) Magnesium Level 2.2 mg/dl (1.8-2.4) Total Bilirubin 0.2 mg/dl (0.2-1) Aspartate Amino Transf (AST/SGOT) 63 U/L (15-37) Alanine Aminotransferase (ALT/SGPT) 44 U/L (12-78) Alkaline Phosphatase 89 U/L (45-117) Troponin I < 0.015 ng/ml (0-0.045) Total Protein 7.2 gm/dl (6.4-8.2) Albumin 3.7 gm/dl (3.4-5.0) Globulin 3.5 gm/dl (2.5-4.0) Albumin/Globulin Ratio 1.1 (0.9-2) Lipase 302 U/L (73-393) Thyroid Stimulating Hormone (TSH) 3.110 uIu/ml (0.300-4.500) Human Chorionic Gonadotropin, Qual NEG (NEG) Ethyl Alcohol mg/dL 247.0 mg/dl (0-3) Laboratory results per my review. Medications Administered Medications (Trade) Dose Ordered Sig/Susan Route Start Time Stop Time Status Last Admin Dose Admin Sodium Chloride 1,000 ml @ 999 mls/hr Q1H1M STAT IV 03/01/17 02:21 03/01/17 03:21 DC 03/01/17 02:49 999 MLS/HR Ondansetron HCl (Zofran Inj) 4 mg NOW STAT IV 03/01/17 02:21 03/01/17 02:24 DC 03/01/17 02:52 4 MG ECG Indication: nausea Rate (beats per minute): 79 Rhythm: normal sinus Findings: no acute ischemic change, no ectopy ED Course 0212: The patient was evaluated in room B12B. A complete history and physical exam was performed. 0221: Ordered Ondansetron HCl 4mg IV, Sodium Chloride 1000 ml @ 999 mls/hr IV 0459: I discussed the results with the patient upon reevaluation. She has not vomited while in the ED. The patient is keeping down PO. 0612: She is trying to leave to get the Uber she requested in the waiting room. 0638: I discussed the patient's case with the at bedside. He is still concerned about her alcohol use to cope. 0705: The is uncomfortable with her going home. He thinks she needs rehab. There is a plan for her to go live with her parents, so she will be closer to her psychiatrist in [place]. 0723: I spoke with the and both individually, and together. Medical Decision Differential diagnosis: Etiologies such as gastroenteritis, food borne illness, infections, appendicitis , diverticulitis, inflammatory bowel disease, obstruction, GI bleed, biliary pathology, as well as others were entertained. Pt here previously with similar presentation. Pt using etoh to cope with benzo withdrawal. Pt denies active SI or plan. Pt and in the process of and pt living with a friend at this time. uncomfortable assuming responsibility for her and pt states her parents are coming to get her and she is going to live with them bc it's closer to her psychiatrist. Pt here cooperative. Labs otw reassuring. No evidence of seizures, no evidence of alcohol withdrawal. Medication Reconcilliation Current Medication List: was personally reviewed by me Blood Pressure Screening Patient's blood pressure: Elevated blood pressure Blood pressure disposition: Elevated BP felt to be situational Impression Primary Impression: Alcohol intoxication Additional Impressions: Anxiety Depression Benzodiazepine abuse Scribe Attestation The scribe's documentation has been prepared under my direction and personally reviewed by me in its entirety. I confirm that the note above accurately reflects all work, treatment, procedures, and medical decision making performed by me. Departure Information Dispostion Home / Self-Care Referrals No Doctor, Assigned (PCP) Patient Instructions [facility] Additional Instructions Please do not drink alcohol. Please take your medications as prescribed and do not take extra. Please continue seeing your psychiatrist and please reconsider rehab for your addiction problems. Please stay with someone at all times. If you have any recurrent vomiting, develop abdominal pain, fevers, or you have any other new or concerning symptoms, please return to the emergency room. Problem Qualifiers Primary Impression: Alcohol intoxication Complication of substance-induced condition: uncomplicated Qualified Codes: F10.920 - Alcohol use, unspecified with intoxication, uncomplicated Additional Impressions: Depression Depression Type: unspecified Qualified Codes: F32.9 - Major depressive disorder, single episode, unspecified
[2017-03-01 02:55] LABS: BASO % 0.4 %; BASO ABS # 0.02 K/uL (0-0.2); COMPLETE YES; EOS % 7.5 %; HEMATOCRIT 40.7 % (37-47); LYMPH % 41.1 %; LYMPH ABS # 2.03 K/uL (1.2-3.4); MEAN CELL VOLUME 90.8 fL (80-100); MEAN CORPUSCULAR HEMOGLOBIN 31.7 pg (25-34); MEAN CORPUSCULAR HGB CONC 34.9 g/dl (32-36); MEAN PLATELET VOLUME 8.5 fL (7.4-10.4); MONO % 7.9 %; NEUT % 43.1 %; PLATELET COUNT 205 K/uL (130-400); RED BLOOD COUNT 4.48 M/uL (4.2-5.4); WHITE BLOOD COUNT 4.94 K/uL (4.8-10.8)
[2017-03-01 03:11] LABS: URINE APPEARANCE CLEAR (CLEAR); URINE BILIRUBIN NEG (NEG); URINE COLOR YELLOW; URINE NITRITE NEG (NEG); URINE SPECIFIC GRAVITY 1.014 (1.000-1.030); UROBILINOGEN NEG (NEG); ZZUR CULT IF INDIC CLEAN CATCH NO
[2017-03-01 03:16] LABS: MANUAL MICROSCOPIC REQUIRED? NO; REVIEW REQ? NO
[2017-03-01 03:18] LABS: ALT/SGPT 44 U/L (12-78); AST/SGOT 63 U/L (15-37); BLOOD UREA NITROGEN 10 mg/dl (7-18); BUN/CREATININE RATIO 16.5 (10-20); CARBON DIOXIDE 26 mmol/L (21-32); CHLORIDE 111 mmol/L (98-107); CREATININE 0.63 mg/dl (0.60-1.20); GLUCOSE 92 mg/dl (70-99); MAGNESIUM 2.2 mg/dl (1.8-2.4); POTASSIUM 3.4 mmol/L (3.5-5.1); SODIUM 146 mmol/L (136-145)
[2017-03-01 03:26] LABS: PREG INTERNAL NEGATIVE QC NEG CLEAR BACKGROUND; PREG INTERNAL POSITIVE QC POS CONTROL LINE
[2017-03-01 03:30] LABS: ALB/GLOB RATIO 1.1 (0.9-2); ALKALINE PHOSPHATASE 89 U/L (45-117)
[2017-03-01 03:37] LABS: BENZODIAZEPINE, URINE POS (NEG); COCAINE,URINE NEG (NEG); PHENCYCLIDINE, URINE NEG (NEG)
--- NOTE | 2017-03-01 07:14 | DIAGNOSTIC IMAGING REPORT ---
ABDOMEN 2VIEW W/PA CHEST RTN CLINICAL HISTORY: 31 years-old Female presenting with n/v/d. TECHNIQUE: PA view of the chest and supine and upright views of the abdomen were obtained. COMPARISON: None. FINDINGS: Cardiomediastinal silhouette normal. Lungs and pleural spaces clear. Moderate stool burden throughout the colon. No gross pneumoperitoneum. An intrauterine device projects over the pelvis. No calcifications project over the kidneys allowing for bowel gas and stool. Few pelvic phleboliths. Osseous structures normal. IMPRESSION: 1. No acute cardiopulmonary disease. 2. Moderate stool burden. No bowel obstruction. Electronically signed by: Roman Marcelo M.D. 03/01/2017 7:13 AM Dictated Date/Time: 03/01/2017 7:12 AM
[2017-03-01 07:47] VITALS: BP 167/107; PULSE 87; O2SAT 98
[2017-03-03 08:14] LABS: HYDROXYETHYLFLURAZEPAM CONF NEGATIVE NG/ML (CUTOFF=50); HYDROXYMIDAZOLAM NEGATIVE NG/ML (CUTOFF=50); HYDROXYTRIAZOLAM CONF NEGATIVE NG/ML (CUTOFF=50); TEMAZEPAM CONF 1020 NG/ML (CUTOFF=50)
== END 2017-03-01 08:09 | disposition home or self-care (01) ==
LOC: C.EDB 01:39
DX: F10.920 Alcohol use, unspecified with intoxication, uncomplicated (principal); F41.9 Anxiety disorder, unspecified; F32.9 Major depressive disorder, single episode, unspecified; F13.10 Sedative, hypnotic or anxiolytic abuse, uncomplicated; Z83.3 Family history of diabetes mellitus; Z82.49 Family history of ischemic heart disease and other diseases of the circulatory system; Z82.0 Family history of epilepsy and other diseases of the nervous system; Z79.899 Other long term (current) drug therapy

== ENCOUNTER 2021-05-30 15:12 | Inpatient (IN) ==
[2021-05-30 15:42] LABS: Basophils # (auto) 0.01 K/uL (0-0.2); Basophils % (auto) 0.2 %; Eosinophils % (auto) 1.9 %; Hematocrit (blood only) 46.3 % (37-47); Hemoglobin 15.9 g/dL (12.0-16.0); Lymphocytes # (auto) 1.33 K/uL (1.2-3.4); Lymphocytes % (auto) 25.5 %; Mean Corpuscular Hemoglobin 33.1 pg (25-34); Mean Corpuscular Hgb Conc 34.3 g/dL (32-36); Mean Corpuscular Volume 96.3 fL (80-100); Mean Platelet Volume 8.7 fL (7.4-10.4); Monocytes # (auto) 0.27 K/uL (0.11-0.59); Monocytes % (auto) 5.2 %; Neutrophils % (auto) 67.2 %; Platelet Count 235 K/uL (130-400); RDW Coefficient of Variation 14.9 % (11.5-14.5); RDW Standard Deviation 52.9 fL (36.4-46.3); Red Blood Count 4.81 M/uL (4.2-5.4); White Blood Count 5.21 K/uL (4.8-10.8)
[2021-05-30 16:12] LABS: Alanine Aminotransferase 131 (12-78); Albumin Level 3.9 gm/dl (3.4-5.0); Aspartate Aminotransferase 130 U/L (15-37); BUN Creatinine Ratio 8.6 (10-20); Blood Urea Nitrogen 6 mg/dl (7-18); Carbon Dioxide 24 mmol/L (21-32); Chloride 108 mmol/L (98-107); Est GFR (African American) 122.8 ml/min; Glucose 101 mg/dl (70-99); Lipase 116 U/L (73-393); Potassium 3.7 mmol/L (3.5-5.1); Sodium 143 mmol/L (136-145)
[2021-05-30 16:14] LABS: Alkaline Phosphatase 91 U/L (45-117); Bilirubin,Total 0.4 mg/dl (0.2-1); Globulin 4.1 gm/dl (2.5-4.0)
[2021-05-30] MEDS ORDERED: ONDANSETRON INJ 2 MG/ML 2 ML VIAL IV STA (16:20)
[2021-05-30] MEDS ORDERED: SODIUM CHLORIDE 0.9% 1000ML 2,000 ML IV SCH (16:30)
[2021-05-30 17:20] LABS: Acetaminophen < 2 ug/ml (10-30); Salicylate < 1.7 mg/dl (2.8-20)
[2021-05-30 18:18] LABS: Appearance Urine Clear (Clear); Bacteria Urine Automated 1+ (Negative); Bilirubin Urine Negative (Negative); Blood Urine Negative (Negative); Color Urine Yellow; Epithelial Cell Urine Auto >30 /lpf (0-5); Glucose Urine UA Negative (Negative); Ketones Urine 2+ (Negative); Leukocyte Esterase Urine Negative (Negative); Nitrite Urine Negative (Negative); Protein Urine Trace (Negative); RBC Urine Automated 0-4 /hpf (0-4); Specific Gravity Urine 1.017 (1.000-1.030); Urobilinogen Urine Negative (Negative); pH Urine 5.5 (4.5-7.5)
--- NOTE | 2021-05-30 18:22 | Emergency Department Note ---
Impression & Plan Suicidal ideation, Polypharmacy, Alcohol intoxication ED Provider Note CHIEF COMPLAINT: overdose, "withdrawal" HISTORY OF PRESENT ILLNESS: This 35 yo female patient presents to the emergency department with c/o medication w/d. Patient states she had a vomiting and diarrheal illness that caused her to miss some doses of her Valium and Lexapro. She began to withdrawal and was unable to keep her medications down. In an effort to "curb the withdrawal" the patient began to drink alcohol and used kratom which she bought online. Patient states she has a longstanding history of benzodiazepine dependency despite attempting to cut off of the multiple times. She admits that she sees a headache clinic in [place] where she receives IM ketamine. Patient denies any recent fevers, chills, chest pain or shortness of breath. She states she is "scared." When patient is asked where she has received care in the past, the patient states she was last admitted to our facility 2 years ago although there is no record currently. Patient also states she was admitted in [place] but is unable to come up with the name of the hospital. REVIEW OF SYSTEMS: A review of systems was performed with positives and pertinent negatives listed in the history of present illness. 10 systems were reviewed and are otherwise negative. ALLERGIES: see below MEDICATIONS: see below PMH: see below SOCIAL HISTORY: see below DDx: Overdose, toxicologic, infection, hypoglycemia, electrolyte abnormalities, cardiac sources, intracerebral event, neurologic, trauma, as well as other pathologies. PHYSICAL EXAM: Vital signs reviewed. General: Groggy-appearing 35 yo female, in no significant distress. HEENT: No scleral icterus, PERRLA, pupils dilated at 5 mm bilaterally, neck supple. Cardiovascular: Regular rate and rhythm, no extra sounds. Pulmonary: Clear to auscultation bilaterally, normal work of breathing. Abdomen: Soft, nontender, nondistended, positive bowel sounds. Musculoskeletal: Atraumatic, no peripheral edema. Neurologic: Patient somnolent but answers questions, speech is clear Psych: +SI, -HI Skin: Warm, dry, no rash EMERGENCY DEPARTMENT COURSE/MDM: This patient was evaluated and appeared to be in no significant distress. IV access was obtained and laboratory work was d rawn. Patient was placed on the convention worker and noted to be slightly tachycardic. He was hydrated with normal saline solution. Patient's medication list is fairly impressive including medications purchased via the Internet and a neurology clinic Rx ketamine IM for headaches. Patient did not immediately admit to me that she took diclazapam (benzo purchased online) but stated to the [employer] she did so at about 0430 this am in an effort to commit suicide. She stated that she has been "trying to all week." Patient stated that she had not had much to drink but just enough to "take the edge off however her blood alcohol is noted to be 242. Patient is likely coming off of her pr escribed medications so may be in a bit of serotonin withdrawal but is also taking many illicit substances and alcohol. Patient was given 25 mg of Benadryl p.o. for symptomatic control. Patient will require observation for medical clearance and psychiatric case management evaluation at that time. She and her were informed of the findings and plan. Patient is agreeable at this time. MONITORING: An order for cardiac monitoring was placed and the patient is noted to be in a NSR at 98 beats per minute. EKG: NSR at 95 bpm, nonspecific ST changes. Normal axis. Prolonged QT interval at 507. No PVC, no PAC. DISPOSITION: Still in ED patient Past Med/Surg History Medical History Alcohol use disorder, moderate, dependence Allergic rhinitis Anxiety Anxiety Depression Depression, unspecified Headache History of food allergy Insomnia Moderate benzodiazepine use disorder Post traumatic stress disorder (PTSD) PTSD (post-traumatic stress disorder) Family History Other No pertinent family history Social History Smoking Status: Unknown if ever smoked Preferred Language: Belizean Communication Ability: Effective Fish Stringer Assembler Required: No Beliefs That Will Affect Care: None Current Living Situation: Family Feels Safe at Home: Yes and Hesitant to Answer Assistive Devices: Glasses Allergies Allergies Allergy/AdvReac Type Severity Reaction Status Date / Time latex Allergy Intermediate ERRYTHEMA Verified 06/01/21 09:15 trimethoprim Allergy Mild Unknown Verified 06/01/21 09:15 banana Allergy Unknown unkn Verified 06/01/21 09:15 cantaloupe Allergy Unknown Unknown Verified 06/02/21 12:17 cucumber Allergy Unknown unknown Verified 06/01/21 09:15 eggplant Allergy Unknown Unknown Verified 06/02/21 12:19 kiwi Allergy Unknown hives Verified 06/01/21 09:15 lentils Allergy Unknown UNKNOWN Verified 06/01/21 09:15 melon Allergy Unknown Unknown Verified 06/02/21 12:17 peas Allergy Unknown Unknown Verified 06/02/21 12:19 Sulfa (Sulfonamide Allergy Unknown Unknown Verified 06/01/21 09:15 Antibiotics) sulfamethoxazole Allergy Unknown Unknown Verified 06/01/21 09:15 tuna oil Allergy Unknown UNKNOWN Verified 06/01/21 09:15 Home Meds Home Medications Medication Instructions Recorded Confirmed bismuth subsalicylate 262 mg/15 mL 524 mg PO DIRECTED PRN 12/23/18 12/23/18 oral suspension (Pepto-Bismol) bupropion HCl 100 mg tablet,12 hr 100 mg PO DAILY 12/23/18 12/23/18 sustained-release clonidine HCl 0.2 mg tablet 0.2 mg PO HS 12/23/18 12/23/18 escitalopram oxalate 10 mg tablet 30 mg PO DAILY 12/23/18 12/23/18 (Lexapro) gabapentin 300 mg tablet,extended 300 mg PO BID 12/23/18 12/23/18 release 24 hr propranolol 40 mg tablet 40 mg PO BID 12/23/18 12/23/18 cholecalciferol (vitamin D3) 125 1 PO .Take 1 tablet daily tab 02/15/19 02/15/19 mcg (5,000 unit) tablet diazepam 5 mg tablet PO .Patient is on a tape tab 02/15/19 02/15/19 epinephrine 0.3 mg/0.3 mL SUBCUT ea 02/15/19 02/15/19 injection, auto-injector escitalopram oxalate 20 mg tablet 20 mg PO DAILY tab 02/15/19 02/15/19 levonorgestrel 20 mcg/24 hours (7 IU ea 02/15/19 02/15/19 yrs) 52 mg intrauterine device lisdexamfetamine 30 mg capsule PO .TAKE 1 CAPSULE DAILY cap 02/15/19 02/15/19 omega-3 fatty acids [Fish Oil PO 02/15/19 02/15/19 Concentrate] vitamin B complex (B 1 tab PO DAILY 02/15/19 02/15/19 Complex-Vitamin B12) Diclazepam 0 mg PO DIRECTED 05/30/21 05/30/21 baclofen 10 mg tablet 10 mg PO TID PRN 05/30/21 05/30/21 clonidine HCl 0.2 mg tablet 0.2 mg PO BID 05/30/21 05/30/21 escitalopram oxalate 20 mg tablet 2 mg PO DAILY 05/30/21 05/30/21 gabapentin 600 mg tablet 600 mg PO BID 05/30/21 05/30/21 hydroxyzine HCl 25 mg tablet 25 mg PO HS 05/30/21 05/30/21 ketamine 10 mg/mL injection 0 mg IM DIRECTED 05/30/21 05/30/21 solution mirtazapine 7.5 mg tablet 7.5 mg PO HS PRN 05/30/21 05/30/21 ondansetron 4 mg disintegrating 4 mg PO BID PRN 05/30/21 05/30/21 tablet propranolol 20 mg tablet 20 mg PO DAILY PRN 05/30/21 05/30/21 Results & Data (ED) Vital Signs Vital Signs - 24 hr 05/30/21 15:21 05/30/21 16:20 05/30/21 18:16 Temperature 36.7 C Temperature Source Temporal Artery Scan Pulse Rate 110 H 98 H Pulse Rate [Apical] 94 H 93 H Pulse Rhythm Regular Pulse Strength Normal Respiratory Rate 20 17 18 Respiratory Effort / Characteristics Non-Labored Spontaneous Non-Labored Spontaneous Respiratory Depth Normal Normal Respiratory Pattern Regular Blood Pressure [Left Arm] 111/94 137/87 Blood Pressure Mean [Left Arm] 99 103 Blood Pressure Position Sitting Pulse Oximetry 97 95 98 Oxygen Delivery Method Room Air Room Air Room Air Sepsis Recent Fever Within 48 Hours No Sepsis New/Unexplained Change in Mental Status N/A Sepsis Action Taken by Nursing No Action Required Home Medications Current Medication List: was personally reviewed by me Laboratory Data Attestation: I reviewed the patient's lab results. Result diagrams: 06/03/21 07:24 06/03/21 07:24 Lab Results 05/30/21 05/30/21 05/30/21 Range/Units 15:33 15:33 15:33 WBC 5.21 (4.8-10.8) K/uL RBC 4.81 (4.2-5.4) M/uL Hgb 15.9 (12.0-16.0) g/dL Hct 46.3 (37-47) % MCV 96.3 (80-100) fL MCH 33.1 (25-34) pg MCHC 34.3 (32-36) g/dL RDW Std Deviation 52.9 H (36.4-46.3) fL RDW Coeff of Sotero 14.9 H (11.5-14.5) % Plt Count 235 (130-400) K/uL MPV 8.7 (7.4-10.4) fL Immature Gran % (Auto) 0.0 % Neut % (Auto) 67.2 % Lymph % (Auto) 25.5 % Grainger % (Auto) 5.2 % Eos % (Auto) 1.9 % Baso % (Auto) 0.2 % Neut # (Auto) 3.50 (1.4-6.5) K/uL Lymph # (Auto) 1.33 (1.2-3.4) K/uL Grainger # (Auto) 0.27 (0.11-0.59) K/uL Eos # (Auto) 0.10 (0-0.5) K/uL Baso # (Auto) 0.01 (0-0.2) K/uL Immature Gran # (Auto) 0.00 (0.00-0.02) K/uL Sodium 143 (136-145) mmol/L Potassium 3.7 (3.5-5.1) mmol/L Chloride 108 H (98-107) mmol/L Carbon Dioxide 24 (21-32) mmol/L Anion Gap 11.0 (3-11) BUN 6 L (7-18) mg/dl Creatinine 0.73 (0.6-1.2) mg/dl Est Cr Clr Drug Dosing Not Reportable Est GFR ( Amer) 122.8 ml/min Est GFR (Non-Af Amer) 106.0 ml/min BUN/Creatinine Ratio 8.6 L (10-20) Glucose 101 H (70-99) mg/dl Calcium 9.0 (8.5-10.1) mg/dl Phosphorus 3.8 (2.5-4.9) mg/dl Magnesium 2.1 (1.8-2.4) mg/dl Total Bilirubin 0.4 (0.2-1) mg/dl AST 130 H (15-37) U/L ALT 131 H (12-78) Alkaline Phosphatase 91 (45-117) U/L Total Protein 8.0 (6.4-8.2) gm/dl Albumin 3.9 (3.4-5.0) gm/dl Globulin 4.1 H (2.5-4.0) gm/dl Albumin/Globulin Ratio 1.0 (0.9-2) Lipase 116 (73-393) U/L Urine Color Urine Appearance (Clear) Urine pH (4.5-7.5) Ur Specific [place] (1.000-1.030) Urine Protein (Negative) Urine Glucose (UA) (Negative) Urine Ketones (Negative) Urine Blood (Negative) Urine Nitrite (Negative) Urine Bilirubin (Negative) Urine Urobilinogen (Negative) Ur Leukocyte Esterase (Negative) Urine WBC (Auto) (0-5) /hpf Urine RBC (Auto) (0-4) /hpf U Hyaline Cast (Auto) (0-5) /lpf U Epithel Cells (Auto) (0-5) /lpf Urine Bacteria (Auto) (Negative) POC Ur Test (NEG) Salicylates (2.8-20) mg/dl Urine Opiates Screen (Neg) Ur Methadone, Qual (Neg) Acetaminophen (10-30) ug/ml Urine Barbiturates (Neg) Ur Phencyclidine (PCP) (Neg) U Amphetamin/Meth Scrn (Neg) MDMA (Ecstasy) Screen (Neg) U Benzodiazepines Scrn (Neg) Ur Cocaine Metabolite (Neg) U Marijuana (THC) Screen (Neg) Ethyl Alcohol mg/dL (0-3) mg/dl Hepatitis A IgM Ab (NON-REACTIVE) Hep Bs Antigen (Neg) Hep B Core IgM Ab (NON-REACTIVE) Hepatitis C Antibody (Neg) SARS-CoV-2, RNA, NAAT (NEGATIVE) 05/30/21 05/30/21 05/30/21 Range/Units 15:33 15:33 16:31 WBC (4.8-10.8) K/uL RBC (4.2-5.4) M/uL Hgb (12.0-16.0) g/dL Hct (37-47) % MCV (80-100) fL MCH (25-34) pg MCHC (32-36) g/dL RDW Std Deviation (36.4-46.3) fL RDW Coeff of Sotero (11.5-14.5) % Plt Count (130-400) K/uL MPV (7.4-10.4) fL Immature Gran % (Auto) % Neut % (Auto) % Lymph % (Auto) % Grainger % (Auto) % Eos % (Auto) % Baso % (Auto) % Neut # (Auto) (1.4-6.5) K/uL Lymph # (Auto) (1.2-3.4) K/uL Grainger # (Auto) (0.11-0.59) K/uL Eos # (Auto) (0-0.5) K/uL Baso # (Auto) (0-0.2) K/uL Immature Gran # (Auto) (0.00-0.02) K/uL Sodium (136-145) mmol/L Potassium (3.5-5.1) mmol/L Chloride (98-107) mmol/L Carbon Dioxide (21-32) mmol/L Anion Gap (3-11) BUN (7-18) mg/dl Creatinine (0.6-1.2) mg/dl Est Cr Clr Drug Dosing Est GFR ( Amer) ml/min Est GFR (Non-Af Amer) ml/min BUN/Creatinine Ratio (10-20) Glucose (70-99) mg/dl Calcium (8.5-10.1) mg/dl Phosphorus (2.5-4.9) mg/dl Magnesium (1.8-2.4) mg/dl Total Bilirubin (0.2-1) mg/dl AST (15-37) U/L ALT (12-78) Alkaline Phosphatase (45-117) U/L Total Protein (6.4-8.2) gm/dl Albumin (3.4-5.0) gm/dl Globulin (2.5-4.0) gm/dl Albumin/Globulin Ratio (0.9-2) Lipase (73-393) U/L Urine Color Urine Appearance (Clear) Urine pH (4.5-7.5) Ur Specific [place] (1.000-1.030) Urine Protein (Negative) Urine Glucose (UA) (Negative) Urine Ketones (Negative) Urine Blood (Negative) Urine Nitrite (Negative) Urine Bilirubin (Negative) Urine Urobilinogen (Negative) Ur Leukocyte Esterase (Negative) Urine WBC (Auto) (0-5) /hpf Urine RBC (Auto) (0-4) /hpf U Hyaline Cast (Auto) (0-5) /lpf U Epithel Cells (Auto) (0-5) /lpf Urine Bacteria (Auto) (Negative) POC Ur Test (NEG) Salicylates (2.8-20) mg/dl Urine Opiates Screen (Neg) Ur Methadone, Qual (Neg) Acetaminophen (10-30) ug/ml Urine Barbiturates (Neg) Ur Phencyclidine (PCP) (Neg) U Amphetamin/Meth Scrn (Neg) MDMA (Ecstasy) Screen (Neg) U Benzodiazepines Scrn (Neg) Ur Cocaine Metabolite (Neg) U Marijuana (THC) Screen (Neg) Ethyl Alcohol mg/dL 241.8 H (0-3) mg/dl Hepatitis A IgM Ab NON-REACTIVE (NON-REACTIVE) Hep Bs Antigen Neg (Neg) Hep B Core IgM Ab NON-REACTIVE (NON-REACTIVE) Hepatitis C Antibody Neg (Neg) SARS-CoV-2, RNA, NAAT (NEGATIVE) 05/30/21 05/30/21 05/30/21 Range/Units 16:31 18:11 18:11 WBC (4.8-10.8) K/uL RBC (4.2-5.4) M/uL Hgb (12.0-16.0) g/dL Hct (37-47) % MCV (80-100) fL MCH (25-34) pg MCHC (32-36) g/dL RDW Std Deviation (36.4-46.3) fL RDW Coeff of Sotero (11.5-14.5) % Plt Count (130-400) K/uL MPV (7.4-10.4) fL Immature Gran % (Auto) % Neut % (Auto) % Lymph % (Auto) % Grainger % (Auto) % Eos % (Auto) % Baso % (Auto) % Neut # (Auto) (1.4-6.5) K/uL Lymph # (Auto) (1.2-3.4) K/uL [place]inger # (Auto) (0.11-0.59) K/uL Eos # (Auto) (0-0.5) K/uL Baso # (Auto) (0-0.2) K/uL Immature Gran # (Auto) (0.00-0.02) K/uL Sodium (136-145) mmol/L Potassium (3.5-5.1) mmol/L Chloride (98-107) mmol/L Carbon Dioxide (21-32) mmol/L Anion Gap (3-11) BUN (7-18) mg/dl Creatinine (0.6-1.2) mg/dl Est Cr Clr Drug Dosing Est GFR ( Amer) ml/min Est GFR (Non-Af Amer) ml/min BUN/Creatinine Ratio (10-20) Glucose (70-99) mg/dl Calcium (8.5-10.1) mg/dl Phosphorus (2.5-4.9) mg/dl Magnesium (1.8-2.4) mg/dl Total Bilirubin (0.2-1) mg/dl AST (15-37) U/L ALT (12-78) Alkaline Phosphatase (45-117) U/L Total Protein (6.4-8.2) gm/dl Albumin (3.4-5.0) gm/dl Globulin (2.5-4.0) gm/dl Albumin/Globulin Ratio (0.9-2) Lipase (73-393) U/L Urine Color Yellow Urine Appearance Clear (Clear) Urine pH 5.5 (4.5-7.5) Ur Specific [place] 1.017 (1.000-1.030) Urine Protein Trace H (Negative) Urine Glucose (UA) Negative (Negative) Urine Ketones 2+ H (Negative) Urine Blood Negative (Negative) Urine Nitrite Negative (Negative) Urine Bilirubin Negative (Negative) Urine Urobilinogen Negative (Negative) Ur Leukocyte Esterase Negative (Negative) Urine WBC (Auto) 1-5 (0-5) /hpf Urine RBC (Auto) 0-4 (0-4) /hpf U Hyaline Cast (Auto) 10-30 H (0-5) /lpf U Epithel Cells (Auto) >30 H (0-5) /lpf Urine Bacteria (Auto) 1+ H (Negative) POC Ur Test (NEG) Salicylates < 1.7 L (2.8-20) mg/dl Urine Opiates Screen Neg (Neg) Ur Methadone, Qual Neg (Neg) Acetaminophen < 2 L (10-30) ug/ml Urine Barbiturates Neg (Neg) Ur Phencyclidine (PCP) Neg (Neg) U Amphetamin/Meth Scrn Neg (Neg) MDMA (Ecstasy) Screen Neg (Neg) U Benzodiazepines Scrn Pos H (Neg) Ur Cocaine Metabolite Neg (Neg) U Marijuana (THC) Screen Neg (Neg) Ethyl Alcohol mg/dL (0-3) mg/dl Hepatitis A IgM Ab (NON-REACTIVE) Hep Bs Antigen (Neg) Hep B Core IgM Ab (NON-REACTIVE) Hepatitis C Antibody (Neg) SARS-CoV-2, RNA, NAAT (NEGATIVE) 05/30/21 05/30/21 Range/Units Unknown Unknown WBC (4.8-10.8) K/uL RBC (4.2-5.4) M/uL Hgb (12.0-16.0) g/dL Hct (37-47) % MCV (80-100) fL MCH (25-34) pg MCHC (32-36) g/dL RDW Std Deviation (36.4-46.3) fL RDW Coeff of Sotero (11.5-14.5) % Plt Count (130-400) K/uL MPV (7.4-10.4) fL Immature Gran % (Auto) % Neut % (Auto) % Lymph % (Auto) % [place]inger % (Auto) % Eos % (Auto) % Baso % (Auto) % Neut # (Auto) (1.4-6.5) K/uL Lymph # (Auto) (1.2-3.4) K/uL [place] # (Auto) (0.11-0.59) K/uL Eos # (Auto) (0-0.5) K/uL Baso # (Auto) (0-0.2) K/uL Immature Gran # (Auto) (0.00-0.02) K/uL Sodium (136-145) mmol/L Potassium (3.5-5.1) mmol/L Chloride (98-107) mmol/L Carbon Dioxide (21-32) mmol/L Anion Gap (3-11) BUN (7-18) mg/dl Creatinine (0.6-1.2) mg/dl Est Cr Clr Drug Dosing Est GFR ( Amer) ml/min Est GFR (Non-Af Amer) ml/min BUN/Creatinine Ratio (10-20) Glucose (70-99) mg/dl Calcium (8.5-10.1) mg/dl Phosphorus (2.5-4.9) mg/dl Magnesium (1.8-2.4) mg/dl Total Bilirubin (0.2-1) mg/dl AST (15-37) U/L ALT (12-78) Alkaline Phosphatase (45-117) U/L Total Protein (6.4-8.2) gm/dl Albumin (3.4-5.0) gm/dl Globulin (2.5-4.0) gm/dl Albumin/Globulin Ratio (0.9-2) Lipase (73-393) U/L Urine Color Urine Appearance (Clear) Urine pH (4.5-7.5) Ur Specific [place] (1.000-1.030) Urine Protein (Negative) Urine Glucose (UA) (Negative) Urine Ketones (Negative) Urine Blood (Negative) Urine Nitrite (Negative) Urine Bilirubin (Negative) Urine Urobilinogen (Negative) Ur Leukocyte Esterase (Negative) Urine WBC (Auto) (0-5) /hpf Urine RBC (Auto) (0-4) /hpf U Hyaline Cast (Auto) (0-5) /lpf U Epithel Cells (Auto) (0-5) /lpf Urine Bacteria (Auto) (Negative) POC Ur Test NEG (NEG) Salicylates (2.8-20) mg/dl Urine Opiates Screen (Neg) Ur Methadone, Qual (Neg) Acetaminophen (10-30) ug/ml Urine Barbiturates (Neg) Ur Phencyclidine (PCP) (Neg) U Amphetamin/Meth Scrn (Neg) MDMA (Ecstasy) Screen (Neg) U Benzodiazepines Scrn (Neg) Ur Cocaine Metabolite (Neg) U Marijuana (THC) Screen (Neg) Ethyl Alcohol mg/dL (0-3) mg/dl Hepatitis A IgM Ab (NON-REACTIVE) Hep Bs Antigen (Neg) Hep B Core IgM Ab (NON-REACTIVE) Hepatitis C Antibody (Neg) SARS-CoV-2, RNA, NAAT NEGATIVE (NEGATIVE) Administered Medications Calcium Carbonate (Calcium Carbonate 500 Mg Chewable Tab) 500 mg PO Q4 PRN PRN Reason: Indigestion Stop: 06/30/21 09:26 Last Admin: 06/03/21 08:16 Dose: 500 mg Documented by: [id number] Admin: 06/01/21 08:15 Dose: 500 mg Documented by: [id number] Admin: 05/31/21 09:36 Dose: 500 mg Documented by: [id number] Chlordiazepoxide HCl (Chlordiazepoxide Hcl 25 Mg Cap) 25 mg PO Q8H BRIANDA; Taper Stop: 06/04/21 11:59 Last Admin: 06/04/21 03:49 Dose: 25 mg Documented by: [id number] Admin: 06/03/21 20:34 Dose: 25 mg Documented by: [id number] Admin: 06/03/21 12:11 Dose: 25 mg Documented by: [id number] Admin: 06/03/21 03:58 Dose: 50 mg Documented by: [id number] Admin: 06/02/21 19:35 Dose: 50 mg Documented by: [id number] Admin: 06/02/21 12:09 Dose: 50 mg Documented by: [id number] Admin: 06/02/21 05:46 Dose: 50 mg Documented by: [id number] Admin: 06/02/21 00:08 Dose: 50 mg Documented by: [id number] Admin: 06/01/21 18:26 Dose: 50 mg Documented by: [id number] Admin: 06/01/21 12:27 Dose: 50 mg Documented by: [id number] Clonidine HCl (Clonidine Hcl 0.1 Mg Tab) 0.2 mg PO BID BRIANDA Stop: 06/30/21 08:59 Last Admin: 06/04/21 07:52 Dose: 0.2 mg Documented by: [id number] Admin: 06/03/21 20:38 Dose: 0.2 mg Documented by: [id number] Admin: 06/03/21 08:08 Dose: 0.2 mg Documented by: [id number] Admin: 06/02/21 20:56 Dose: 0.2 mg Documented by: [id number] Admin: 06/02/21 08:24 Dose: 0.2 mg Documented by: [id number] Admin: 06/01/21 20:08 Dose: 0.2 mg Documented by: [id number] Admin: 06/01/21 08:11 Dose: 0.2 mg Documented by: [id number] Admin: 05/31/21 20:42 Dose: 0.2 mg Documented by: [id number] Admin: 05/31/21 08:34 Dose: 0.2 mg Documented by: [id number] Escitalopram Oxalate (Escitalopram Oxalate 20 Mg Tab) 20 mg PO QAM BRIANDA Stop: 06/30/21 09:29 Last Admin: 06/04/21 07:47 Dose: 20 mg Documented by: [id number] Admin: 06/03/21 08:09 Dose: 20 mg Documented by: [id number] Admin: 06/02/21 08:24 Dose: 20 mg Documented by: [id number] Admin: 06/01/21 08:11 Dose: 20 mg Documented by: [id number] Admin: 05/31/21 09:36 Dose: 20 mg Documented by: [id number] Famotidine (Famotidine 20 Mg Tab) 20 mg PO BID BRIANDA Stop: 07/03/21 08:59 Last Admin: 06/04/21 07:49 Dose: Not Given Documented by: [id number] Admin: 06/03/21 20:35 Dose: 20 mg Documented by: [id number] Admin: 06/03/21 08:11 Dose: Not Given Documented by: [id number] Folic Acid (Folic Acid 1 Mg Tab) 1 mg PO QAM BRIANDA Stop: 06/30/21 08:59 Last Admin: 06/04/21 07:47 Dose: 1 mg Documented by: [id number] Admin: 06/03/21 08:09 Dose: 1 mg Documented by: [id number] Admin: 06/02/21 08:25 Dose: 1 mg Documented by: [id number] Admin: 06/01/21 08:11 Dose: 1 mg Documented by: [id number] Admin: 05/31/21 08:34 Dose: 1 mg Documented by: [id number] Gabapentin (Gabapentin 600 Mg Tab) 600 mg PO BID BRIANDA Stop: 06/30/21 01:23 Last Admin: 06/04/21 07:47 Dose: 600 mg Documented by: [id number] Admin: 06/03/21 20:36 Dose: 600 mg Documented by: [id number] Admin: 06/03/21 08:09 Dose: 600 mg Documented by: [id number] Admin: 06/02/21 20:57 Dose: 600 mg Documented by: [id number] Admin: 06/02/21 08:25 Dose: 600 mg Documented by: [id number] Admin: 06/01/21 20:08 Dose: 600 mg Documented by: [id number] Admin: 06/01/21 08:11 Dose: 600 mg Documented by: [id number] Admin: 05/31/21 20:42 Dose: 600 mg Documented by: [id number] Admin: 05/31/21 08:34 Dose: 600 mg Documented by: [id number] Admin: 05/31/21 01:41 Dose: 600 mg Documented by: [id number] Hydroxyzine HCl (Hydroxyzine Hcl 25 Mg Tab) 25 mg PO Q4 PRN PRN Reason: restlessness/anxiety Stop: 06/30/21 09:26 Last Admin: 06/04/21 02:30 Dose: 25 mg Documented by: [id number] Admin: 06/03/21 12:20 Dose: 25 mg Documented by: [id number] Admin: 06/03/21 04:50 Dose: 25 mg Documented by: [id number] Admin: 06/03/21 00:59 Dose: 25 mg Documented by: [id number] Admin: 06/02/21 18:22 Dose: 25 mg Documented by: [id number] Admin: 06/02/21 13:39 Dose: 25 mg Documented by: [id number] Admin: 06/02/21 06:29 Dose: 25 mg Documented by: [id number] Admin: 06/02/21 00:15 Dose: 25 mg Documented by: [id number] Admin: 05/31/21 21:36 Dose: 25 mg Documented by: [id number] Admin: 05/31/21 17:50 Dose: 25 mg Documented by: [id number] Lorazepam (Ativan) 1 mg in 2 mls @ 2 mls/min IV UD PRN; Protocol PRN Reason: EtOH Withdrawl AWSS Score 6,7 Stop: 06/30/21 01:23 Last Admin: 06/03/21 20:43 Dose: 2 mls/min Documented by: [id number] Admin: 06/03/21 16:04 Dose: 2 mls/min Documented by: [id number] Admin: 06/03/21 06:15 Dose: 2 mls/min Documented by: [id number] Admin: 06/03/21 00:59 Dose: 2 mls/min Documented by: [id number] Admin: 06/02/21 19:34 Dose: 2 mls/min Documented by: [id number] Admin: 06/01/21 21:02 Dose: 2 mls/min Documented by: [id number] Admin: 06/01/21 18:27 Dose: 2 mls/min Documented by: [id number] Admin: 06/01/21 16:24 Dose: 2 mls/min Documented by: [id number] Admin: 05/31/21 17:50 Dose: 2 mls/min Documented by: [id number] Lorazepam (Ativan) 2 mg in 4 mls @ 4 mls/min IV UD PRN; Protocol PRN Reason: EtOH Withdrawl AWSS Score 8,9 Stop: 06/30/21 01:23 Last Admin: 06/04/21 07:41 Dose: 4 mls/min Documented by: [id number] Admin: 06/02/21 15:37 Dose: 4 mls/min Documented by: [id number] Admin: 06/02/21 07:41 Dose: 4 mls/min Documented by: [id number] Admin: 06/01/21 15:25 Dose: 4 mls/min Documented by: [id number] Admin: 05/31/21 21:36 Dose: 4 mls/min Documented by: [id number] Admin: 05/31/21 19:19 Dose: 4 mls/min Documented by: [id number] Admin: 05/31/21 08:34 Dose: 4 mls/min Documented by: [id number] Admin: 05/31/21 06:32 Dose: 4 mls/min Documented by: [id number] Admin: 05/31/21 05:29 Dose: 4 mls/min Documented by: [id number] Admin: 05/31/21 01:30 Dose: 4 mls/min Documented by: [id number] Lorazepam (Ativan) 3 mg in 6 mls @ 4 mls/min IV ONCE PRN; Protocol PRN Reason: EtOH Withdrawl AWSS Score >=10 Stop: 06/30/21 01:23 Last Admin: 06/02/21 02:30 Dose: 4 mls/min Documented by: [id number] Admin: 05/31/21 16:47 Dose: 4 mls/min Documented by: [id number] Admin: 05/31/21 13:05 Dose: 4 mls/min Documented by: [id number] Ibuprofen (Ibuprofen 600 Mg Tab) 600 mg PO Q6H PRN PRN Reason: pain Stop: 07/01/21 10:21 Last Admin: 06/03/21 04:50 Dose: 600 mg Documented by: [id number] Loperamide HCl (Loperamide Hcl 2 Mg Cap) 2 mg PO Q6 PRN PRN Reason: diarrhea Stop: 07/01/21 10:21 Last Admin: 06/01/21 15:46 Dose: 2 mg Documented by: [id number] Mirtazapine (Mirtazapine Tab 15 Mg Tab) 15 mg PO HS PRN PRN Reason: Sleep Stop: 06/30/21 01:23 Last Admin: 06/03/21 21:11 Dose: 15 mg Documented by: [id number] Admin: 06/02/21 21:06 Dose: 15 mg Documented by: [id number] Admin: 06/01/21 20:16 Dose: 15 mg Documented by: [id number] Ondansetron HCl (Ondansetron Inj 2 Mg/Ml 2 Ml Vial) 4 mg IV Q6H PRN PRN Reason: Nausea Stop: 06/30/21 01:23 Last Admin: 06/03/21 12:19 Dose: 4 mg Documented by: [id number] Admin: 06/02/21 07:41 Dose: 4 mg Documented by: [id number] Pantoprazole Sodium (Pantoprazole 40 Mg Tab) 40 mg PO BID [facility] Stop: 06/30/21 20:59 Last Admin: 06/04/21 07:48 Dose: 40 mg Documented by: [id number] Admin: 06/03/21 20:34 Dose: 40 mg Documented by: [id number] Admin: 06/03/21 08:09 Dose: 40 mg Documented by: [id number] Admin: 06/02/21 20:57 Dose: 40 mg Documented by: [id number] Admin: 06/02/21 08:25 Dose: 40 mg Documented by: [id number] Admin: 06/01/21 20:09 Dose: 40 mg Documented by: [id number] Admin: 06/01/21 08:12 Dose: 40 mg Documented by: [id number] Admin: 05/31/21 20:42 Dose: 40 mg Documented by: [id number] Thiamine HCl (Thiamine Hcl 100 Mg Tab) 100 mg PO QAM [facility] Stop: 06/30/21 08:59 Last Admin: 06/04/21 07:48 Dose: 100 mg Documented by: [id number] Admin: 06/03/21 08:09 Dose: 100 mg Documented by: [id number] Admin: 06/02/21 08:24 Dose: 100 mg Documented by: [id number] Admin: 06/01/21 08:12 Dose: 100 mg Documented by: [id number] Admin: 05/31/21 08:34 Dose: 100 mg Documented by: [id number] Discontinued Medications Diphenhydramine HCl (Diphenhydramine Capsule 25 Mg Cap) 25 mg PO NOW ONE Stop: 05/30/21 20:30 Last Admin: 05/30/21 20:45 Dose: 25 mg Documented by: [id number] Famotidine (Famotidine 20mg/5ml Iv Push) 20 mg IV 0030 [facility] Stop: 05/31/21 00:31 Last Admin: 05/31/21 00:41 Dose: 20 mg Documented by: [id number] Famotidine (Famotidine 20mg/5ml Iv Push) Confirm Administered Dose 20 mg IV .[employer]-MED ONE Stop: 05/31/21 08:31 Last Admin: 05/31/21 08:42 Dose: Not Given Documented by: [id number] Famotidine (Famotidine 20mg/5ml Iv Push) Confirm Administered Dose 20 mg IV .[employer]-MED ONE Stop: 06/01/21 08:05 Last Admin: 06/01/21 11:06 Dose: Not Given Documented by: [id number] Hydralazine HCl (Hydralazine Hcl 20 Mg/Ml Vial) 10 mg IV NOW [facility] Stop: 06/01/21 18:37 Last Admin: 06/01/21 18:43 Dose: 10 mg Documented by: [id number] Hydralazine HCl (Hydralazine Hcl 20 Mg/Ml Vial) Confirm Administered Dose 20 mg .ROUTE .[place]-MED ONE Stop: 06/01/21 18:43 Last Admin: 06/01/21 18:43 Dose: Not Given Documented by: [id number] Hydroxyzine HCl (Hydroxyzine Hcl 25 Mg Tab) 25 mg PO QID PRN PRN Reason: restlessness/anxiety Stop: 06/30/21 09:26 Last Admin: 05/31/21 09:36 Dose: 25 mg Documented by: [id number] Hydroxyzine HCl (Hydroxyzine Hcl 25 Mg Tab) Confirm Administered Dose 25 mg .ROUTE .[employer]-MED ONE Stop: 05/31/21 13:25 Last Admin: 05/31/21 13:27 Dose: 25 mg Documented by: [id number] Sodium Chloride (Nss 1000ml) 2,000 mls @ 999 mls/hr IV .Q2H1M BRIANDA Stop: 05/30/21 18:30 Last Infusion: 05/30/21 18:53 Dose: 0 mls/hr Documented by: [id number] Admin: 05/30/21 16:54 Dose: 999 mls/hr Documented by: [id number] Lorazepam (Ativan) 2 mg in 4 mls @ 4 mls/min IV NOW STA Stop: 05/30/21 23:50 Last Admin: 05/30/21 23:59 Dose: 4 mls/min Documented by: [id number] Multivitamins 10 ml/ Thiamine HCl 100 mg/ Folic Acid 1 mg/Sodium Chloride 1,011.2 mls @ 1,011.2 mls/hr IV .Q1H ONE Stop: 05/31/21 00:50 Last Infusion: 05/31/21 00:44 Dose: 0 mls/hr Documented by: [id number] Admin: 05/31/21 00:17 Dose: 1,011.2 mls/hr Documented by: [id number] Thiamine HCl 200 mg/ Sodium (Chloride) 52 mls @ 208 mls/hr IV NOW STA Stop: 05/30/21 23:53 Last Infusion: 05/31/21 00:44 Dose: 0 mls/hr Documented by: [id number] Admin: 05/31/21 00:17 Dose: 208 mls/hr Documented by: [id number] Famotidine 20 mg/ Syringe 5 mls @ 2.5 mls/min IV Q12 [facility] Stop: 06/30/21 08:59 Last Admin: 06/02/21 20:57 Dose: Not Given Documented by: [id number] Admin: 06/02/21 08:25 Dose: Not Given Documented by: [id number] Admin: 06/01/21 20:08 Dose: Not Given Documented by: [id number] Admin: 06/01/21 08:11 Dose: Not Given Documented by: [id number] Admin: 05/31/21 20:42 Dose: 2.5 mls/min Documented by: [id number] Admin: 05/31/21 08:42 Dose: Not Given Documented by: [id number] Phenobarbital Sodium 130 mg/ (Syringe) 2 mls @ 0.923 mls/min IV ONE ONE Stop: 05/31/21 16:42 Last Admin: 05/31/21 16:54 Dose: 0.923 mls/min Documented by: [id number] Lorazepam (Lorazepam 1 Mg Tab) 1 mg SL NOW STA Stop: 05/30/21 21:05 Last Admin: 05/30/21 21:16 Dose: 1 mg Documented by: [id number] Lorazepam (Lorazepam 1 Mg Tab) 1 mg SL NOW STA Stop: 05/30/21 22:55 Last Admin: 05/30/21 22:57 Dose: 1 mg Documented by: [id number] Mirtazapine (Mirtazapine Tab 15 Mg Tab) 7.5 mg PO HS PRN PRN Reason: Sleep Stop: 06/30/21 01:23 Last Admin: 06/01/21 00:34 Dose: 7.5 mg Documented by: [id number] Ondansetron HCl (Ondansetron Inj 2 Mg/Ml 2 Ml Vial) 4 mg IV NOW STA Stop: 05/30/21 16:21 Last Admin: 05/30/21 16:53 Dose: 4 mg Documented by: [id number] Potassium Chloride (Potassium Chloride Crtab 20 Meq Tabcr) 40 meq PO NOW STA Stop: 06/02/21 20:03 Last Admin: 06/02/21 20:56 Dose: 40 meq Documented by: [id number] Blood Pressure Blood Pressure Findings: Elevated blood pressure Blood Pressure Disposition: elevated BP felt to be situational Discharge Plan Visit Data Chief Complaint: Illness Stated Complaint: Vomiting ED Provider: Travon Connolly Discharge Problem: Suicidal ideation, Polypharmacy, Alcohol intoxication Patient Disposition: Admitted As Inpatient Discharge Instructions Interventions: ED Discharge Assessment Last Done: 05/31/21 01:48
[2021-05-30 18:46] LABS: Amphetamines+Metham, Urine Neg (Neg); Barbiturates, Urine Neg (Neg); Benzodiazepine, Urine Pos (Neg); Cocaine, Urine Neg (Neg); MDMA (Ecstacy), Urine Neg (Neg); Methadone, Urine Neg (Neg); Opiate, Urine Neg (Neg); Phencyclidine, Urine Neg (Neg)
--- NOTE | 2021-05-30 19:59 | Emergency Department Note ---
ED Visit Note The patient was taken in signout from Dr. Serrano at change of shift. Please see her note for details of the patient's presentation. In brief the patient is a 35-year-old woman with a past medical history of mood disorder/personality disorder and polysubstance abuse who presents emergency department for evaluation where she initially reported that she was "withdrawing" from not taking her medications because she was feeling sick with a GI illness but was able to drink alcohol. She made suicidal statements to behaviour support teacher. Per report the patient took a whole bottle of Diclazepam (4mg/ml, 30ml bottle) which he obtained online and is not a prescribed medication. The patient also takes Kratom daily and was drinking alcohol today where she reports she only had 2 half beers but her blood alcohol was 240 at 1630. Thus, the patient is awaiting clinical sobriety to complete psychiatric evaluation. Given the patient's suicidal statements which she made repeatedly a 302 petition filed however disposition of 302 petition was pending medical clearance. The patient was observed in the emergency department subsequently and was exhibiting recurring agitation, restlessness and tremulousness. She was initially given Benadryl which briefly helped however upon my evaluation of the bedside the patient was exhibiting severe tremulousness and so was given Ativan with good effect. However she would require repeat dosing. Upon evaluation again at the estimated time for clinical sobriety the patient continued to remain restless, anxious and tremulous. Thus, it was suspected that the patient's current symptoms are due to alcohol/benzodiazepine withdrawal in the setting of polysubstance abuse. The patient initially expressed that she did not want to be admitted. However I did explain to her the concerns for her safety that have been raised given her repeated suicidal statements. She did attempt to minimize this at this point however given her active withdrawal syndrome she did not exhibit sufficient insight or capacity to determine the patient's mental health state. When this was explained to her she did agree to proceed with medical admission until she is able to be medically cleared to finalize her mental health evaluation. The patient was given additional IV Ativan as well as banana bag and thiamine. Case was discussed with Dr. Alonso, [facility] hospitalist, who will evaluate the patient for admission. .
[2021-05-30] MEDS ORDERED: diphenhydrAMINE Capsule 25 MG CAP PO ONE (20:29)
[2021-05-30] MEDS ORDERED: LORazepam 1 MG TAB SL STA ×2 (21:04→22:54)
--- NOTE | 2021-05-30 22:19 | XRay Report ---
XR chest 1V portable CLINICAL HISTORY: Chest pain. COMPARISON STUDY: No previous studies for comparison. TECHNIQUE: 1 view of the chest FINDINGS: Single frontal view of the chest demonstrates the cardiomediastinal silhouette to be within normal li mits. The lungs are clear of alveolar opacities. There is no evidence for pleural effusion. There is no evidence for vascular congestion. There is no acute osseous pathology. IMPRESSION: No acute cardiopulmonary disease. ACT 112: Negative or not required by law. Electronically signed by: Enrique Simeon M.D. 05/30/2021 10:18 PM
[2021-05-30] MEDS ORDERED: LORazepam 1 MG TAB PO PRN (22:54)
[2021-05-30] MEDS ORDERED: LORazepam 2 MG/4 ML VIAL IV STA (23:49)
[2021-05-30] MEDS ORDERED: LORazepam 1 MG/2 ML VIAL IV PRN (23:49)
[2021-05-30] MEDS ORDERED: MULTI-VITAMIN INFUSION 10 ML, THIAMINE HCL 100 MG, FOLIC ACID 1 MG in SODIUM CHLORIDE 0... IV ONE (23:51)
[2021-05-30] MEDS ORDERED: THIAMINE HCL 200 MG in SODIUM CHLORIDE 0.9% 50 ML IV STA (23:52)
--- NOTE | 2021-05-31 00:20 | History & Physical Report ---
Date of Service May 31, 2021 Assessment & Plan (1) Polysubstance abuse: Plan: Polysubstance abuse/alcohol and benzodiazepine withdrawal- Admit to monitored bed AWSS protocol with IV lorazepam Continue clonidine, gabapentin, mirtazapine Place on thiamine 100 mg every morning and folic acid 1 mg every morning Status post 1 L normal saline from the ED Received multiple doses of SL lorazepam from the ED and thiamine 200 mg IV Consult psychiatry (2) Alcohol withdrawal: Plan: See above (3) Benzodiazepine withdrawal: Plan: See above (4) Abnormal LFTs: Plan: AST 130, ALT 131 with no previous for comparison Check acute hepatitis profile Follow serially History of Present Illness Chief Complaint: The patient presents to the emergency department with symptoms of drug withdrawal, including vomiting, diarrhea, shakes and having missed doses of her Valium and Lexapro. Patient reports that she began to drink alcohol and used kratom, which he purchased online, to help deal with withdrawal symptoms, along with an [id number] benzodiazepine bought online. She also has received IM ketamine from a headache clinic that she goes to in [place]. The patient has no PCP in the area. Her HPI and ROS should not be considered very reliable Primary Care Provider: NO PCP Allergies Allergy/AdvReac Type Severity Reaction Status Date / Time latex Allergy Severe Anaphylaxis, Verified 05/30/21 17:01 throat swells MANY FOOD ALLERGIES Allergy Severe Anaphylaxis Uncoded 05/30/21 17:01 Home Medications Medication Instructions Recorded Confirmed Type Diclazepam 0 mg PO DIRECTED 05/30/21 05/30/21 History Kratom 1 dose PO DIRECTED 05/30/21 05/30/21 History baclofen 10 mg tablet 10 mg PO TID PRN 05/30/21 05/30/21 History clonidine HCl 0.2 mg tablet 0.2 mg PO BID 05/30/21 05/30/21 History escitalopram oxalate 20 mg tablet 2 mg PO DAILY 05/30/21 05/30/21 History gabapentin 600 mg tablet 600 mg PO BID 05/30/21 05/30/21 History hydroxyzine HCl 25 mg tablet 25 mg PO HS 05/30/21 05/30/21 History ketamine 10 mg/mL injection 0 mg IM DIRECTED 05/30/21 05/30/21 History solution mirtazapine 7.5 mg tablet 7.5 mg PO HS PRN 05/30/21 05/30/21 History ondansetron 4 mg disintegrating 4 mg PO BID PRN 05/30/21 05/30/21 History tablet propranolol 20 mg tablet 20 mg PO DAILY PRN 05/30/21 05/30/21 History Past Med/Surg History Social History Smoking Status: Never smoker Feels Safe at Home: Yes Review of Systems Review of Systems: Patient reports that she feels awful but does not elaborate much beyond that of than to say she has generalized pain, has an upset stomach and feels nauseous Physical Exam Physical Exam: The patient is awake, alert and oriented 3, well developed and well nourished, normocephalic and atraumatic, lying in bed and in no acute distress. HEENT--PERRL, EOMI, mucous membranes and oropharynx mildly dry. Neck--supple. No JVD. No bruits. Thyroid normal, trachea midline, no adenopathy. Heart--normal S1 and S2. No murmurs, rubs or gallops. Lungs--clear bilaterally, no respiratory distress, no accessory muscle use. Abdomen--normal bowel sounds and soft. Nontender. Nondistended, no hernias or masses, no organomegaly. Extremities--no cyanosis or clubbing. No edema. Dermatologic--normal skin turgor, normal color, no abnormal lymph nodes, no rash. Neurologic--cranial nerves II through XII grossly intact. Rheumatologic--normal range of motion. Psychiatric--anxious and jittery. Results & Data Results & Data ([facility]) Vital Signs (Past 12 Hours) Vital Signs Temp Pulse Pulse Resp BP Pulse Ox 05/31/21 00:07 99 H 22 97 05/30/21 22:00 90 20 147/100 H 96 05/30/21 20:26 37.8 C H 97 H 18 139/94 96 05/30/21 18:16 93 H 18 137/87 98 05/30/21 16:20 98 H 94 H 17 111/94 95 05/30/21 15:21 36.7 C 110 H 20 97 Laboratory Results Laboratory Results WBC 5.21 K/uL (4.8-10.8) 05/30/21 15:33 RBC 4.81 M/uL (4.2-5.4) 05/30/21 15:33 Hgb 15.9 g/dL (12.0-16.0) 05/30/21 15:33 Hct 46.3 % (37-47) 05/30/21 15: MCV 96.3 fL (80-100) 05/30/21 15: MCH 33.1 pg (25-34) 05/30/21: MCHC 34.3 g/dL (32-36) 05/30/21 15: RDW Std Deviation 52.9 fL (36.4-46.3) H 05/30/21 15: RDW Coeff of [place]otero 14.9 % (11.5-14.5) H 05/30/21: Plt Count 235 K/uL (130-400) 05/30/21: MPV 8.7 fL (7.4-10.4) 05/30/21 15: Immature Gran % (Auto) 0.0 % 05/30/21: Neut % (Auto) 67.2 % 05/30/21 15:33 Lymph % (Auto) 25.5 % 05/30/21 15:33 [place] % (Auto) 5.2 % 05/30/21 15:33 Eos % (Auto) 1.9 % 05/30/21: Baso % (Auto) 0.2 % 05/30/21: Neut # (Auto) 3.50 K/uL (1.4-6.5) 05/30/21 15: Lymph # (Auto) 1.33 K/uL (1.2-3.4) 05/30/21 15:33 [place] # (Auto) 0.27 K/uL (0.11-0.59) 05/30/21 15:33 Eos # (Auto) 0.10 K/uL (0-0.5) 05/30/21: Baso # (Auto) 0.01 K/uL (0-0.2) 05/30/21: Immature Gran # (Auto) 0.00 K/uL (0.00-0.02) 05/30/21 15:33 Sodium 143 mmol/L (136-145) 05/30/21 15: Potassium 3.7 mmol/L (3.5-5.1) 05/30/21 15:33 Chloride 108 mmol/L (98-107) H 05/30/21 15:33 Carbon Dioxide 24 mmol/L (21-32) 05/30/21 15:33 Anion Gap 11.0 (3-11) 05/30/21 15:33 BUN 6 mg/dl (7-18) L 05/30/21 15:33 Creatinine 0.73 mg/dl (0.6-1.2) 05/30/21 15:33 Est Cr Clr Drug Dosing Not Reportable 05/30/21 15:33 Est GFR ( Amer) 122.8 ml/min 05/30/21 15:33 Est GFR (Non-Af Amer) 106.0 ml/min 05/30/21 15:33 BUN/Creatinine Ratio 8.6 (10-20) L 05/30/21 15:33 Glucose 101 mg/dl (70-99) H 05/30/21 15:33 Calcium 9.0 mg/dl (8.5-10.1) 05/30/21 15:33 Phosphorus 3.8 mg/dl (2.5-4.9) 05/30/21 15:33 Magnesium 2.1 mg/dl (1.8-2.4) 05/30/21 15:33 Total Bilirubin 0.4 mg/dl (0.2-1) 05/30/21 15:33 AST 130 U/L (15-37) H 05/30/21 15:33 ALT 131 (12-78) H 05/30/21 15:33 Alkaline Phosphatase 91 U/L (45-117) 05/30/21 15:33 Total Protein 8.0 gm/dl (6.4-8.2) 05/30/21 15:33 Albumin 3.9 gm/dl (3.4-5.0) 05/30/21 15:33 Globulin 4.1 gm/dl (2.5-4.0) H 05/30/21 15:33 Albumin/Globulin Ratio 1.0 (0.9-2) 05/30/21 15:33 Lipase 116 U/L (73-393) 05/30/21 15:33 Urine Color Yellow 05/30/21 18:11 Urine Appearance Clear (Clear) 05/30/21 18:11 Urine pH 5.5 (4.5-7.5) 05/30/21 18:11 Ur Specific [place] 1.017 (1.000-1.030) 05/30/21 18:11 Urine Protein Trace (Negative) H 05/30/21 18:11 Urine Glucose (UA) Negative (Negative) 05/30/21 18:11 Urine Ketones 2+ (Negative) H 05/30/21 18:11 Urine Blood Negative (Negative) 05/30/21 18:11 Urine Nitrite Negative (Negative) 05/30/21 18:11 Urine Bilirubin Negative (Negative) 05/30/21 18:11 Urine Urobilinogen Negative (Negative) 05/30/21 18:11 Ur Leukocyte Esterase Negative (Negative) 05/30/21 18:11 Urine WBC (Auto) 1-5 /hpf (0-5) 05/30/21 18:11 Urine RBC (Auto) 0-4 /hpf (0-4) 05/30/21 18:11 U Hyaline Cast (Auto) 10-30 /lpf (0-5) H 05/30/21 18:11 U Epithel Cells (Auto) >30 /lpf (0-5) H 05/30/21 18:11 Urine Bacteria (Auto) 1+ (Negative) H 05/30/21 18:11 POC Ur Test NEG (NEG) 05/30/21 Unknown Salicylates < 1.7 mg/dl (2.8-20) L 05/30/21 16:31 Urine Opiates Screen Neg (Neg) 05/30/21 18:11 Ur Methadone, Qual Neg (Neg) 05/30/21 18:11 Acetaminophen < 2 ug/ml (10-30) L 05/30/21 16:31 Urine Barbiturates Neg (Neg) 05/30/21 18:11 Ur Phencyclidine (PCP) Neg (Neg) 05/30/21 18:11 U Amphetamin/Meth Scrn Neg (Neg) 05/30/21 18:11 MDMA (Ecstasy) Screen Neg (Neg) 05/30/21 18:11 U Benzodiazepines Scrn Pos (Neg) H 05/30/21 18:11 Ur Cocaine Metabolite Neg (Neg) 05/30/21 18:11 U Marijuana (THC) Screen Neg (Neg) 05/30/21 18:11 Ethyl Alcohol mg/dL 241.8 mg/dl (0-3) H 05/30/21 16:31 SARS-CoV-2, RNA, NAAT NEGATIVE (NEGATIVE) 05/30/21 Unknown Impressions Chest X-Ray 05/30/21 21:19 XR chest 1V portable CLINICAL HISTORY: Chest pain. COMPARISON STUDY: No previous studies for comparison. TECHNIQUE: 1 view of the chest FINDINGS: Single frontal view of the chest demonstrates the cardiomediastinal silhouette to be within normal limits. The lungs are clear of alveolar opacities. There is no evidence for pleural effusion. There is no evidence for vascular congestion. There is no acute osseous pathology. IMPRESSION: No acute cardiopulmonary disease. ACT 112: Negative or not required by law. Electronically signed by: Enrique Simeon M.D. 05/30/2021 10:18 PM Code Status & VTE Plan Code Status Full code VTE Prophylaxis Plan VTE Prophylaxis will be ordered: Yes PG Care Time/CCT Total # of Minutes Spent Total Time Spent with Patient: Total time spent is greater than 50% in coordination of care (as documented) at patient's floor/unit and/or counseling patient: Coding Level of Care Code 14545 Initial Inpt Care Lvl 3 Diagnoses Polysubstance abuse F19.10 Alcohol withdrawal F10.239 Benzodiazepine withdrawal F13.239 Abnormal LFTs R79.89
[2021-05-31 00:27] LABS: Magnesium 2.1 mg/dl (1.8-2.4); Phosphorus 3.8 mg/dl (2.5-4.9)
[2021-05-31] MEDS ORDERED: FAMOTIDINE 20MG/5ML IV PUSH IV SCH (00:30)
[2021-05-31] MEDS ORDERED: ATIVAN IV ALCOHOL WITHDRAWL IV PRN (01:24)
[2021-05-31] MEDS ORDERED: MIRTAZAPINE TAB 15 MG TAB PO PRN (01:24)
[2021-05-31] MEDS: LORazepam 2 MG/4 ML VIAL IV PRN ×6 (01:30→21:36)
[2021-05-31] MEDS: GABAPENTIN 600 MG TAB PO SCH ×3 (01:41→20:42)
[2021-05-31 06:06] LABS: BUN Creatinine Ratio 15.2 (10-20); Calcium 7.8 mg/dl (8.5-10.1); Creatinine Clr Calc Pharmacy 155.9 ml/min; Est GFR (African American) 140.7 ml/min; Est GFR (Non-African American) 121.4 ml/min; Potassium 3.6 mmol/L (3.5-5.1)
[2021-05-31 06:08] LABS: Basophils # (auto) 0.01 K/uL (0-0.2); Basophils % (auto) 0.2 %; Eosinophils # (auto) 0.03 K/uL (0-0.5); Eosinophils % (auto) 0.5 %; Hematocrit (blood only) 38.8 % (37-47); Immature Granulocytes # (auto) 0.01 K/uL (0.00-0.02); Immature Granulocytes % (auto) 0.2 %; Lymphocytes # (auto) 1.64 K/uL (1.2-3.4); Mean Corpuscular Hemoglobin 32.2 pg (25-34); Mean Corpuscular Hgb Conc 33.5 g/dL (32-36); Mean Platelet Volume 8.9 fL (7.4-10.4); Monocytes # (auto) 0.39 K/uL (0.11-0.59); Monocytes % (auto) 6.4 %; Neutrophils % (auto) 65.7 %; Platelet Count 200 K/uL (130-400); RDW Coefficient of Variation 14.6 % (11.5-14.5); RDW Standard Deviation 51.6 fL (36.4-46.3); Red Blood Count 4.04 M/uL (4.2-5.4); White Blood Count 6.08 K/uL (4.8-10.8)
[2021-05-31 06:27] LABS: Albumin Level 3.1 gm/dl (3.4-5.0); Bilirubin,Total 0.9 mg/dl (0.2-1); Total Protein 6.1 gm/dl (6.4-8.2)
[2021-05-31] MEDS ORDERED: FAMOTIDINE 20MG/5ML IV PUSH IV ONE (08:30)
[2021-05-31] MEDS: FOLIC ACID 1 MG TAB PO SCH (08:34)
[2021-05-31] MEDS: THIAMINE HCL 100 MG TAB PO SCH (08:34)
[2021-05-31] MEDS: cloNIDine HCL 0.1 MG TAB PO SCH ×2 (08:34→20:42)
[2021-05-31] MEDS: FAMOTIDINE 20 MG in SYRINGE 3 ML IV SCH ×2 (08:42→20:42)
[2021-05-31] MEDS ORDERED: hydrOXYzine HCl 25 MG TAB PO PRN (09:27)
[2021-05-31] MEDS: ESCITALOPRAM OXALATE 20 MG TAB PO SCH (09:36)
[2021-05-31] MEDS: CALCIUM CARBONATE 500 MG CHEWABLE TAB PO PRN (09:36)
--- NOTE | 2021-05-31 10:38 | Psychiatric Consultation ---
Date of Consultation May 31, 2021 Impression / Recommendations Impression This is a 35 yo with a history of depression,anxiety, PTSD and polysubstance use admitted medically for acute withdrawal. Diagnostically consistent with alcohol and benzodiazepine use disorder as well as unspecified depression anxiety likely a combination of substance-induced as well as MDD, PTSD, ANGELINE. At this point risk of harm to self and others is slightly increased due to substance use with substance use treatment being the most significant modifiable risk factor to reduce acute and chronic risk. While she experienced SI with ambivalence about being alive in the context of alcohol use and withdrawal prior to admission she now convincingly denies SI and is not interested in inpatient psychiatric treatment and she does not meet 302 criteria. She is not interested in residential treatment at this time but is agreeable to re-engaging with her intensive outpatient services to help with substance use, mood symptoms. She is not interested in medication assisted treatment at this time (she finds ga bapentin most helpful for cravings). -Psychiatric liason will reach out to her outpatient IOP center tomorrow to see if she can re-engage with treatment (they were not open today) and continue to encourage referral locally to [facility] if she becomes interested/willing -Patient is not an imminent danger to self or others and does not meet criteria for involuntary psychiatric commitment -Continue AWSS as well as thiamine and folic acid -Agree with continuing prior to admission clonidine, gabapentin and lexapro -She has been using kratom so may have some symptoms of opioid withdrawal, she's already on clonidine. Symptomatic treatment: dicyclomine 20mg q6h prn abdominal cramps, loperamide 2mg q6h prn diarrhea, ibuprofen 600 mg q6h prn pain, hydroxyzine 50mg q6h prn anxiety, mirtazapine 15mg qhs prn for insomnia (1) Alcohol withdrawal: (2) Benzodiazepine withdrawal: (3) Alcohol use disorder, moderate, dependence: (4) Moderate benzodiazepine use disorder: (5) Depression, unspecified: see assessment above Risk Factors Assessment Do You Have Access To A Gun?: No Mental Health Diagnoses: Yes Substance Use Disorders: Yes Previous Attempt: No Previous Psychiatric Hospitalization: Yes Hopelessness: No Protective Factors Assessment Stable Relationships: Yes Supportive Family: Yes Good Rapport with Provider: Yes Psych History Identifying Data 35 yo woman with history of depression,anxiety, PTSD, alcohol use and benzodiazepine use with three prior psychiatric hospitalizations (last ~5 years ago) who was admitted medically for supervised withdrawal. Psychiatry was consulted for recommendations. Chief Complaint "I dug myself into a hole". History of Present Illness Mandy describes a history of psychiatric symptoms including depression, anxiety and PTSD as well as substance use (benzo and alcohol, prior residential tx for benzo use and ongoing IOP in [place] every 2-4 weeks for dual diagnosis for the last ~2 years through [facility]) which had been quite stable for the last two years. However, her mood worsening a bit this fall and then she got a stomach illness a few weeks ago and since then she started drinking alcohol again and notes that "I became too prideful to tell my psychiatrist what was happening" and that she felt ashamed and starting drinking more and more "just to keep from getting sick". She has been consuming approximately 16 hard seltzers per day over the last two weeks. She has been prescribed valium 5 mg qd in the past but per review of [facility] and per her report she ran out of it and there have been no new scripts. This caused her to start using kratum and a benzo-like medication she purchased online. She denies any other opioid use, recreational substances nor IVDU. Prior to admission she felt like she had gotten herself "into a hole I couldn't get out of" and that "I became dependent on alcohol". This lead her to feel suicidal due to "getting to this point again" and she started to feel ambivalent about being alive and drinking even more. She notes that the withdrawal symptoms felt so awful when she tried to stop drinking that she no longer wanted to be alive. Her became frustrated with her drinking and she states "that was a major wakeup call" and lead her to come to the ED. Currently she denies SI and is future-oriented and motivated to resume treatment with her IOP [facility]. She continues to have some withdrawal side effects but feels more comfortable since receiving medication per the AWSS. She feels residential programs have not been helpful in the past so she doesn't want to do this (last was 2 years ago) and she declines offers for referrals to programs in [facility] such as [facility]. She does not desire inpatient psychiatric treatment as she feels that once she gets back into treatment for alcohol use she'll feel better again. She tried acamprosate in the past and didn't find it helpful, not interested in naltrexone, finds gabapentin most helpful for cravings. Past Psychiatric History Previous Psych History: see HPI Outpatient Services: engages with IOP therapy and psych services through [facility] in [place] where she has also recieved tx with ketamine and tMS in the past. Previous Psych Admissions: see HPI Do You Have Access To A Gun?: No History of Previous Suicide Attempt: No Past Medication Trials: see HPI Additional Notes: hx cutting, last 2 years ago Allergies Allergy/AdvReac Type Severity Reaction Status Date / Time latex Allergy Severe Anaphylaxis, Verified 05/30/21 17:01 throat swells MANY FOOD ALLERGIES Allergy Severe Anaphylaxis Uncoded 05/30/21 17:01 Home Medications Medication Instructions Recorded Confirmed Type Diclazepam 0 mg PO DIRECTED 05/30/21 05/30/21 History baclofen 10 mg tablet 10 mg PO TID PRN 05/30/21 05/30/21 History clonidine HCl 0.2 mg tablet 0.2 mg PO BID 05/30/21 05/30/21 History escitalopram oxalate 20 mg tablet 2 mg PO DAILY 05/30/21 05/30/21 History gabapentin 600 mg tablet 600 mg PO BID 05/30/21 05/30/21 History hydroxyzine HCl 25 mg tablet 25 mg PO HS 05/30/21 05/30/21 History ketamine 10 mg/mL injection 0 mg IM DIRECTED 05/30/21 05/30/21 History solution mirtazapine 7.5 mg tablet 7.5 mg PO HS PRN 05/30/21 05/30/21 History ondansetron 4 mg disintegrating 4 mg PO BID PRN 05/30/21 05/30/21 History tablet propranolol 20 mg tablet 20 mg PO DAILY PRN 05/30/21 05/30/21 History Family History mother with BPD Substance Abuse History see HPI Personal History Living Arrangements: Home (with ) 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 ) Marital Status: Number Of Children: 0 Beliefs That Will Affect Care: None History of Legal Problems: denies Patient History Medical History (Updated 05/31/21 @ 12:40 by Sherry Malagon MD) Alcohol use disorder, moderate, dependence Anxiety Depression, unspecified Moderate benzodiazepine use disorder Post traumatic stress disorder (PTSD) Social History Smoking Status: Unknown if ever smoked Preferred Language: Irish Communication Ability: Effective Eyelet Operator Required: No Beliefs That Will Affect Care: None Current Living Situation: Family Feels Safe at Home: Yes Physical Exam Psychiatric: Orientation: alert and oriented x 3 Apperance: appropriately dressed and appropriately groomed Eye Contact: good eye contact Motor Behavior: no abnormal motor movements Speech: normal rate/rhythm/volume of speech Affect: + depressed affect Mood: + depressed mood and + anxious mood Thought Process: goal directed thought process Thought Content: reality based without delusions Suicidal Thoughts: denies suicidal thoughts Homicidal Thoughts: denies homicidal thoughts Hallucinations: no auditory hallucinations and no visual hallucinations Cognition: recent memory grossly intact, remote memory grossly intact, attention grossly intact and language grossly intact Estimated Intelligence: consistent with education level Insight: + fair insight Judgement: + fair judgement Vital Signs (Past 24 Hours): Last Vital Signs Temp 37.2 C 05/31/21 08:29 Pulse 114 H 05/31/21 09:42 Resp 18 05/31/21 09:42 BP 120/79 05/31/21 09:42 Pulse Ox 98 05/31/21 09:42 Review of Systems All systems reviewed & are unremarkable except as noted in HPI & below (describes various withdrawal symptoms including alternating chills/hot, anxiety, restlessness) Results & Data (PSY) Medications Administered Calcium Carbonate (Calcium Carbonate 500 Mg Chewable Tab) 500 mg PO Q4 PRN PRN Reason: Indigestion Stop: 06/30/21 09:26 Last Admin: 05/31/21 09:36 Dose: 500 mg Documented by: [id number] Clonidine HCl (Clonidine Hcl 0.1 Mg Tab) 0.2 mg PO BID [facility] Stop: 06/30/21 08:59 Last Admin: 05/31/21 08:34 Dose: 0.2 mg Documented by: [id number] Escitalopram Oxalate (Escitalopram Oxalate 20 Mg Tab) 20 mg PO QAM [facility] Stop: 06/30/21 09:29 Last Admin: 05/31/21 09:36 Dose: 20 mg Documented by: [id number] Folic Acid (Folic Acid 1 Mg Tab) 1 mg PO QAM [facility] Stop: 06/30/21 08:59 Last Admin: 05/31/21 08:34 Dose: 1 mg Documented by: [id number] Gabapentin (Gabapentin 600 Mg Tab) 600 mg PO BID [facility] Stop: 06/30/21 01:23 Last Admin: 05/31/21 08:34 Dose: 600 mg Documented by: [id number] Admin: 05/31/21 01:41 Dose: 600 mg Documented by: [id number] Hydroxyzine HCl (Hydroxyzine Hcl 25 Mg Tab) 25 mg PO QID PRN PRN Reason: restlessness/anxiety Stop: 06/30/21 09:26 Last Admin: 05/31/21 09:36 Dose: 25 mg Documented by: [id number] Famotidine 20 mg/ Syringe 5 mls @ 2.5 mls/min IV Q12 [facility] Stop: 06/30/21 08:59 Last Admin: 05/31/21 08:42 Dose: Not Given Documented by: [id number] Lorazepam (Ativan) 2 mg in 4 mls @ 4 mls/min IV UD PRN; Protocol PRN Reason: EtOH Withdrawl AWSS Score 8,9 Stop: 06/30/21 01:23 Last Admin: 05/31/21 08:34 Dose: 4 mls/min Documented by: [id number] Admin: 05/31/21 06:32 Dose: 4 mls/min Documented by: [id number] Admin: 05/31/21 05:29 Dose: 4 mls/min Documented by: [id number] Admin: 05/31/21 01:30 Dose: 4 mls/min Documented by: [id number] Thiamine HCl (Thiamine Hcl 100 Mg Tab) 100 mg PO QAM [facility] Stop: 06/30/21 08:59 Last Admin: 05/31/21 08:34 Dose: 100 mg Documented by: [id number] Coding Level of Care Code 98602 Inpt Consult Level 3 Diagnoses Alcohol withdrawal F10.239 Benzodiazepine withdrawal F13.239 Alcohol use disorder, moderate, dependence F10.20 Moderate benzodiazepine use disorder F13.20 Depression, unspecified F32.A
[2021-05-31] MEDS: LORazepam 3 MG/6 ML VIAL IV PRN ×2 (13:05→16:47)
[2021-05-31] MEDS ORDERED: hydrOXYzine HCl 25 MG TAB ONE (13:24)
[2021-05-31] MEDS ORDERED: PHENobarbitaL sodium 130 MG in SYRINGE 0 ML IV ONE (16:40)
[2021-05-31] MEDS: LORazepam 1 MG/2 ML VIAL IV PRN (17:50)
[2021-05-31] MEDS: hydrOXYzine HCl 25 MG TAB PO PRN ×2 (17:50→21:36)
--- NOTE | 2021-05-31 17:56 | Hospitalist Progress Note ---
Date of Service May 31, 2021 Assessment & Plan (1) Polysubstance abuse: Plan: Polysubstance abuse/withdrawal -MICHEL S symptom triggered Ativan -Give trial to additional dose of phenobarbital potentiated benzodiazepines given that she is still quite symptomatic in spite of fairly significant doses of Ativan -Reassurance/supportive care -Thiamine and folate (2) Alcohol withdrawal: Plan: See above (3) Benzodiazepine withdrawal: Plan: See above (4) Abnormal LFTs: Plan: Improving, almost certainly substance abuse related Plan: DVT prophylaxis with SCDs Ongoing acute care management of her withdrawal. At time of discharge, we will definitely want to have her plugged back in with her outpatient psychiatric care Admission and Anticipated Discharge Date Admission Date: May 31, 2021 Subjective Still feels fairly terriblemostly shaky/tremulous, a little bit nauseated as well. No vomiting since last night, no diarrhea. Review of Systems Review of Systems: All systems reviewed & are unremarkable except as noted in HPI & below Physical Exam Physical Exam: General she is awake and alert appears very anxious is extremely shaky. Abdomen is soft mild epigastric tenderness no guarding rebound or rigidity. Neuro without focal deficits. Skin without rashes, pallor, icterus. Results & Data Results & Data ([facility]) Vital Signs (Past 12 Hours) Vital Signs Temp Pulse Resp BP Pulse Ox Pulse Ox 05/31/21 17:36 99.9 F H 106 H 18 142/89 H 99 05/31/21 16:40 99.9 F H 119 H 22 150/98 H 98 05/31/21 09:42 114 H 18 120/79 98 05/31/21 08:29 99.0 F 111 H 22 143/80 H 98 05/31/21 06:34 118 H 16 98 98 PG Care Time/CCT Total # of Minutes Spent Total Time Spent with Patient: Total time spent is greater than 50% in coordination of care (as documented) at patient's floor/unit and/or counseling patient: Coding Level of Care Code 75010 Subseq Hosp Care Lvl 3 Diagnoses Polysubstance abuse F19.10 Alcohol withdrawal F10.239 Benzodiazepine withdrawal F13.239 Abnormal LFTs R79.89
[2021-05-31] MEDS: PANTOprazole 40 MG TAB PO SCH (20:42)
--- NOTE | 2021-06-01 05:47 | Electrocardiogram Report ---
Test Reason : Blood Pressure : / mmHG Vent. Rate : 088 BPM Atrial Rate : 088 BPM P-R Int : 132 ms QRS Dur : 086 ms QT Int : 416 ms P-R-T Axes : 066 051 035 degrees QTc Int : 503 ms Normal sinus rhythm Prolonged QT Abnormal ECG No previous ECGs available Confirmed by Juan Lu ([id number]) on 06/01/2021 5:47:39 AM Referred By: REFERRED SELF Confirmed By:Juan Lu
--- NOTE | 2021-06-01 05:49 | Electrocardiogram Report ---
Test Reason : Blood Pressure : / mmHG Vent. Rate : 095 BPM Atrial Rate : 095 BPM P-R Int : 140 ms QRS Dur : 084 ms QT Int : 404 ms P-R-T Axes : 061 046 028 degrees QTc Int : 507 ms Normal sinus rhythm Nonspecific ST abnormality Prolonged QT Abnormal ECG When compared with ECG of 30-MAY-2021 18:49, No significant change was found Confirmed by Juan Lu ([id number]) on 06/01/2021 5:49:48 AM Referred By: REFERRED SELF Confirmed By:Juan Lu
[2021-06-01 05:57] LABS: Hemoglobin 11.9 g/dL (12.0-16.0); Mean Corpuscular Hemoglobin 31.7 pg (25-34); Mean Corpuscular Hgb Conc 33.1 g/dL (32-36); Mean Platelet Volume 9.1 fL (7.4-10.4); Platelet Count 152 K/uL (130-400); RDW Coefficient of Variation 14.4 % (11.5-14.5); RDW Standard Deviation 51.1 fL (36.4-46.3); Red Blood Count 3.75 M/uL (4.2-5.4); White Blood Count 3.33 K/uL (4.8-10.8)
[2021-06-01 06:27] LABS: BUN Creatinine Ratio 8.7 (10-20); Calcium 8.5 mg/dl (8.5-10.1); Creatinine Clr Calc Pharmacy 156.5 ml/min; Potassium 3.6 mmol/L (3.5-5.1)
[2021-06-01 06:30] LABS: Albumin Globulin Ratio 1.1 (0.9-2); Bilirubin,Total 0.5 mg/dl (0.2-1); Globulin 2.8 gm/dl (2.5-4.0); Total Protein 5.8 gm/dl (6.4-8.2)
[2021-06-01 06:33] LABS: Basophils # (auto) 0.01 K/uL (0-0.2); Basophils % (auto) 0.3 %; Lymphocytes # (auto) 1.72 K/uL (1.2-3.4); Lymphocytes % (auto) 51.7 %; Monocytes # (auto) 0.28 K/uL (0.11-0.59); Monocytes % (auto) 8.4 %; Neutrophils # (auto) 1.22 K/uL (1.4-6.5); Neutrophils % (auto) 36.6 %; RBC Morphology Unremarkable
[2021-06-01] MEDS ORDERED: FAMOTIDINE 20MG/5ML IV PUSH IV ONE (08:04)
[2021-06-01] MEDS: GABAPENTIN 600 MG TAB PO SCH ×2 (08:11→20:08)
[2021-06-01] MEDS: FAMOTIDINE 20 MG in SYRINGE 3 ML IV SCH ×2 (08:11→20:08)
[2021-06-01] MEDS: FOLIC ACID 1 MG TAB PO SCH (08:11)
[2021-06-01] MEDS: ESCITALOPRAM OXALATE 20 MG TAB PO SCH (08:11)
[2021-06-01] MEDS: cloNIDine HCL 0.1 MG TAB PO SCH ×2 (08:11→20:08)
[2021-06-01] MEDS: PANTOprazole 40 MG TAB PO SCH ×2 (08:12→20:09)
[2021-06-01] MEDS: THIAMINE HCL 100 MG TAB PO SCH (08:12)
[2021-06-01] MEDS: CALCIUM CARBONATE 500 MG CHEWABLE TAB PO PRN (08:15)
[2021-06-01] MEDS ORDERED: DICYCLOMINE HCL 20 MG TAB PO PRN (10:22)
[2021-06-01] MEDS ORDERED: chlordiazePOXIDE ALCOHOL WITHDRAWL 50MG PO STA (10:28)
--- NOTE | 2021-06-01 11:05 | Psychiatric Progress Note ---
Date of Service June 01, 2021 Impression / Recommendations Impression This is a 35 yo with a history of depression,anxiety, PTSD and polysubstance use admitted medically for acute withdrawal. Diagnostically consistent with alcohol and benzodiazepine use disorder as well as unspecified depression anxiety likely a combination of substance-induced as well as MDD, PTSD, ANGELINE. At this point risk of harm to self and others is slightly increased due to substance use with substance use treatment being the most significant modifiable risk factor to reduce acute and chronic risk. While she experienced SI with ambivalence about being alive in the context of alcohol use and withdrawal prior to admission she now convincingly denies SI and is not interested in inpatient psychiatric treatment and she does not meet 302 criteria. She is not interested in residential treatment at this time but is agreeable to re-engaging with her intensive outpatient services to help with substance use, mood symptoms. She is not interested in medication assisted treatment at this time (she finds gabape ntin most helpful for cravings). 06/01/21: improving, mood stable, plan for [facility]pt treatment with [facility] and she was provided with information on local dual diagnosis programs should she choose to have local providers as well -outpatient IOP center working with her to set up follow-up once medically stable -Patient is not an imminent danger to self or others and does not meet criteria for involuntary psychiatric commitment -Continue AWSS as well as thiamine and folic acid -Agree with continuing prior to admission clonidine, gabapentin and lexapro -She has been using kratom so may have some symptoms of opioid withdrawal, she's already on clonidine. Symptomatic treatment: dicyclomine 20mg q6h prn abdominal cramps, loperamide 2mg q6h prn diarrhea, ibuprofen 600 mg q6h prn pain, hydro xyzine 50mg q6h prn anxiety, mirtazapine 15mg qhs prn for insomnia (1) Alcohol use disorder, moderate, dependence: (2) Moderate benzodiazepine use disorder: (3) Depression, unspecified: see impression Risk Factors Assessment Do You Have Access To A Gun?: No Mental Health Diagnoses: Yes Substance Use Disorders: Yes Previous Attempt: No Previous Psychiatric Hospitalization: Yes Hopelessness: No Protective Factors Assessment Stable Relationships: Yes Supportive Family: Yes Good Rapport with Provider: Yes Interval History Identifying Information 35 yo woman with history of depression,anxiety, PTSD, alcohol use and benzodiazepine use with three prior psychiatric hospitalizations (last ~5 years ago) who was admitted medically for supervised withdrawal. Psychiatry was consulted for recommendations. Chief Complaint "I'm feeling better today". Review of Systems Notes see subjective Subjective Subjective Patient was seen & assessed and interval progress reviewed. Psych liason spoke with her outpt psychiatrist who is agreeable to continuing substance use and mood disorder treatment after discharge through [facility] once she's medically clear and he'll schedule with Mandy. She reports feeling better today and that the withdrawal symptoms are lessening. Has a bit of an appetite today. Reports good sleep. Mood is stable. Remains motivated for substance use tx. Physical Exam Psychiatric Orientation: alert and oriented x 3 Apperance: appropriately dressed and appropriately groomed Eye Contact: good eye contact Motor Behavior: no abnormal motor movements Speech: normal rate/rhythm/volume of speech Affect: euthymic affect Mood: + anxious mood Thought Process: goal directed thought process Thought Content: reality based without delusions Suicidal Thoughts: denies suicidal thoughts Homicidal Thoughts: denies homicidal thoughts Hallucinations: no auditory hallucinations and no visual hallucinations Cognition: recent memory grossly intact, remote memory grossly intact, attention grossly intact and language grossly intact Estimated Intelligence: consistent with education level Insight: + fair insight Judgement: + fair judgement Vital Signs (Past 24 Hours) Last Vital Signs Temp 37.8 C H 06/01/21 06:05 Pulse 86 06/01/21 06:05 Resp 16 06/01/21 06:05 BP 140/90 06/01/21 06:05 Pulse Ox 98 06/01/21 06:05 Results & Data ([facility]) Laboratory Results Laboratory Results - last 24 hr 06/01/21 06/01/21 05:19 05:19 WBC 3.33 L RBC 3.75 L Hgb 11.9 L Hct 36.0 L MCV 96.0 MCH 31.7 MCHC 33.1 RDW Std Deviation 51.1 H RDW Coeff of Sotero 14.4 Plt Count 152 MPV 9.1 Immature Gran % (Auto) 0.0 Neut % (Auto) 36.6 Lymph % (Auto) 51.7 Ceiba % (Auto) 8.4 Eos % (Auto) 3.0 Baso % (Auto) 0.3 Neut # (Auto) 1.22 L Lymph # (Auto) 1.72 Ceiba # (Auto) 0.28 Eos # (Auto) 0.10 Baso # (Auto) 0.01 Immature Gran # (Auto) 0.00 RBC Morphology Unremarkable Sodium 142 Potassium 3.6 Chloride 109 H Carbon Dioxide 27 Anion Gap 6.0 BUN 5 L Creatinine 0.56 L Est Cr Clr Drug Dosing 156.5 Est GFR ( Amer) 139.0 Est GFR (Non-Af Amer) 120.0 BUN/Creatinine Ratio 8.7 L Glucose 89 Calcium 8.5 Total Bilirubin 0.5 AST 93 H ALT 86 H Alkaline Phosphatase 63 Total Protein 5.8 L Albumin 3.0 L Globulin 2.8 Albumin/Globulin Ratio 1.1 Current Inpatient Medications Current Inpatient Medications: Current Inpatient Medications Calcium Carbonate (Calcium Carbonate 500 Mg Chewable Tab) 500 mg PO Q4 PRN PRN Reason: Indigestion Stop: 06/30/21 09:26 Last Admin: 06/01/21 08:15 Dose: 500 mg Documented by: Chlordiazepoxide HCl (Chlordiazepoxide Hcl 25 Mg Cap) 50 mg PO Q6H [facility]; Taper Stop: 06/04/21 11:59 Chlordiazepoxide HCl (Chlordiazepoxide Hcl 10 Mg Cap) 10 mg PO Q12H [facility] Stop: 06/05/21 06:01 Clonidine HCl (Clonidine Hcl 0.1 Mg Tab) 0.2 mg PO BID [facility] Stop: 06/30/21 08:59 Last Admin: 06/01/21 08:11 Dose: 0.2 mg Documented by: Dicyclomine HCl (Dicyclomine Hcl 20 Mg Tab) 20 mg PO Q6 PRN PRN Reason: abdominal cramping Stop: 07/01/21 11:59 Escitalopram Oxalate (Escitalopram Oxalate 20 Mg Tab) [facility] [place]: 06/30/21 09:29 Last Admin: 06/01/21 08:11 Dose: 20 mg Documented by: Folic Acid (Folic Acid 1 Mg Tab) 1 mg PO QAM [facility] Stop: 06/30/21 08:59 Last Admin: 06/01/21 08:11 Dose: 1 mg Documented by: Gabapentin (Gabapentin 600 Mg Tab) 600 mg PO BID [facility] Stop: 06/30/21 01:23 Last Admin: 06/01/21 08:11 Dose: 600 mg Documented by: Hydroxyzine HCl (Hydroxyzine Hcl 25 Mg Tab) 25 mg PO Q4 PRN PRN Reason: restlessness/anxiety Stop: 06/30/21 09:26 Last Admin: 05/31/21 21:36 Dose: 25 mg Documented by: Famotidine 20 mg/ Syringe 5 mls @ 2.5 mls/min IV Q12 [facility] Stop: 06/30/21 08:59 Last Admin: 06/01/21 08:11 Dose: Not Given Documented by: Lorazepam (Ativan) 1 mg in 2 mls @ 2 mls/min IV UD PRN; Protocol PRN Reason: EtOH Withdrawl AWSS Score 6,7 Stop: 06/30/21 01:23 Last Admin: 05/31/21 17:50 Dose: 2 mls/min Documented by: Lorazepam (Ativan) 2 mg in 4 mls @ 4 mls/min IV UD PRN; Protocol PRN Reason: EtOH Withdrawl AWSS Score 8,9 Stop: 06/30/21 01:23 Last Admin: 05/31/21 21:36 Dose: 4 mls/min Documented by: Lorazepam (Ativan) 3 mg in 6 mls @ 4 mls/min IV ONCE PRN; Protocol PRN Reason: EtOH Withdrawl AWSS Score >=10 Stop: 06/30/21 01:23 Last Admin: 05/31/21 16:47 Dose: 4 mls/min Documented by: Ibuprofen (Ibuprofen 600 Mg Tab) 600 mg PO Q6H PRN PRN Reason: pain Stop: 07/01/21 10:21 Loperamide HCl (Loperamide Hcl 2 Mg Cap) 2 mg PO Q6 PRN PRN Reason: diarrhea Stop: 07/01/21 10:21 Mirtazapine (Mirtazapine Tab 15 Mg Tab) 15 mg PO HS PRN PRN Reason: Sleep Stop: 06/30/21 01:23 Ondansetron HCl (Ondansetron Inj 2 Mg/Ml 2 Ml Vial) 4 mg IV Q6H PRN PRN Reason: Nausea Stop: 06/30/21 01:23 Pantoprazole Sodium (Pantoprazole 40 Mg Tab) 40 mg PO BID [facility] Stop: 06/30/21 20:59 Last Admin: 06/01/21 08:12 Dose: 40 mg Documented by: Thiamine HCl (Thiamine Hcl 100 Mg Tab) 100 mg PO QAM [facility] Stop: 06/30/21 08:59 Last Admin: 06/01/21 08:12 Dose: 100 mg Documented by:
--- NOTE | 2021-06-01 11:44 | Hospitalist Progress Note ---
Date of Service June 01, 2021 Assessment & Plan (1) Alcohol withdrawal: Plan: Here with signs and symptoms of alcohol withdrawal after binge drinking 12 beers a day for the last 2 weeks and a history of alcohol use disorder Requiring high doses of IV Ativan over 20 mg last 24 hours With hypertension and tachycardia, tremor, nausea-improving somewhat today -Start Librium taper -Continue Ativan as needed per MICHEL scale -Continue thiamine and folate -Counseled on cessation and she is committed to this -Discharge back to [facility] in [place] when medically stablesee psychiatry notes for details-arrangements have been made for this -With alcoholic hepatitis most likely as below (2) Polysubstance abuse: Plan: Using benzodiazepines both illicitly and previously on Valium for a long time Also using kratom which is opioid like qualities -Clonidine twice daily, continue gabapentin Ativan and Librium as above Add on loperamide as needed for diarrhea, dicyclomine as needed for abdominal cramping, hydroxyzine as needed for anxiety (3) Benzodiazepine withdrawal: Plan: As above (4) Abnormal LFTs: Plan: AST and ALT slightly higher today than previous, bilirubin normal Likely alcoholic hepatitis Continue abstinence from alcohol Follow LFTs Hepatitis panel pending (5) Anxiety: Plan: Appreciate psychiatry consultation Continue treatment for alcohol and benzodiazepine withdrawal as above Continue Lexapro 20 mg daily Hydroxyzine as needed for anxiety Mirtazapine increased to 15 mg at bedtime as needed (6) PTSD (post-traumatic stress disorder): Plan: Gets TMS (transcranial magnetic stimulation) for this at a clinic in [place] (7) Depression: Plan: As above Appreciate psychiatry consultation-no need for involuntary commitment (8) Elevated blood pressure reading without diagnosis of hypertension: Plan: Treating with Librium and Ativan as above Can give IV hydralazine for SBP greater than 180 Plan: DVT prophylaxis with SCDs Disposition-continued stay, but if LFTs improving and vital stable, could possibly discharge home in the next 1 to 2 days Admission and Anticipated Discharge Date Admission Date: May 31, 2021 Subjective Patient reports feeling better this morning, still requiring IV Ativan blood pressures are elevated, but overall nausea and tremor improving. She required over 20 mg of IV Ativan last 24 hours She is agreeable to starting Librium Denies abdominal pains. I discussed her care with the psychiatrist Telemetry with sinus tachycardia normal sinus rhythm Review of Systems Review of Systems: All systems reviewed & are unremarkable except as noted in HPI & below No bowel movement since admission Making urine Is eating somewhat more today No chest pain or shortness of breath, no lightheadedness Physical Exam Constitutional: WD/WN, vitals as above Eyes: PERRL, conjunctivae normal, anicteric sclerae ENMT: external ear and nose normal, oropharynx normal Neck: trachea midline, no thyromegaly Respiratory: normal respiratory effort, lungs clear to auscultation Cardiovascular: RRR, no murmur, no edema Chest (Breasts): Chest: normal inspection of chest Gastrointestinal (Abdomen): normal bowel sounds, soft, nontender, no hepatosplenomegaly Musculoskeletal: Extremities: extremities normal to inspection; no cyanosis and no clubbing Skin: no rashes, warm and dry Neurologic: moves all extremities and awake; no focal motor deficits Psychiatric: A+Ox3, euthymic affect Lymphatic: no lymphedema Results & Data Results & Data ([facility]) Vital Signs (Past 12 Hours) Vital Signs Temp Pulse Resp BP Pulse Ox Pulse Ox 06/01/21 06:05 37.8 C H 86 16 140/90 98 06/01/21 06:03 37.0 C 86 18 140/90 98 06/01/21 06:00 98 Laboratory Results 06/01/21 06/01/21 05/30/21 Range/Units 05:19 05:19 15:33 WBC 3.33 L (4.8-10.8) K/uL RBC 3.75 L (4.2-5.4) M/uL Hgb 11.9 L (12.0-16.0) g/dL Hct 36.0 L (37-47) % MCV 96.0 (80-100) fL MCH 31.7 (25-34) pg MCHC 33.1 (32-36) g/dL RDW Std Deviation 51.1 H (36.4-46.3) fL RDW Coeff of Sotero 14.4 (11.5-14.5) % Plt Count 152 (130-400) K/uL MPV 9.1 (7.4-10.4) fL Immature Gran % (Auto) 0.0 % Neut % (Auto) 36.6 % Lymph % (Auto) 51.7 % [place] % (Auto) 8.4 % Eos % (Auto) 3.0 % Baso % (Auto) 0.3 % Neut # (Auto) 1.22 L (1.4-6.5) K/uL Lymph # (Auto) 1.72 (1.2-3.4) K/uL [place] # (Auto) 0.28 (0.11-0.59) K/uL Eos # (Auto) 0.10 (0-0.5) K/uL Baso # (Auto) 0.01 (0-0.2) K/uL Immature Gran # (Auto) 0.00 (0.00-0.02) K/uL RBC Morphology Unremarkable Sodium 142 (136-145) mmol/L Potassium 3.6 (3.5-5.1) mmol/L Chloride 109 H (98-107) mmol/L Carbon Dioxide 27 (21-32) mmol/L Anion Gap 6.0 (3-11) BUN 5 L (7-18) mg/dl Creatinine 0.56 L (0.6-1.2) mg/dl Est Cr Clr Drug Dosing 156.5 ml/min Est GFR ( Amer) 139.0 ml/min Est GFR (Non-Af Amer) 120.0 ml/min BUN/Creatinine Ratio 8.7 L (10-20) Glucose 89 (70-99) mg/dl Calcium 8.5 (8.5-10.1) mg/dl Total Bilirubin 0.5 (0.2-1) mg/dl AST 93 H (15-37) U/L ALT 86 H (12-78) Alkaline Phosphatase 63 (45-117) U/L Total Protein 5.8 L (6.4-8.2) gm/dl Albumin 3.0 L (3.4-5.0) gm/dl Globulin 2.8 (2.5-4.0) gm/dl Albumin/Globulin Ratio 1.1 (0.9-2) Hep Bs Antigen Neg (Neg) Hepatitis C Antibody Neg (Neg) PG Care Time/CCT Total # of Minutes Spent Total Time Spent with Patient: Total time spent is greater than 50% in coordination of care (as documented) at patient's floor/unit and/or counseling patient: Coding Level of Care Code 69541 Subseq Hosp Care Lvl 3 Diagnoses Polysubstance abuse F19.10 Alcohol withdrawal F10.239 Benzodiazepine withdrawal F13.239 Abnormal LFTs R79.89 Anxiety F41.9 PTSD (post-traumatic stress disorder) F43.10 Depression F32.89 Depression Type: other depression Elevated blood pressure reading without diagnosis of hypertension R03.0 (1) Depression Depression Type: other depression Qualified Code(s): F32.89 - Other specified depressive episodes
[2021-06-01] MEDS: chlordiazePOXIDE HCl 25 MG CAP PO SCH ×2 (12:27→18:26)
[2021-06-01 13:58] LABS: Hepatitis B Surf Ag Rflx Conf Neg (Neg)
[2021-06-01 14:27] LABS: Hepatitis C IgG 13Yrs+Old_Rflx Neg (Neg)
[2021-06-01] MEDS: LORazepam 2 MG/4 ML VIAL IV PRN (15:25)
[2021-06-01] MEDS: LOPERAMIDE HCL 2 MG CAP PO PRN (15:46)
[2021-06-01] MEDS: LORazepam 1 MG/2 ML VIAL IV PRN ×3 (16:24→21:02)
[2021-06-01] MEDS ORDERED: hydrALAZINE HCL 20 MG/ML VIAL IV STA (18:36)
[2021-06-01] MEDS ORDERED: hydrALAZINE HCL 20 MG/ML VIAL ONE (18:42)
[2021-06-01] MEDS: MIRTAZAPINE TAB 15 MG TAB PO PRN (20:16)
[2021-06-02] MEDS: chlordiazePOXIDE HCl 25 MG CAP PO SCH ×4 (00:08→19:35)
[2021-06-02] MEDS: hydrOXYzine HCl 25 MG TAB PO PRN ×4 (00:15→18:22)
[2021-06-02] MEDS ORDERED: hydrALAZINE HCL 20 MG/ML VIAL IV PRN (02:30)
[2021-06-02] MEDS: LORazepam 3 MG/6 ML VIAL IV PRN (02:30)
[2021-06-02 05:53] LABS: Basophils # (auto) 0.01 K/uL (0-0.2); Basophils % (auto) 0.2 %; Eosinophils # (auto) 0.16 K/uL (0-0.5); Eosinophils % (auto) 3.6 %; Hematocrit (blood only) 36.6 % (37-47); Hemoglobin 12.3 g/dL (12.0-16.0); Immature Granulocytes # (auto) 0.01 K/uL (0.00-0.02); Immature Granulocytes % (auto) 0.2 %; Lymphocytes # (auto) 1.82 K/uL (1.2-3.4); Lymphocytes % (auto) 41.5 %; Mean Corpuscular Hemoglobin 32.3 pg (25-34); Mean Corpuscular Hgb Conc 33.6 g/dL (32-36); Mean Corpuscular Volume 96.1 fL (80-100); Mean Platelet Volume 9.2 fL (7.4-10.4); Monocytes # (auto) 0.37 K/uL (0.11-0.59); Monocytes % (auto) 8.4 %; Neutrophils # (auto) 2.02 K/uL (1.4-6.5); Neutrophils % (auto) 46.1 %; Platelet Count 152 K/uL (130-400); RDW Coefficient of Variation 14.4 % (11.5-14.5); RDW Standard Deviation 50.7 fL (36.4-46.3); Red Blood Count 3.81 M/uL (4.2-5.4); White Blood Count 4.39 K/uL (4.8-10.8)
[2021-06-02 06:34] LABS: Albumin Level 3.2 gm/dl (3.4-5.0); BUN Creatinine Ratio 8.2 (10-20); Calcium 8.8 mg/dl (8.5-10.1); Creatinine Clr Calc Pharmacy 171.2 ml/min; Est GFR (African American) 143.4 ml/min; Est GFR (Non-African American) 123.7 ml/min; Magnesium 2.3 mg/dl (1.8-2.4); Potassium 3.2 mmol/L (3.5-5.1)
[2021-06-02 06:37] LABS: Albumin Globulin Ratio 1.1 (0.9-2); Bilirubin,Total 0.5 mg/dl (0.2-1); Total Protein 6.2 gm/dl (6.4-8.2)
[2021-06-02] MEDS: LORazepam 2 MG/4 ML VIAL IV PRN ×2 (07:41→15:37)
[2021-06-02] MEDS: ONDANSETRON INJ 2 MG/ML 2 ML VIAL IV PRN (07:41)
[2021-06-02] MEDS: ESCITALOPRAM OXALATE 20 MG TAB PO SCH (08:24)
[2021-06-02] MEDS: THIAMINE HCL 100 MG TAB PO SCH (08:24)
[2021-06-02] MEDS: cloNIDine HCL 0.1 MG TAB PO SCH ×2 (08:24→20:56)
[2021-06-02] MEDS: GABAPENTIN 600 MG TAB PO SCH ×2 (08:25→20:57)
[2021-06-02] MEDS: FOLIC ACID 1 MG TAB PO SCH (08:25)
[2021-06-02] MEDS: PANTOprazole 40 MG TAB PO SCH ×2 (08:25→20:57)
[2021-06-02] MEDS: FAMOTIDINE 20 MG in SYRINGE 3 ML IV SCH ×2 (08:25→20:57)
--- NOTE | 2021-06-02 13:38 | Ultrasound Report ---
US liver CLINICAL HISTORY: elevated LFTs TECHNIQUE: Multiple real-time sonographic images of the right upper quadrant were obtained. Comparison: Comparison is made to abdomen ultrasound 06/23/2020 FINDINGS: The liver is diffusely echogenic in appearance with poor ultrasound penetration, with normal contour, which is consistent with fatty infiltration. Liver is increased in length, measuring 20.4 cm. No fo brianna mass lesions are seen. No intrahepatic ductal dilatation is seen. No gallstones or sludge are identified within the gallbladder. The gallbladder wall is not thickened. There is no pericholecysti c fluid present. A sonographic Julien's sign was not elicited by the senior hardware design engineer. The common duct measures 0.5 cm in diameter at the level of the hepatic artery. The visualized portions of the pancr eas appear normal. The right kidney shows normal echogenicity, cortical thickness and renal contour. The right kidney sh ows no evidence of hydronephrosis or mass. No ascites or free fluid is seen in Chaudhary's pouch. IMPRESSION: 1. Hepatic steatosis and hepatomegaly. 2. Otherwise no acute abnormalities are seen. ACT 112: Negative or not required by law. Electronically signed by: Nick Enrique M.D. 06/02/2021 1:37 PM
[2021-06-02] MEDS: LORazepam 1 MG/2 ML VIAL IV PRN (19:34)
--- NOTE | 2021-06-02 20:00 | Hospitalist Progress Note ---
Date of Service June 02, 2021 Assessment & Plan (1) Alcohol withdrawal: Plan: Here with signs and symptoms of alcohol withdrawal after binge drinking 12 beers a day for the last 2 weeks and a history of alcohol use disorder and substance use disorder Requiring high doses of IV Ativan initially requiring 20 mg total in the first 24 hours Today requiring less, down to 12 to 15 mg IV Ativan in the last 24 hours Started Librium taper which is helping With hypertension and tachycardia improving, but with ongoing tremor, nausea -Continue Librium taper -Continue Ativan as needed per AWSS -Continue thiamine and folate -Counseled on cessation and she is committed to this -Discharge back to [facility] in [place] when medically stable-see psychiatry notes for details-arrangements have been made for this -With alcoholic hepatitis most likely as below (2) Polysubstance abuse: Plan: Using benzodiazepines both illicitly and previously on Valium for a long time Also using kratom which has opioid like qualities -Clonidine twice daily, continue gabapentin Ativan and Librium as above Continue on loperamide as needed for diarrhea, dicyclomine as needed for abdominal cramping, hydroxyzine as needed for anxiety (3) Benzodiazepine withdrawal: Plan: As above (4) Abnormal LFTs: Plan: AST and ALT even higher today than previous, bilirubin remains normal With nausea but no abdominal pain Right upper quadrant ultrasound shows hepatomegaly and hepatic steatosis-cons istent with alcoholic fatty liver disease Likely alcoholic hepatitis Continue abstinence from alcohol Follow LFTs in the morning Hepatitis panel -Hep B and C negative, Hep A pending (5) Anxiety: Plan: Appreciate psychiatry consultation Continue treatment for alcohol and benzodiazepine withdrawal as above Continue Lexapro 20 mg daily Hydroxyzine as needed for anxiety Mirtazapine increased to 15 mg at bedtime as needed (6) PTSD (post-traumatic stress disorder): Plan: Gets TMS (transcranial magnetic stimulation) for this at a clinic in [place] (7) Depression: Plan: As above Appreciate psychiatry consultation-no need for involuntary commitment -She does not need a one-on-one sitter at this time, not at risk for suicide (8) Elevated blood pressure reading without diagnosis of hypertension: Plan: Treating with Librium and Ativan as above Can give IV hydralazine for SBP greater than 180 (9) Hypokalemia: Plan: Potassium low today, likely from poor p.o. intake Replace with 40 mill equivalents p.o. potassium chloride Follow BMP in the morning Plan: DVT prophylaxis with SCDs Disposition-continued stay on telemetry unit, still having significant signs and symptoms of alcohol and benzodiazepine withdrawal Admission and Anticipated Discharge Date Admission Date: May 31, 2021 Subjective Patient feeling nauseated, not eating much. Still with pretty significant tremors and anxiety. She is requiring less Ativan today and reports she is trying to use hydroxyzine in between doses of Ativan to spread them out more. She is concerned here about her liver enzymes going up and the fatty liver and states that she is committed to continuing to abstain from alcohol to get her liver back to normal. Telemetry reviewed and with normal sinus rhythm and sinus tachycardia Review of Systems Review of Systems: All systems reviewed & are unremarkable except as noted in HPI & below Physical Exam Constitutional: WD/WN, vitals as above Eyes: + anicteric sclerae Neck: trachea midline, no thyromegaly Respiratory: normal respiratory effort, lungs clear to auscultation Cardiovascular: RRR, no murmur, no edema Chest (Breasts): Chest: normal inspection of chest Gastrointestinal (Abdomen): normal bowel sounds, soft, nontender, no hepatosplenomegaly Musculoskeletal: Extremities: extremities normal to inspection; no cyanosis and no clubbing Skin: no rashes, warm and dry Neurologic: moves all extremities and awake; no focal motor deficits Speech / Cognition: normal speech Motor/Sensory: + tremor (All over) Psychiatric: Orientation: alert, oriented x 3 and cooperative Affect: + anxious affect Lymphatic: no lymphedema Results & Data Results & Data ([facility]) Vital Signs (Past 12 Hours) Vital Signs Pulse Resp BP Pulse Ox 06/02/21 19:21 88 20 175/126 H 98 06/02/21 12:15 82 16 116/76 97 Laboratory Results 06/02/21 06/02/21 Range/Units 05:31 05:31 WBC 4.39 L (4.8-10.8) K/uL RBC 3.81 L (4.2-5.4) M/uL Hgb 12.3 (12.0-16.0) g/dL Hct 36.6 L (37-47) % MCV 96.1 (80-100) fL MCH 32.3 (25-34) pg MCHC 33.6 (32-36) g/dL RDW Std Deviation 50.7 H (36.4-46.3) fL RDW Coeff of Sotero 14.4 (11.5-14.5) % Plt Count 152 (130-400) K/uL MPV 9.2 (7.4-10.4) fL Immature Gran % (Auto) 0.2 % Neut % (Auto) 46.1 % Lymph % (Auto) 41.5 % [place] % (Auto) 8.4 % Eos % (Auto) 3.6 % Baso % (Auto) 0.2 % Neut # (Auto) 2.02 (1.4-6.5) K/uL Lymph # (Auto) 1.82 (1.2-3.4) K/uL [place] # (Auto) 0.37 (0.11-0.59) K/uL Eos # (Auto) 0.16 (0-0.5) K/uL Baso # (Auto) 0.01 (0-0.2) K/uL Immature Gran # (Auto) 0.01 (0.00-0.02) K/uL Sodium 143 (136-145) mmol/L Potassium 3.2 L (3.5-5.1) mmol/L Chloride 111 H (98-107) mmol/L Carbon Dioxide 26 (21-32) mmol/L Anion Gap 6.0 (3-11) BUN 4 L (7-18) mg/dl Creatinine 0.51 L (0.6-1.2) mg/dl Est Cr Clr Drug Dosing 171.2 ml/min Est GFR ( Amer) 143.4 ml/min Est GFR (Non-Af Amer) 123.7 ml/min BUN/Creatinine Ratio 8.2 L (10-20) Glucose 90 (70-99) mg/dl Calcium 8.8 (8.5-10.1) mg/dl Magnesium 2.3 (1.8-2.4) mg/dl Total Bilirubin 0.5 (0.2-1) mg/dl AST 119 H (15-37) U/L ALT 114 H (12-78) Alkaline Phosphatase 66 (45-117) U/L Total Protein 6.2 L (6.4-8.2) gm/dl Albumin 3.2 L (3.4-5.0) gm/dl Globulin 3.0 (2.5-4.0) gm/dl Albumin/Globulin Ratio 1.1 (0.9-2) PG Care Time/CCT Total # of Minutes Spent Total Time Spent with Patient: Total time spent is greater than 50% in coordination of care (as documented) at patient's floor/unit and/or counseling patient: Coding Level of Care Code 45236 Subseq Hosp Care Lvl 3 Diagnoses Alcohol withdrawal F10.239 Polysubstance abuse F19.10 Benzodiazepine withdrawal F13.239 Abnormal LFTs R79.89 Anxiety F41.9 PTSD (post-traumatic stress disorder) F43.10 Depression F32.89 Depression Type: other depression Elevated blood pressure reading without diagnosis of hypertension R03.0 Hypokalemia E87.6 (1) Depression Depression Type: other depression Qualified Code(s): F32.89 - Other specified depressive episodes
[2021-06-02] MEDS ORDERED: POTASSIUM CHLORIDE CRTAB 20 MEQ TABCR PO STA (20:02)
[2021-06-02] MEDS: MIRTAZAPINE TAB 15 MG TAB PO PRN (21:06)
[2021-06-03] MEDS: LORazepam 1 MG/2 ML VIAL IV PRN ×4 (00:59→20:43)
[2021-06-03] MEDS: hydrOXYzine HCl 25 MG TAB PO PRN ×3 (00:59→12:20)
[2021-06-03] MEDS: chlordiazePOXIDE HCl 25 MG CAP PO SCH ×3 (03:58→20:34)
[2021-06-03] MEDS: IBUPROFEN 600 MG TAB PO PRN (04:50)
[2021-06-03 06:17] LABS: Hepatitis A Antibody IgM NON-REACTIVE (NON-REACTIVE); Hepatitis B Core Antibody IgM NON-REACTIVE (NON-REACTIVE)
[2021-06-03 07:51] LABS: Eosinophils # (auto) 0.22 K/uL (0-0.5); Eosinophils % (auto) 4.9 %; Hematocrit (blood only) 35.1 % (37-47); Hemoglobin 11.9 g/dL (12.0-16.0); Immature Granulocytes # (auto) 0.01 K/uL (0.00-0.02); Immature Granulocytes % (auto) 0.2 %; Lymphocytes # (auto) 1.41 K/uL (1.2-3.4); Lymphocytes % (auto) 31.7 %; Mean Corpuscular Hemoglobin 32.6 pg (25-34); Mean Corpuscular Hgb Conc 33.9 g/dL (32-36); Mean Corpuscular Volume 96.2 fL (80-100); Mean Platelet Volume 9.2 fL (7.4-10.4); Monocytes # (auto) 0.37 K/uL (0.11-0.59); Monocytes % (auto) 8.3 %; Neutrophils # (auto) 2.44 K/uL (1.4-6.5); Neutrophils % (auto) 54.9 %; Platelet Count 155 K/uL (130-400); RDW Coefficient of Variation 14.4 % (11.5-14.5); Red Blood Count 3.65 M/uL (4.2-5.4); White Blood Count 4.45 K/uL (4.8-10.8)
[2021-06-03] MEDS: cloNIDine HCL 0.1 MG TAB PO SCH ×2 (08:08→20:38)
[2021-06-03] MEDS: FOLIC ACID 1 MG TAB PO SCH (08:09)
[2021-06-03] MEDS: GABAPENTIN 600 MG TAB PO SCH ×2 (08:09→20:36)
[2021-06-03] MEDS: THIAMINE HCL 100 MG TAB PO SCH (08:09)
[2021-06-03] MEDS: PANTOprazole 40 MG TAB PO SCH ×2 (08:09→20:34)
[2021-06-03] MEDS: ESCITALOPRAM OXALATE 20 MG TAB PO SCH (08:09)
[2021-06-03] MEDS: FAMOTIDINE 20 MG TAB PO SCH ×2 (08:11→20:35)
[2021-06-03] MEDS: CALCIUM CARBONATE 500 MG CHEWABLE TAB PO PRN (08:16)
[2021-06-03 08:24] LABS: Albumin Globulin Ratio 1.5 (0.9-2); Albumin Level 3.7 gm/dl (3.4-5.0); BUN Creatinine Ratio 8.7 (10-20); Bilirubin,Total 0.6 mg/dl (0.2-1.0); Calcium 8.6 mg/dl (8.5-10.1); Creatinine Clr Calc Pharmacy 116.8 ml/min; Est GFR (African American) 129.8 ml/min; Globulin 2.5 gm/dl (2.5-4.0); Magnesium 1.8 mg/dl (1.7-2.4); Potassium 3.5 mmol/L (3.5-5.1); Total Protein 6.2 gm/dl (6.0-8.3)
--- NOTE | 2021-06-03 11:49 | Hospitalist Progress Note ---
Date of Service June 03, 2021 Assessment & Plan (1) Alcohol withdrawal: Plan: Here with signs and symptoms of alcohol withdrawal after binge drinking 12 beers a day for the last 2 weeks and a history of alcohol use disorder and substance use disorder Requiring high doses of IV Ativan initially requiring 20 mg total in the first 24 hours IV ativan prn use is continuing to go down each day, still having tremors, nausea, but no hallucinations, no seizures, and vitals are improving (not hypertensive, not tachycardic) Started Librium taper which is helping -Continue Librium taper and plan to give a few tablets after discharge for prn use -Continue Ativan as needed per AWSS -Continue thiamine and folate -Counseled on cessation and she is committed to this -Discharge back to [facility] in [place] when medically stable-see psychiatry notes for details-arrangements have been made for this -With alcoholic hepatitis most likely as below (2) Polysubstance abuse: Plan: Using benzodiazepines both illicitly and previously on Valium for a long time Also using kratom which has opioid like qualities -Clonidine twice daily, continue gabapentin Ativan and Librium as above Continue on loperamide as needed for diarrhea, dicyclomine as needed for abdominal cramping, hydroxyzine as needed for anxiety (3) Benzodiazepine withdrawal: Plan: As above (4) Abnormal LFTs: Plan: AST and ALT elevated, but now trending downward, bilirubin remains normal With nausea but no abdominal pain Right upper quadrant ultrasound shows hepatomegaly and hepatic steatosis- consistent with alcoholic fatty liver disease Likely alcoholic hepatitis Continue abstinence from alcohol Follow LFTs in the morning Hepatitis panel ABC all negative (5) Anxiety: Plan: Appreciate psychiatry consultation Continue treatment for alcohol and benzodiazepine withdrawal as above Continue Lexapro 20 mg daily Hydroxyzine as needed for anxiety Mirtazapine increased to 15 mg at bedtime as needed (6) PTSD (post-traumatic stress disorder): Plan: Gets TMS (transcranial magnetic stimulation) for this at a clinic in [place] (7) Depression: Plan: As above Appreciate psychiatry consultation-no need for involuntary commitment -She does not need a one-on-one sitter at this time, not at risk for suicide (8) Elevated blood pressure reading without diagnosis of hypertension: Plan: Treating with Librium and Ativan as above Can give IV hydralazine for SBP greater than 180 (9) Hypokalemia: Plan: replaced and resolved Follow BMP in the morning Plan: DVT prophylaxis with SCDs Disposition-continued stay on telemetry unit, still having significant signs and symptoms of alcohol and benzodiazepine withdrawal although is improving, possible discharge tomorrow Admission and Anticipated Discharge Date Admission Date: May 31, 2021 Anticipated date of discharge: 06/04/21 Subjective Pt feeling better, was sleeping but did wake up and say that she was feeling shaky and needed more ativan. She worries about what the plan will be for after discharge as far as what to do if sh ehas withdrawal symptoms. She is not interested so much in local resources for as she has access to Zoom/telehealth with her Psych in [place]. Nausea still present but improved. Is moving her bowels. Tele with NSR, rates 70s-100s Review of Systems Review of Systems: All systems reviewed & are unremarkable except as noted in HPI & below Physical Exam Constitutional: WD/WN, vitals as above Eyes: + anicteric sclerae Neck: trachea midline, no thyromegaly Respiratory: normal respiratory effort, lungs clear to auscultation Cardiovascular: RRR, no murmur, no edema Chest (Breasts): Chest: normal inspection of chest Gastrointestinal (Abdomen): normal bowel sounds, soft, nontender, no hepatosplenomegaly Musculoskeletal: Extremities: extremities normal to inspection; no cyanosis and no clubbing Skin: no rashes, warm and dry Neurologic: moves all extremities and awake; no focal motor deficits Speech / Cognition: normal speech Motor/Sensory: + tremor (mild) Psychiatric: Orientation: alert, oriented x 3 and cooperative Affect: + anxious affect Lymphatic: no lymphedema Results & Data Results & Data ([facility]) Vital Signs (Past 12 Hours) Vital Signs Temp Pulse Pulse Pulse Resp BP BP 06/03/21 11:42 36.7 C 80 20 112/82 06/03/21 06:56 36.3 C L 80 20 123/81 06/03/21 06:07 36.4 C L 92 H 20 144/98 H 06/03/21 04:43 36.7 C 81 20 144/94 H 06/03/21 03:20 96 H 06/03/21 01:00 95 H 22 135/95 Pulse Ox 06/03/21 11:42 98 06/03/21 06:56 98 01/12/22 06:07 98 06/03/21 04:43 98 06/03/21 03:20 06/03/21 01:00 98 Laboratory Results 06/03/21 06/03/21 05/30/21 Range/Units 07:24 07:24 15:33 WBC 4.45 L (4.8-10.8) K/uL RBC 3.65 L (4.2-5.4) M/uL Hgb 11.9 L (12.0-16.0) g/dL Hct 35.1 L (37-47) % MCV 96.2 (80-100) fL MCH 32.6 (25-34) pg MCHC 33.9 (32-36) g/dL RDW Std Deviation 51.0 H (36.4-46.3) fL RDW Coeff of Sotero 14.4 (11.5-14.5) % Plt Count 155 (130-400) K/uL MPV 9.2 (7.4-10.4) fL Immature Gran % (Auto) 0.2 % Neut % (Auto) 54.9 % Lymph % (Auto) 31.7 % [place] % (Auto) 8.3 % Eos % (Auto) 4.9 % Baso % (Auto) 0.0 % Neut # (Auto) 2.44 (1.4-6.5) K/uL Lymph # (Auto) 1.41 (1.2-3.4) K/uL [place] # (Auto) 0.37 (0.11-0.59) K/uL Eos # (Auto) 0.22 (0-0.5) K/uL Baso # (Auto) 0.00 (0-0.2) K/uL Immature Gran # (Auto) 0.01 (0.00-0.02) K/uL Sodium 142 (136-145) mmol/L Potassium 3.5 (3.5-5.1) mmol/L Chloride 110 H (98-107) mmol/L Carbon Dioxide 25 (21-32) mmol/L Anion Gap 7 (3-11) BUN 6 (6-23) mg/dl Creatinine 0.69 (0.6-1.2) mg/dl Est Cr Clr Drug Dosing 116.8 ml/min Est GFR ( Amer) 129.8 ml/min Est GFR (Non-Af Amer) 112.0 ml/min BUN/Creatinine Ratio 8.7 L (10-20) Glucose 96 (70-99) mg/dl Calcium 8.6 (8.5-10.1) mg/dl Magnesium 1.8 (1.7-2.4) mg/dl Total Bilirubin 0.6 (0.2-1.0) mg/dl AST 71 H (13-39) U/L ALT 86 H (7-52) U/L Alkaline Phosphatase 58 (34-104) U/L Total Protein 6.2 (6.0-8.3) gm/dl Albumin 3.7 (3.4-5.0) gm/dl Globulin 2.5 (2.5-4.0) gm/dl Albumin/Globulin Ratio 1.5 (0.9-2) Hepatitis A IgM Ab NON-REACTIVE (NON-REACTIVE) Hep B Core IgM Ab NON-REACTIVE (NON-REACTIVE) PG Care Time/CCT Total # of Minutes Spent Total Time Spent with Patient: Total time spent is greater than 50% in coordination of care (as documented) at patient's floor/unit and/or counseling patient: Coding Level of Care Code 12557 Subseq Hosp Care Lvl 2 Diagnoses Alcohol withdrawal F10.239 Polysubstance abuse F19.10 Benzodiazepine withdrawal F13.239 Abnormal LFTs R79.89 Anxiety F41.9 PTSD (post-traumatic stress disorder) F43.10 Depression F32.89 Depression Type: other depression Elevated blood pressure reading without diagnosis of hypertension R03.0 Hypokalemia E87.6 (1) Depression Depression Type: other depression Qualified Code(s): F32.89 - Other specified depressive episodes
[2021-06-03] MEDS: ONDANSETRON INJ 2 MG/ML 2 ML VIAL IV PRN (12:19)
[2021-06-03] MEDS: MIRTAZAPINE TAB 15 MG TAB PO PRN (21:11)
[2021-06-04] MEDS: hydrOXYzine HCl 25 MG TAB PO PRN ×2 (02:30→17:30)
[2021-06-04] MEDS: chlordiazePOXIDE HCl 25 MG CAP PO SCH ×2 (03:49→17:30)
[2021-06-04] MEDS: LORazepam 2 MG/4 ML VIAL IV PRN (07:41)
[2021-06-04] MEDS: FOLIC ACID 1 MG TAB PO SCH (07:47)
[2021-06-04] MEDS: GABAPENTIN 600 MG TAB PO SCH ×2 (07:47→20:45)
[2021-06-04] MEDS: ESCITALOPRAM OXALATE 20 MG TAB PO SCH (07:47)
[2021-06-04] MEDS: THIAMINE HCL 100 MG TAB PO SCH (07:48)
[2021-06-04] MEDS: PANTOprazole 40 MG TAB PO SCH ×2 (07:48→20:44)
[2021-06-04] MEDS: FAMOTIDINE 20 MG TAB PO SCH ×2 (07:49→20:45)
[2021-06-04] MEDS: cloNIDine HCL 0.1 MG TAB PO SCH ×2 (07:52→20:40)
[2021-06-04 09:18] LABS: Basophils # (auto) 0.01 K/uL (0-0.2); Basophils % (auto) 0.2 %; Eosinophils # (auto) 0.11 K/uL (0-0.5); Eosinophils % (auto) 1.8 %; Hematocrit (blood only) 36.3 % (37-47); Hemoglobin 12.5 g/dL (12.0-16.0); Immature Granulocytes # (auto) 0.01 K/uL (0.00-0.02); Immature Granulocytes % (auto) 0.2 %; Lymphocytes % (auto) 23.3 %; Mean Corpuscular Hemoglobin 32.9 pg (25-34); Mean Corpuscular Hgb Conc 34.4 g/dL (32-36); Mean Corpuscular Volume 95.5 fL (80-100); Mean Platelet Volume 9.4 fL (7.4-10.4); Monocytes # (auto) 0.59 K/uL (0.11-0.59); Monocytes % (auto) 9.8 %; Neutrophils # (auto) 3.88 K/uL (1.4-6.5); Neutrophils % (auto) 64.7 %; Platelet Count 182 K/uL (130-400); RDW Coefficient of Variation 14.4 % (11.5-14.5)
[2021-06-04 10:15] LABS: BUN Creatinine Ratio 12.1 (10-20); Bilirubin Direct 0.1 mg/dl (0-0.2); Bilirubin,Total 0.5 mg/dl (0.2-1.0); Calcium 9.1 mg/dl (8.5-10.1); Creatinine Clr Calc Pharmacy 121.7 ml/min; Est GFR (African American) 131.7 ml/min; Est GFR (Non-African American) 113.6 ml/min; Potassium 3.4 mmol/L (3.5-5.1); Total Protein 6.6 gm/dl (6.0-8.3)
[2021-06-04] MEDS ORDERED: POTASSIUM CHLORIDE CRTAB 20 MEQ TABCR PO STA (11:42)
--- NOTE | 2021-06-04 15:56 | Hospitalist Progress Note ---
Date of Service June 04, 2021 Assessment & Plan (1) Alcohol withdrawal: Plan: Here with signs and symptoms of alcohol withdrawal after binge drinking 12 beers a day for the last 2 weeks and a history of alcohol use disorder and substance use disorder Had been on Valium prescribed daily for many years and then when ran out, was buying diclazepam on the internet and taking the equivalent of Valium 40-60mg daily Requiring high doses of IV Ativan initially requiring 20 mg total in the first 24 hours IV ativan prn use is continuing to go down each day, still having tremors, nausea, but no hallucinations, no seizures, and vitals are improving (not hypertensive, not tachycardic) Started Librium taper which is helping but had some increased symptoms when Libium went down to 10mg dose -Continue Librium but increase back to 25mg po bid -Continue Ativan as needed per AWSS and add po dose 1 mg q8 prn anxiety for spare use which is she doing well with avoiding frequent use -Continue thiamine and folate -Counseled on cessation and she is committed to this -Discharge back to [facility] in [place] when medically stable-see psychiatry notes for details-arrangements have been made for this -With alcoholic hepatitis most likely as below (2) Polysubstance abuse: Plan: Using benzodiazepines both illicitly and previously on Valium for a long time Also using kratom which has opioid like qualities -Clonidine twice daily, continue gabapentin Ativan and Librium as above Continue on loperamide as needed for diarrhea, dicyclomine as needed for abdominal cramping, hydroxyzine as needed for anxiety (3) Benzodiazepine withdrawal: Plan: As above (4) Abnormal LFTs: Plan: AST and ALT elevated, but now trending downward/stable from yesterday, bilirubin remains normal With nausea but no abdominal pain Right upper quadrant ultrasound shows hepatomegaly and hepatic steatosis- consistent with alcoholic fatty liver disease Likely alcoholic hepatitis Continue abstinence from alcohol Follow LFTs in the morning Hepatitis panel ABC all negative (5) Anxiety: Plan: Appreciate psychiatry consultation Continue treatment for alcohol and benzodiazepine withdrawal as above Continue Lexapro 20 mg daily Hydroxyzine as needed for anxiety Mirtazapine increased to 15 mg at bedtime as needed (6) PTSD (post-traumatic stress disorder): Plan: Gets TMS (transcranial magnetic stimulation) for this at a clinic in [place] (7) Depression: Plan: As above Appreciate psychiatry consultation-no need for involuntary commitment -She does not need a one-on-one sitter at this time, not at risk for suicide (8) Elevated blood pressure reading without diagnosis of hypertension: Plan: Treating with Librium and Ativan as above Can give IV hydralazine for SBP greater than 180 (9) Hypokalemia: Plan: replaced again today not much po intake Follow BMP in the morning Plan: DVT prophylaxis with SCDs Disposition-continued stay on telemetry unit, still having significant signs and symptoms of alcohol and benzodiazepine withdrawal although is improving slowly Admission and Anticipated Discharge Date Admission Date: May 31, 2021 Subjective Pt feeling much more anxious today, only received 1 dose IV ativan thus far and was trying to walk around a lot in the halls instead of taking meds. Reports she has walked [id number] steps so far today. She feels since the Librium dose went down today, things are "reaching a peak" of anxiety. Appetite poor unless gets ativan. No hallucinations Tele with NSR and ST to 110s Review of Systems Review of Systems: All systems reviewed & are unremarkable except as noted in HPI & below Physical Exam Constitutional: WD/WN, vitals as above Eyes: + anicteric sclerae Neck: trachea midline, no thyromegaly Respiratory: normal respiratory effort, lungs clear to auscultation Cardiovascular: RRR, no murmur, no edema Chest (Breasts): Chest: normal inspection of chest Gastrointestinal (Abdomen): normal bowel sounds, soft, nontender, no hepatosplenomegaly Musculoskeletal: Extremities: extremities normal to inspection; no cyanosis and no clubbing Skin: no rashes, warm and dry Neurologic: moves all extremities and awake; no focal motor deficits Speech / Cognition: normal speech Motor/Sensory: no tremor Psychiatric: Orientation: alert, oriented x 3 and cooperative Affect: + anxious affect Lymphatic: no lymphedema Results & Data Results & Data ([facility]) Vital Signs (Past 12 Hours) Vital Signs Temp Pulse Pulse Resp BP BP Pulse Ox 06/04/21 15:00 88 06/04/21 09:35 36.7 C 85 16 104/70 98 06/04/21 08:00 100 H 06/04/21 07:34 36.8 C 108 H 22 149/101 H 98 Laboratory Results 06/04/21 06/04/21 06/04/21 Range/Units 09:01 09:01 09:01 WBC 6.00 (4.8-10.8) K/uL RBC 3.80 L (4.2-5.4) M/uL Hgb 12.5 (12.0-16.0) g/dL Hct 36.3 L (37-47) % MCV 95.5 (80-100) fL MCH 32.9 (25-34) pg MCHC 34.4 (32-36) g/dL RDW Std Deviation 50.0 H (36.4-46.3) fL RDW Coeff of Sotero 14.4 (11.5-14.5) % Plt Count 182 (130-400) K/uL MPV 9.4 (7.4-10.4) fL Immature Gran % (Auto) 0.2 % Neut % (Auto) 64.7 % Lymph % (Auto) 23.3 % [place] % (Auto) 9.8 % Eos % (Auto) 1.8 % Baso % (Auto) 0.2 % Neut # (Auto) 3.88 (1.4-6.5) K/uL Lymph # (Auto) 1.40 (1.2-3.4) K/uL [place] # (Auto) 0.59 (0.11-0.59) K/uL Eos # (Auto) 0.11 (0-0.5) K/uL Baso # (Auto) 0.01 (0-0.2) K/uL Immature Gran # (Auto) 0.01 (0.00-0.02) K/uL Sodium 142 (136-145) mmol/L Potassium 3.4 L (3.5-5.1) mmol/L Chloride 108 H (98-107) mmol/L Carbon Dioxide 23 (21-32) mmol/L Anion Gap 11 (3-11) BUN 8 (6-23) mg/dl Creatinine 0.66 (0.6-1.2) mg/dl Est Cr Clr Drug Dosing 121.7 ml/min Est GFR ( Amer) 131.7 ml/min Est GFR (Non-Af Amer) 113.6 ml/min BUN/Creatinine Ratio 12.1 (10-20) Glucose 102 H (70-99) mg/dl Calcium 9.1 (8.5-10.1) mg/dl Total Bilirubin 0.5 (0.2-1.0) mg/dl Direct Bilirubin 0.1 (0-0.2) mg/dl AST 74 H (13-39) U/L ALT 96 H (7-52) U/L Alkaline Phosphatase 58 (34-104) U/L Total Protein 6.6 (6.0-8.3) gm/dl Albumin 4.0 (3.4-5.0) gm/dl TSH 2.099 (0.300-4.500) uIu/ml PG Care Time/CCT Total # of Minutes Spent Total Time Spent with Patient: Total time spent is greater than 50% in coordination of care (as documented) at patient's floor/unit and/or counseling patient: Coding Level of Care Code 93353 Subseq Hosp Care Lvl 2 Diagnoses Alcohol withdrawal F10.239 Polysubstance abuse F19.10 Benzodiazepine withdrawal F13.239 Abnormal LFTs R79.89 Anxiety F41.9 PTSD (post-traumatic stress disorder) F43.10 Depression F32.89 Depression Type: other depression Elevated blood pressure reading without diagnosis of hypertension R03.0 Hypokalemia E87.6 (1) Depression Depression Type: other depression Qualified Code(s): F32.89 - Other specified depressive episodes
[2021-06-04] MEDS: LOPERAMIDE HCL 2 MG CAP PO PRN (16:46)
[2021-06-04] MEDS: LORazepam 1 MG TAB PO PRN (16:46)
[2021-06-04] MEDS: IBUPROFEN 600 MG TAB PO PRN (17:31)
[2021-06-04 18:32] LABS: 7-Aminoclonaz, Confirm NEGATIVE ng/mL (<25); Hydro-Alp Ur, GC/MS NEGATIVE ng/mL (<25); Hydroxyethylflurazepam, Conf NEGATIVE ng/mL (<50); Hydroxymidazolam Ur, GC/MS NEGATIVE ng/mL (<50); Hydroxytriazolam NEGATIVE ng/mL (<50); Lorazepam, Ur GC/MS NEGATIVE ng/mL (<50); Nordiazepam, Confirm NEGATIVE ng/mL (<50); Oxazepam Ur, GC/MS NEGATIVE ng/mL (<50); Temazepam, Confirm NEGATIVE ng/mL (<50)
[2021-06-04] MEDS: LORazepam 1 MG/2 ML VIAL IV PRN (19:04)
[2021-06-04] MEDS: MIRTAZAPINE TAB 15 MG TAB PO PRN (20:39)
[2021-06-05] MEDS: LORazepam 1 MG TAB PO PRN ×3 (02:50→19:53)
[2021-06-05] MEDS: chlordiazePOXIDE HCl 25 MG CAP PO SCH ×2 (06:02→18:04)
[2021-06-05 07:39] LABS: Basophils # (auto) 0.01 K/uL (0-0.2); Basophils % (auto) 0.2 %; Eosinophils # (auto) 0.19 K/uL (0-0.5); Eosinophils % (auto) 3.6 %; Hematocrit (blood only) 38.2 % (37-47); Hemoglobin 12.8 g/dL (12.0-16.0); Lymphocytes # (auto) 1.96 K/uL (1.2-3.4); Lymphocytes % (auto) 37.3 %; Mean Corpuscular Hemoglobin 32.1 pg (25-34); Mean Corpuscular Hgb Conc 33.5 g/dL (32-36); Mean Corpuscular Volume 95.7 fL (80-100); Mean Platelet Volume 9.5 fL (7.4-10.4); Monocytes # (auto) 0.67 K/uL (0.11-0.59); Monocytes % (auto) 12.8 %; Neutrophils # (auto) 2.42 K/uL (1.4-6.5); Neutrophils % (auto) 46.1 %; Platelet Count 170 K/uL (130-400); RDW Coefficient of Variation 14.5 % (11.5-14.5); RDW Standard Deviation 50.9 fL (36.4-46.3); Red Blood Count 3.99 M/uL (4.2-5.4); White Blood Count 5.25 K/uL (4.8-10.8)
[2021-06-05] MEDS: ONDANSETRON INJ 2 MG/ML 2 ML VIAL IV PRN ×2 (07:56→18:04)
[2021-06-05] MEDS: FAMOTIDINE 20 MG TAB PO SCH (08:00)
[2021-06-05] MEDS: GABAPENTIN 600 MG TAB PO SCH ×2 (08:03→19:54)
[2021-06-05] MEDS: FOLIC ACID 1 MG TAB PO SCH (08:03)
[2021-06-05] MEDS: THIAMINE HCL 100 MG TAB PO SCH (08:03)
[2021-06-05] MEDS: PANTOprazole 40 MG TAB PO SCH ×2 (08:03→19:55)
[2021-06-05] MEDS: ESCITALOPRAM OXALATE 20 MG TAB PO SCH (08:03)
[2021-06-05 08:07] LABS: Albumin Globulin Ratio 1.6 (0.9-2); Albumin Level 3.8 gm/dl (3.4-5.0); BUN Creatinine Ratio 11.7 (10-20); Bilirubin,Total 0.4 mg/dl (0.2-1.0); Calcium 8.9 mg/dl (8.5-10.1); Creatinine Clr Calc Pharmacy 133.9 ml/min; Est GFR (African American) 135.9 ml/min; Est GFR (Non-African American) 117.3 ml/min; Globulin 2.4 gm/dl (2.5-4.0); Total Protein 6.2 gm/dl (6.0-8.3)
[2021-06-05] MEDS: cloNIDine HCL 0.1 MG TAB PO SCH (09:59)
[2021-06-05] MEDS: hydrOXYzine HCl 25 MG TAB PO PRN (16:17)
[2021-06-05] MEDS ORDERED: cloNIDine HCL 0.1 MG TAB PO PRN (17:22)
[2021-06-05] MEDS ORDERED: GABAPENTIN 300 MG CAP PO ONE (17:23)
--- NOTE | 2021-06-05 19:20 | Hospitalist Progress Note ---
Date of Service June 05, 2021 Assessment & Plan (1) Alcohol withdrawal: Plan: Here with signs and symptoms of alcohol withdrawal after binge drinking 12 beers a day for the last 2 weeks and a history of alcohol use disorder and substance use disorder Had been on Valium prescribed daily for many years and then when ran out, was buying diclazepam on the internet and taking the equivalent of Valium 40-60mg daily for the last 2 months Requiring high doses of IV Ativan initially requiring 20 mg total in the first 24 hours IV ativan prn use is continuing to go down each day, still having tremors, nausea, but no hallucinations, no seizures, and vitals are improving (not hypertensive, not tachycardic) Started Librium taper which is helping but had some increased symptoms when Libium went down to 10mg dose -Continue Librium at 25mg po bid for now and then gradually taper down -Continue Ativan as needed per AWSS and added a po dose 1 mg q8 prn anxiety for spare use which is she doing well with avoiding frequent use -Continue thiamine and folate -Counseled on cessation and she is committed to this -Discharge back to [facility] in [place] when medically stable-see psychiatry notes for details-arrangements have been made for this -With alcoholic hepatitis most likely as below (2) Polysubstance abuse: Plan: Using significantly high doses of benzodiazepines both illicitly and previously on Valium for a long time Also using kratom which has opioid like qualities -Continue clonidine changed to scheduled at night as needed during the day takes at home rather than scheduled twice daily -Continue gabapentin but increase back to home dosing 3 times daily Ativan and Librium as above Continue on loperamide as needed for diarrhea, dicyclomine as needed for abdominal cramping, hydroxyzine as needed for anxiety (3) Benzodiazepine withdrawal: Plan: As above (4) Abnormal LFTs: Plan: AST and ALT elevated, but now trending downward, bilirubin remains normal With nausea but no abdominal pain Right upper quadrant ultrasound shows hepatomegaly and hepatic steatosis- consistent with alcoholic fatty liver disease Likely alcoholic hepatitis Continue abstinence from alcohol Follow LFTs in 1 week Hepatitis panel ABC all negative (5) Anxiety: Plan: Appreciate psychiatry consultation Continue treatment for alcohol and benzodiazepine withdrawal as above Continue Lexapro 20 mg daily Hydroxyzine as needed for anxiety Mirtazapine increased to 15 mg at bedtime and will make this scheduled (6) PTSD (post-traumatic stress disorder): Plan: Gets TMS (transcranial magnetic stimulation) for this at a clinic in [place] (7) Depression: Plan: As above Appreciate psychiatry consultation-no need for involuntary commitment -She does not need a one-on-one sitter at this time, not at risk for suicide -Plan is for her to enter into her IOP in [place] with her psychiatrist after discharge (8) Elevated blood pressure reading without diagnosis of hypertension: Plan: Treating with Librium and Ativan as above Can give IV hydralazine for SBP greater than 180 Clonidine as needed (9) Hypokalemia: Plan: replaced and resolved Plan: DVT prophylaxis with SCDs Disposition-continued stay on telemetry unit, still having significant signs and symptoms of alcohol and benzodiazepine withdrawal although is improving slowly Admission and Anticipated Discharge Date Admission Date: May 31, 2021 Subjective Patient reports she has been walking for the last 3 hours straight in the halls. She is feeling tired. Still has very poor appetite and not eating much at all, but is drinking plenty of water. She asks that some of her medications be changed-she reports the clonidine she takes scheduled at bedtime and then only as needed during the daytime rather than scheduled. She also reports that in the past, she has used propranolol 20 mg as a as needed for anxiety and would like that ordered. She would also like to go back to her home dose of gabapentin 3 times a day, and it is only ordered twice daily here. She has been taking the mirtazapine at night and I offered to make that scheduled rather than as needed so she did not have to ask for it. Overall improving, but still having significant waves of anxiety shaking, but Ativan use is decreasing. Asks if she is going to be discharged tomorrow. Telemetry with normal sinus rhythm and sinus tachycardia with rates ranging from 70s to 130s. Review of Systems Review of Systems: All systems reviewed & are unremarkable except as noted in HPI & below Physical Exam Constitutional: WD/WN, vitals as above Eyes: + anicteric sclerae Neck: trachea midline, no thyromegaly Respiratory: normal respiratory effort, lungs clear to auscultation Cardiovascular: RRR, no murmur, no edema Chest (Breasts): Chest: normal inspection of chest Gastrointestinal (Abdomen): normal bowel sounds, soft, nontender, no hepatosplenomegaly Musculoskeletal: Extremities: extremities normal to inspection; no cyanosis and no clubbing Skin: no rashes, warm and dry Neurologic: moves all extremities and awake; no focal motor deficits Speech / Cognition: normal speech Motor/Sensory: no tremor Psychiatric: Orientation: alert, oriented x 3 and cooperative Affect: + anxious affect Lymphatic: no lymphedema Results & Data Results & Data ([facility]) Vital Signs (Past 12 Hours) Vital Signs Temp Pulse Pulse Resp BP Pulse Ox 06/05/21 16:28 79 06/05/21 11:05 36.7 C 102 H 20 148/106 H 97 06/05/21 07:28 75 Laboratory Results 06/05/21 06/05/21 Range/Units 07:14 07:14 WBC 5.25 (4.8-10.8) K/uL RBC 3.99 L (4.2-5.4) M/uL Hgb 12.8 (12.0-16.0) g/dL Hct 38.2 (37-47) % MCV 95.7 (80-100) fL MCH 32.1 (25-34) pg MCHC 33.5 (32-36) g/dL RDW Std Deviation 50.9 H (36.4-46.3) fL RDW Coeff of Sotero 14.5 (11.5-14.5) % Plt Count 170 (130-400) K/uL MPV 9.5 (7.4-10.4) fL Immature Gran % (Auto) 0.0 % Neut % (Auto) 46.1 % Lymph % (Auto) 37.3 % [place] % (Auto) 12.8 % Eos % (Auto) 3.6 % Baso % (Auto) 0.2 % Neut # (Auto) 2.42 (1.4-6.5) K/uL Lymph # (Auto) 1.96 (1.2-3.4) K/uL [place] # (Auto) 0.67 H (0.11-0.59) K/uL Eos # (Auto) 0.19 (0-0.5) K/uL Baso # (Auto) 0.01 (0-0.2) K/uL Immature Gran # (Auto) 0.00 (0.00-0.02) K/uL Sodium 141 (136-145) mmol/L Potassium 4.0 (3.5-5.1) mmol/L Chloride 110 H (98-107) mmol/L Carbon Dioxide 24 (21-32) mmol/L Anion Gap 7 (3-11) BUN 7 (6-23) mg/dl Creatinine 0.60 (0.6-1.2) mg/dl Est Cr Clr Drug Dosing 133.9 ml/min Est GFR ( Amer) 135.9 ml/min Est GFR (Non-Af Amer) 117.3 ml/min BUN/Creatinine Ratio 11.7 (10-20) Glucose 91 (70-99) mg/dl Calcium 8.9 (8.5-10.1) mg/dl Magnesium 2.0 (1.7-2.4) mg/dl Total Bilirubin 0.4 (0.2-1.0) mg/dl AST 65 H (13-39) U/L ALT 96 H (7-52) U/L Alkaline Phosphatase 53 (34-104) U/L Total Protein 6.2 (6.0-8.3) gm/dl Albumin 3.8 (3.4-5.0) gm/dl Globulin 2.4 L (2.5-4.0) gm/dl Albumin/Globulin Ratio 1.6 (0.9-2) PG Care Time/CCT Total # of Minutes Spent Total Time Spent with Patient: Total time spent is greater than 50% in coordination of care (as documented) at patient's floor/unit and/or counseling patient: Coding Level of Care Code 97342 Subseq Hosp Care Lvl 3 Diagnoses Alcohol withdrawal F10.239 Polysubstance abuse F19.10 Benzodiazepine withdrawal F13.239 Abnormal LFTs R79.89 Anxiety F41.9 PTSD (post-traumatic stress disorder) F43.10 Depression F32.89 Depression Type: other depression Elevated blood pressure reading without diagnosis of hypertension R03.0 Hypokalemia E87.6 (1) Depression Depression Type: other depression Qualified Code(s): F32.89 - Other specified depressive episodes
[2021-06-05] MEDS: IBUPROFEN 600 MG TAB PO PRN (20:47)
[2021-06-05] MEDS ORDERED: cloNIDine HCL 0.1 MG TAB PO SCH (21:00)
[2021-06-05] MEDS ORDERED: MIRTAZAPINE TAB 15 MG TAB PO SCH (21:00)
[2021-06-06] MEDS ORDERED: PROPRANOLOL HCL 20 MG TAB PO PRN (00:41)
[2021-06-06] MEDS: hydrOXYzine HCl 25 MG TAB PO PRN (00:59)
[2021-06-06] MEDS: chlordiazePOXIDE HCl 25 MG CAP PO SCH (06:19)
[2021-06-06] MEDS: IBUPROFEN 600 MG TAB PO PRN (07:39)
[2021-06-06] MEDS: ONDANSETRON INJ 2 MG/ML 2 ML VIAL IV PRN (07:43)
[2021-06-06] MEDS: ESCITALOPRAM OXALATE 20 MG TAB PO SCH (08:35)
[2021-06-06] MEDS: PANTOprazole 40 MG TAB PO SCH (08:35)
[2021-06-06] MEDS: GABAPENTIN 600 MG TAB PO SCH ×2 (08:35→14:03)
[2021-06-06] MEDS: FOLIC ACID 1 MG TAB PO SCH (08:35)
[2021-06-06] MEDS: THIAMINE HCL 100 MG TAB PO SCH (08:35)
[2021-06-06] MEDS: LORazepam 1 MG TAB PO PRN (08:39)
[2021-06-06 10:28] LABS: Albumin Globulin Ratio 1.7 (0.9-2); Albumin Level 3.8 gm/dl (3.4-5.0); BUN Creatinine Ratio 11.5 (10-20); Bilirubin,Total 0.4 mg/dl (0.2-1.0); Calcium 8.7 mg/dl (8.5-10.1); Creatinine Clr Calc Pharmacy 136.7 ml/min; Est GFR (African American) 135.2 ml/min; Est GFR (Non-African American) 116.6 ml/min; Globulin 2.2 gm/dl (2.5-4.0); Magnesium 1.8 mg/dl (1.7-2.4); Potassium 3.8 mmol/L (3.5-5.1)
--- NOTE | 2021-06-06 11:50 | Discharge Summary ---
Date of Service June 06, 2021 Principal Diagnosis Alcohol and benzodiazepine abuse & withdrawal Discharge Exam Constitutional WD/WN, vitals as above Eyes EOM intact bilaterally; no conjunctival abnormality ENMT external ear and nose normal, oropharynx normal Neck trachea midline, no thyromegaly normal visual inspection Respiratory normal respiratory effort, lungs clear to auscultation no respiratory distress Cardiovascular RRR, no murmur, no edema Gastrointestinal (Abdomen) Inspection/Auscultation: abdomen normal to inspection; abdomen not distended Musculoskeletal no cyanosis or clubbing, extremities motor strength 5/5 Skin no rashes, warm and dry Neurologic moves all extremities and awake Psychiatric Orientation: alert, oriented to person and cooperative Discharge Data Allergies Allergy/AdvReac Type Severity Reaction Status Date / Time latex Allergy Intermediate ERRYTHEMA Verified 06/01/21 09:15 trimethoprim Allergy Mild Unknown Verified 06/01/21 09:15 banana Allergy Unknown unkn Verified 06/01/21 09:15 cantaloupe Allergy Unknown Unknown Verified 06/02/21 12:17 cucumber Allergy Unknown unknown Verified 06/01/21 09:15 eggplant Allergy Unknown Unknown Verified 06/02/21 12:19 kiwi Allergy Unknown hives Verified 06/01/21 09:15 lentils Allergy Unknown UNKNOWN Verified 06/01/21 09:15 melon Allergy Unknown Unknown Verified 06/02/21 12:17 peas Allergy Unknown Unknown Verified 06/02/21 12:19 Sulfa (Sulfonamide Allergy Unknown Unknown Verified 06/01/21 09:15 Antibiotics) sulfamethoxazole Allergy Unknown Unknown Verified 06/01/21 09:15 tuna oil Allergy Unknown UNKNOWN Verified 06/01/21 09:15 Consultations 05/30/21 23:52 ED Decision to Admit Stat 05/31/21 01:24 Consult Psychiatry Routine Ordered Studies 06/02/21 13:30 liver Urgent Hospital Course (1) Alcohol withdrawal: Here with signs and symptoms of alcohol withdrawal after binge drinking 12 beers a day for the last 2 weeks and a history of alcohol use disorder and substance use disorder. - Had been on Valium prescribed daily for many years and then when ran out, was buying diclazepam on the internet and taking the equivalent of Valium 40-60mg daily for the last 2 months. Required high doses of IV Ativan initially requiring 20 mg total in the first 24 hours. By discharge, not needing any Ativan. Discharged on 4 more days of Librium 25 mg PO daily. Her will control this medication to prevent abuse. Confirmed with him. He will pick it up from the pharmacy to ensure it is not in her hands without supervision. (2) Benzodiazepine withdrawal: As above (3) Anxiety: Severe, ongoing anxiety for many years. I worry about polypharmacy for her because of how much she seems to rely on and desire medication. The following regimen was discussed with the patient and seems satisfactory to her while minimizing overlapping medications. 1) Escitalopram 20 mg PO daily ( reports many partial bottles of this, so I think she was rarely/inconsistently taking this.) 2) Gabapentin 600 mg PO TID (lower dose than what reports on a prior bottle, but now TID which may help psychologically to take it TID) 3) Clonidine 0.2 mg PO HS (Patient reports this is the only thing that truly helps her with sleep.) 4) Propranolol 20 mg PO daily PRN for severe panic attacks (Patient reports good use of this with "major" panic attacks and told me she only takes it 2-3 times/wk.) 5) Hydroxyzine 25 mg PO BID PRN for anxiety (Told patient not to mix/"stack" this with other medications, ie clonidine or propranolol.) Discussed all this with patient and . They will get a pill box at [facility], and patient expressly agreed to letting her take a more active role with her medications to ensure she is getting them appropriately. Finally, has 4 days of Librium (as above) that will rock picker and managed to avoid abuse. Declined to give patient any other benzodiazepine and encouraged her to avoid their use after her Librium taper is done. Total Time Total Time Spent Total Time Spent (In Minutes): 60 Discharge Plan Discharge Items Patient Disposition: Home - Self-Care Reason For Visit: POLYSUBSTANCE ABUSE Discharge Diagnosis: Alcohol and benzodiazepine usage Activity: Resume your previous activity Non-emergency contact: Primary Care Provider and Psychiatrist Call non-emergency contact if: you have any medication questions and your symptoms worsen Follow-up/Referrals: PCP,NO [Primary Care Provider] - Diet: Regular Addtl Attending Provider Instructions: Ms. Holly, You were admitted to the hospital for alcohol and benzodiazepine overuse/abuse. Both of these substances can lead to addiction and withdrawal symptoms when they are stopped. We saw evidence of this while you were here, and have been able to taper these medications down safely to avoid scary things like seizure. You have reported to us that you have a good support system at home and intend to rock picker with your mental health team in [place] on Tuesday. Here is how we are working to get you safely and successfully home: 1) Librium 25 mg daily for the next 4 days. This will help reduce and "smooth out" any last withdrawal symptoms from alcohol and diazepam. Take this in the morning. Do NOT take extras for additional anxiety. 2) Increased your gabapentin 600 mg to three times a day which will help reduce withdrawal and reduce overall anxiety. 3) Refilled your clonidine at bedtime and your propranolol for panic attacks. 4) Prescribed Vistaril (hydroxyzine) 25 mg twice a day NEEDED for anxiety. Please do not "stack" this medication with the clonidine or the propranolol. Give yourself at least 2 hours in between either of those medications and a dose of Vistaril. Pending Studies at Discharge: No Stand-Alone Forms: My [facility], Smoking Cessation Medications and DC Order Prescriptions: New chlordiazepoxide HCl 25 mg capsule 25 mg PO DAILY Qty: 4 RF: 0 gabapentin 600 mg tablet 600 mg PO TID Qty: 90 RF: 0 Continued cholecalciferol (vitamin D3) 5,000 unit tablet 1 PO .Take 1 tablet daily RF: 0 epinephrine 0.3 mg/0.3 mL auto-injector subcut RF: 0 Mirena 20 mcg/24 hours (5 yrs) 52 mg intrauterine device IU RF: 0 vitamin B complex [B Complex-Vitamin B12] tablet 1 tab PO DAILY RF: 0 omega-3 fatty acids PO RF: 0 escitalopram oxalate 20 mg tablet 20 mg PO DAILY RF: 0 ketamine 10 mg/mL Solution 0 mg IM DIRECTED RF: 0 propranolol 20 mg tablet 20 mg PO DAILY PRN (Reason: Panic Attack(S)) Qty: 30 RF: 0 clonidine HCl 0.2 mg Tablet 0.2 mg PO HS Qty: 30 RF: 0 Changed hydroxyzine HCl 25 mg tablet 25 mg PO BID PRN (Reason: Anxiety) Qty: 30 RF: 0 Discontinued Vyvanse 30 mg capsule PO .TAKE 1 CAPSULE DAILY RF: 0 diazepam 5 mg tablet PO .Patient is on a tape RF: 0 escitalopram oxalate [Lexapro] 10 mg Tablet 30 mg PO DAILY RF: 0 gabapentin 300 mg Tablet Extended Release 24 Hr 300 mg PO BID RF: 0 bismuth subsalicylate [Pepto-Bismol] 262 mg/15 mL Suspension 524 mg PO DIRECTED PRN (Reason: upset stomach) RF: 0 bupropion HCl 100 mg Tablet Sustained-Release 12 Hr 100 mg PO DAILY RF: 0 propranolol 40 mg Tablet 40 mg PO BID RF: 0 gabapentin 600 mg tablet 600 mg PO BID RF: 0 clonidine HCl 0.2 mg tablet 0.2 mg PO BID RF: 0 ondansetron [Zofran ODT] 4 mg Tablet,Disintegrating 4 mg PO BID PRN (Reason: NAUSEA/VOMITING) RF: 0 escitalopram oxalate 20 mg tablet 2 mg PO DAILY RF: 0 baclofen 10 mg tablet 10 mg PO TID PRN (Reason: MUSCLE SPASMS) RF: 0 mirtazapine 7.5 mg tablet 7.5 mg PO HS PRN (Reason: Sleep) RF: 0 Diclazepam 0 mg PO DIRECTED RF: 0 Discharge Orders: Discharge Order (Routine); Ordered 06/06/21 Ordered By: Ramiro Lanier Admission Data Admit Date/Time: 05/31/21 00:18 Attending Provider: Ramiro Lanier Admit Provider: Ryan Alonso Primary Care Provider: PCP,NO Other Providers: Sherry Malagon ; Cara Villa ; Pepper Tam ; Roman Tenorio ; Ramiro Lanier Coding Level of Care Code D/C DAY MANAGEMENT >30 MINS Diagnoses Alcohol withdrawal F10.239 Benzodiazepine withdrawal F13.239 Anxiety F41.9
== END 2021-06-06 14:30 | disposition home or self-care (01) | DRG 897 ==
LOC: ED 15:12 → MERGE 05-31 00:18 → SUATTDRO 05-31 00:18 → EDINP 05-31 00:18 → 2N 06-03 02:28

== ENCOUNTER 2021-06-13 22:26 | Inpatient (IN) ==
[2021-06-13] MEDS ORDERED: SODIUM CHLORIDE 0.9% 1000ML 1,000 ML IV SCH (22:45)
--- NOTE | 2021-06-13 22:47 | Emergency Department Note ---
History of Present Illness General Chief complaint: Mental Health Evaluation Stated complaint: Illness Time Seen by Provider: 06/13/21 22:27 History of Present Illness This 35-year-old with a history of alcoholism presents to the ER complaining of alcohol intoxication requesting detox Location: Generalized Quality: Intoxicated Severity: Moderate Duration: Past week Timing: Started after she was discharged from the hospital Context: Patient wanted to go back to rehab and came in Modifying factors: better with alcohol; worse with not drinking Patient states has been drinking alcohol since being discharged from the hospital. Patient states she took extra benzos today. Patient initially told me she was not suicidal or homicidal but then told the nurse that she had thoughts of hurting herself. Patient denies taking any other medicines besides the benzos and the alcohol today. Patient denies chest pain, dyspnea, fevers, flulike illness. Home Medications Medication Instructions Recorded Confirmed Type cholecalciferol (vitamin D3) 125 1 PO .Take 1 tablet daily tab 02/15/19 02/15/19 History mcg (5,000 unit) tablet epinephrine 0.3 mg/0.3 mL SUBCUT ea 02/15/19 02/15/19 History injection, auto-injector escitalopram oxalate 20 mg tablet 20 mg PO DAILY tab 02/15/19 02/15/19 History levonorgestrel 20 mcg/24 hours (7 IU ea 02/15/19 02/15/19 History yrs) 52 mg intrauterine device omega-3 fatty acids [Fish Oil PO 02/15/19 02/15/19 History Concentrate] vitamin B complex (B 1 tab PO DAILY 02/15/19 02/15/19 History Complex-Vitamin B12) ketamine 10 mg/mL injection 0 mg IM DIRECTED 05/30/21 05/30/21 History solution chlordiazepoxide HCl 25 mg capsule 25 mg PO DAILY #4 cap 06/06/21 Rx clonidine HCl 0.2 mg tablet 0.2 mg PO HS #30 tab 06/06/21 Rx gabapentin 600 mg tablet 600 mg PO TID #90 tab 06/06/21 Rx hydroxyzine HCl 25 mg tablet 25 mg PO BID PRN #30 tab 06/06/21 Rx propranolol 20 mg tablet 20 mg PO DAILY PRN #30 tab 06/06/21 Rx Allergies Allergy/AdvReac Type Severity Reaction Status Date / Time latex Allergy Intermediate ERRYTHEMA Verified 06/01/21 09:15 trimethoprim Allergy Mild Unknown Verified 06/01/21 09:15 banana Allergy Unknown unkn Verified 06/01/21 09:15 cantaloupe Allergy Unknown Unknown Verified 06/02/21 12:17 cucumber Allergy Unknown unknown Verified 06/01/21 09:15 eggplant Allergy Unknown Unknown Verified 06/02/21 12:19 kiwi Allergy Unknown hives Verified 06/01/21 09:15 lentils Allergy Unknown UNKNOWN Verified 06/01/21 09:15 melon Allergy Unknown Unknown Verified 06/02/21 12:17 peas Allergy Unknown Unknown Verified 06/02/21 12:19 Sulfa (Sulfonamide Allergy Unknown Unknown Verified 06/01/21 09:15 Antibiotics) sulfamethoxazole Allergy Unknown Unknown Verified 06/01/21 09:15 tuna oil Allergy Unknown UNKNOWN Verified 06/01/21 09:15 Past Med/Surg History Medical History (Updated 06/14/21 @ 05:47 by Gosia Humphreys PA-C) Alcohol use disorder, moderate, dependence Allergic rhinitis Anxiety Anxiety Depression Depression, unspecified Headache History of food allergy Insomnia Moderate benzodiazepine use disorder Post traumatic stress disorder (PTSD) PTSD (post-traumatic stress disorder) Surgical History (Updated 06/13/21 @ 22:43 by Gosia Humphreys PA-C) No pertinent past surgical history Family History Other No pertinent family history Social History Smoking Status: Never smoker Preferred Language: Sami Communication Ability: Effective Mobile Marketing Specialist Required: No Beliefs That Will Affect Care: None Current Living Situation: Family Feels Safe at Home: Hesitant to Answer Assistive Devices: Glasses Review of Systems A total of 10 systems reviewed and were otherwise negative Physical Exam Vital Signs Vital Signs - 24 hr 06/13/21 22:20 06/13/21 22:34 06/13/21 23:04 Temperature 36.4 C L Temperature Source Oral Pulse Rate 115 H Pulse Rate [Right Finger] 123 H Pulse Rhythm [Right Finger] Regular Respiratory Rate 20 22 Blood Pressure 178/118 H Blood Pressure [Right Arm] Blood Pressure Mean 138 Blood Pressure Mean [Right Arm] Pulse Oximetry 98 98 Oxygen Delivery Method Room Air Room Air Sepsis Recent Fever Within 48 Hours No Sepsis New/Unexplained Change in Mental Status No Sepsis Action Taken by Nursing No Action Required 06/14/21 02:23 06/14/21 05:21 Temperature Temperature Source Pulse Rate Pulse Rate [Right Finger] 119 H 130 H Pulse Rhythm [Right Finger] Respiratory Rate 16 22 Blood Pressure Blood Pressure [Right Arm] 139/98 159/101 H Blood Pressure Mean Blood Pressure Mean [Right Arm] 111 120 Pulse Oximetry 95 97 Oxygen Delivery Method Room Air Room Air Sepsis Recent Fever Within 48 Hours Sepsis New/Unexplained Change in Mental Status Sepsis Action Taken by Nursing VITALS: Vitals are noted on the nurse's note and reviewed by myself. Vital signs stable. GENERAL: White female intoxicated appearing in no acute distress, nondiaphoreti c, well-developed well-nourished. SKIN: The skin was without rashes, erythema, edema, or bruising. There is no tenting of the skin. Capillary reflex less than 2 seconds. HEAD: Normocephalic atraumatic. EARS: External auditory canals clear EYES: Pupils equal round and reactive to light and accommodation. Conjunctivae with mild injection, sclerae without icterus. Extraocular movements intact. NOSE: Patent, turbinates without inflammation or discharge. MOUTH: Mucous membranes moist. Pharynx without erythema or exudate. Uvula midline. Airway patent. Tongue does not deviate. NECK: Supple without nuchal rigidity. No lymphadenopathy. No thyromegaly. Cervical spine is nontender. No JVD. HEART: Regular rate and rhythm LUNGS: Clear to auscultation bilaterally without wheezes, rales or rhonchi. No retractions or accessory muscle use. ABDOMEN: Positive bowel sounds x 4. Normal tympanic percussion. Soft, nontender, without masses or organomegaly. Julien sign negative. No guarding or rebound tenderness. No CVA tenderness MUSCULOSKELETAL: No muscle atrophy, erythema, or edema noted. NEURO: Patient was alert and oriented to person place and time. Normal sensation to light and sharp touch. No focal neurological deficits. Course Administered Medications Sodium Chloride (Nss 1000ml) 1,000 mls @ 999 mls/hr IV .Q1H1M ONE Stop: 06/14/21 06:53 Last Admin: 06/14/21 06:01 Dose: 999 mls/hr Documented by: [id number] Discontinued Medications Calcium Carbonate (Calcium Carbonate 500 Mg Chewable Tab) 500 mg PO ONCE ONE Stop: 06/14/21 04:00 Last Admin: 06/14/21 04:05 Dose: 500 mg Documented by: [id number] Chlordiazepoxide HCl (Chlordiazepoxide Hcl 25 Mg Cap) 50 mg PO NOW ONE Stop: 06/14/21 02:51 Last Admin: 06/14/21 02:57 Dose: 50 mg Documented by: [id number] Sodium Chloride (Nss 1000ml) 1,000 mls @ 999 mls/hr IV .Q1H1M BRIANDA Stop: 06/13/21 23:45 Last Infusion: 06/14/21 00:42 Dose: 0 mls/hr Documented by: [id number] Admin: 06/13/21 23:05 Dose: 999 mls/hr Documented by: [id number] Lorazepam (Ativan) 1 mg in 2 mls @ 2 mls/min IV NOW STA Stop: 06/14/21 01:34 Last Admin: 06/14/21 01:38 Dose: 2 mls/min Documented by: [id number] Lorazepam (Ativan) 1 mg in 2 mls @ 2 mls/min IV NOW STA Stop: 06/14/21 02:51 Last Admin: 06/14/21 02:57 Dose: 2 mls/min Documented by: [id number] Lorazepam (Ativan) 1 mg in 2 mls @ 2 mls/min IV NOW STA Stop: 06/14/21 05:27 Last Admin: 06/14/21 05:32 Dose: 2 mls/min Documented by: [id number] Olanzapine (Olanzapine 10 Mg/2.1 Ml Sdv) 5 mg IM NOW STA Stop: 06/14/21 01:44 Last Admin: 06/14/21 01:49 Dose: Not Given Documented by: [id number] Ondansetron HCl (Ondansetron 4 Mg Od Tab) 4 mg PO NOW STA Stop: 06/14/21 03:19 Last Admin: 06/14/21 03:23 Dose: 4 mg Documented by: [id number] Medical Decision Making Medical Records Attestation: I reviewed the patient's medical records. Home Medications Current Medication List: was personally reviewed by me Laboratory Data Attestation: I reviewed the patient's lab results. Result diagrams: 06/13/21 22:40 06/13/21 22:40 Lab Results 06/13/21 06/13/21 06/13/21 Range/Units 22:40 22:40 22:40 WBC 12.91 H (4.8-10.8) K/uL RBC 5.51 H (4.2-5.4) M/uL Hgb 18.4 H (12.0-16.0) g/dL Hct 52.5 H (37-47) % MCV 95.3 (80-100) fL MCH 33.4 (25-34) pg MCHC 35.0 (32-36) g/dL RDW Std Deviation 49.7 H (36.4-46.3) fL RDW Coeff of Sotero 14.2 (11.5-14.5) % Plt Count 502 H (130-400) K/uL MPV 9.4 (7.4-10.4) fL Immature Gran % (Auto) 0.2 % Neut % (Auto) 81.0 % Lymph % (Auto) 14.6 % Frontier % (Auto) 4.0 % Eos % (Auto) 0.1 % Baso % (Auto) 0.1 % Neut # (Auto) 10.46 H (1.4-6.5) K/uL Lymph # (Auto) 1.89 (1.2-3.4) K/uL Frontier # (Auto) 0.52 (0.11-0.59) K/uL Eos # (Auto) 0.01 (0-0.5) K/uL Baso # (Auto) 0.01 (0-0.2) K/uL Immature Gran # (Auto) 0.02 (0.00-0.02) K/uL Sodium 142 (136-145) mmol/L Potassium 3.5 (3.5-5.1) mmol/L Chloride 102 (98-107) mmol/L Carbon Dioxide 19 L (21-32) mmol/L Anion Gap 21 H (3-11) BUN 6 (6-23) mg/dl Creatinine 0.58 L (0.6-1.2) mg/dl Est Cr Clr Drug Dosing 135.0 ml/min Est GFR ( Amer) 137.4 ml/min Est GFR (Non-Af Amer) 118.6 ml/min BUN/Creatinine Ratio 10.3 (10-20) Glucose 103 H (70-99(Fasting)) mg/dl Calcium 9.5 (8.5-10.1) mg/dl Magnesium 2.1 (1.7-2.4) mg/dl Total Bilirubin 0.3 (0.2-1.0) mg/dl AST 34 (13-39) U/L ALT 91 H (7-52) U/L Alkaline Phosphatase 73 (34-104) U/L Total Creatine Kinase 63 (26-192) U/L Total Protein 9.0 H (6.0-8.3) gm/dl Albumin 5.2 H (3.4-5.0) gm/dl Globulin 3.8 (2.5-4.0) gm/dl Albumin/Globulin Ratio 1.4 (0.9-2) TSH (0.300-4.500) uIu/ml HCG, Qual Negative (Negative) Urine Color Urine Appearance (Clear) Urine pH (4.5-7.5) Ur Specific Pollok (1.000-1.030) Urine Protein (Negative) Urine Glucose (UA) (Negative) Urine Ketones (Negative) Urine Blood (Negative) Urine Nitrite (Negative) Urine Bilirubin (Negative) Urine Urobilinogen (Negative) Ur Leukocyte Esterase (Negative) Urine WBC (Auto) (0-5) /hpf Urine RBC (Auto) (0-4) /hpf U Hyaline Cast (Auto) (0-5) /lpf U Epithel Cells (Auto) (0-5) /lpf Urine Bacteria (Auto) (Negative) Salicylates (3.0-30) mg/dl Urine Opiates Screen (Neg) Ur Methadone, Qual (Neg) Acetaminophen (10-30) ug/ml Urine Barbiturates (Neg) Ur Phencyclidine (PCP) (Neg) U Amphetamin/Meth Scrn (Neg) MDMA (Ecstasy) Screen (Neg) U Benzodiazepines Scrn (Neg) Ur Cocaine Metabolite (Neg) U Marijuana (THC) Screen (Neg) Ethyl Alcohol mg/dL (<10.0) mg/dl 06/13/21 06/13/21 06/13/21 Range/Units 22:40 22:48 22:50 WBC (4.8-10.8) K/uL RBC (4.2-5.4) M/uL Hgb (12.0-16.0) g/dL Hct (37-47) % MCV (80-100) fL MCH (25-34) pg MCHC (32-36) g/dL RDW Std Deviation (36.4-46.3) fL RDW Coeff of Sotero (11.5-14.5) % Plt Count (130-400) K/uL MPV (7.4-10.4) fL Immature Gran % (Auto) % Neut % (Auto) % Lymph % (Auto) % Frontier % (Auto) % Eos % (Auto) % Baso % (Auto) % Neut # (Auto) (1.4-6.5) K/uL Lymph # (Auto) (1.2-3.4) K/uL Frontier # (Auto) (0.11-0.59) K/uL Eos # (Auto) (0-0.5) K/uL Baso # (Auto) (0-0.2) K/uL Immature Gran # (Auto) (0.00-0.02) K/uL Sodium (136-145) mmol/L Potassium (3.5-5.1) mmol/L Chloride (98-107) mmol/L Carbon Dioxide (21-32) mmol/L Anion Gap (3-11) BUN (6-23) mg/dl Creatinine (0.6-1.2) mg/dl Est Cr Clr Drug Dosing ml/min Est GFR ( Amer) ml/min Est GFR (Non-Af Amer) ml/min BUN/Creatinine Ratio (10-20) Glucose (70-99(Fasting)) mg/dl Calcium (8.5-10.1) mg/dl Magnesium (1.7-2.4) mg/dl Total Bilirubin (0.2-1.0) mg/dl AST (13-39) U/L ALT (7-52) U/L Alkaline Phosphatase (34-104) U/L Total Creatine Kinase (26-192) U/L Total Protein (6.0-8.3) gm/dl Albumin (3.4-5.0) gm/dl Globulin (2.5-4.0) gm/dl Albumin/Globulin Ratio (0.9-2) TSH 2.326 (0.300-4.500) uIu/ml HCG, Qual (Negative) Urine Color Urine Appearance (Clear) Urine pH (4.5-7.5) Ur Specific Poll[place] (1.000-1.030) Urine Protein (Negative) Urine Glucose (UA) (Negative) Urine Ketones (Negative) Urine Blood (Negative) Urine Nitrite (Negative) Urine Bilirubin (Negative) Urine Urobilinogen (Negative) Ur Leukocyte Esterase (Negative) Urine WBC (Auto) (0-5) /hpf Urine RBC (Auto) (0-4) /hpf U Hyaline Cast (Auto) (0-5) /lpf U Epithel Cells (Auto) (0-5) /lpf Urine Bacteria (Auto) (Negative) Salicylates < 3.0 L (3.0-30) mg/dl Urine Opiates Screen (Neg) Ur Methadone, Qual (Neg) Acetaminophen < 3 L (10-30) ug/ml Urine Barbiturates (Neg) Ur Phencyclidine (PCP) (Neg) U Amphetamin/Meth Scrn (Neg) MDMA (Ecstasy) Screen (Neg) U Benzodiazepines Scrn (Neg) Ur Cocaine Metabolite (Neg) U Marijuana (THC) Screen (Neg) Ethyl Alcohol mg/dL 205.8 H (<10.0) mg/dl 06/13/21 06/13/21 Range/Units 23:15 23:15 WBC (4.8-10.8) K/uL RBC (4.2-5.4) M/uL Hgb (12.0-16.0) g/dL Hct (37-47) % MCV (80-100) fL MCH (25-34) pg MCHC (32-36) g/dL RDW Std Deviation (36.4-46.3) fL RDW Coeff of Sotero (11.5-14.5) % Plt Count (130-400) K/uL MPV (7.4-10.4) fL Immature Gran % (Auto) % Neut % (Auto) % Lymph % (Auto) % Frontier % (Auto) % Eos % (Auto) % Baso % (Auto) % Neut # (Auto) (1.4-6.5) K/uL Lymph # (Auto) (1.2-3.4) K/uL Frontier # (Auto) (0.11-0.59) K/uL Eos # (Auto) (0-0.5) K/uL Baso # (Auto) (0-0.2) K/uL Immature Gran # (Auto) (0.00-0.02) K/uL Sodium (136-145) mmol/L Potassium (3.5-5.1) mmol/L Chloride (98-107) mmol/L Carbon Dioxide (21-32) mmol/L Anion Gap (3-11) BUN (6-23) mg/dl Creatinine (0.6-1.2) mg/dl Est Cr Clr Drug Dosing ml/min Est GFR ( Amer) ml/min Est GFR (Non-Af Amer) ml/min BUN/Creatinine Ratio (10-20) Glucose (70-99(Fasting)) mg/dl Calcium (8.5-10.1) mg/dl Magnesium (1.7-2.4) mg/dl Total Bilirubin (0.2-1.0) mg/dl AST (13-39) U/L ALT (7-52) U/L Alkaline Phosphatase (34-104) U/L Total Creatine Kinase (26-192) U/L Total Protein (6.0-8.3) gm/dl Albumin (3.4-5.0) gm/dl Globulin (2.5-4.0) gm/dl Albumin/Globulin Ratio (0.9-2) TSH (0.300-4.500) uIu/ml HCG, Qual (Negative) Urine Color Yellow Urine Appearance Clear (Clear) Urine pH 5.5 (4.5-7.5) Ur Specific Pollok 1.010 (1.000-1.030) Urine Protein 2+ H (Negative) Urine Glucose (UA) Negative (Negative) Urine Ketones 1+ H (Negative) Urine Blood Trace H (Negative) Urine Nitrite Negative (Negative) Urine Bilirubin Negative (Negative) Urine Urobilinogen Negative (Negative) Ur Leukocyte Esterase Negative (Negative) Urine WBC (Auto) 1-5 (0-5) /hpf Urine RBC (Auto) 0-4 (0-4) /hpf U Hyaline Cast (Auto) 5-10 H (0-5) /lpf U Epithel Cells (Auto) >30 H (0-5) /lpf Urine Bacteria (Auto) Negative (Negative) Salicylates (3.0-30) mg/dl Urine Opiates Screen Neg (Neg) Ur Methadone, Qual Neg (Neg) Acetaminophen (10-30) ug/ml Urine Barbiturates Neg (Neg) Ur Phencyclidine (PCP) Neg (Neg) U Amphetamin/Meth Scrn Neg (Neg) MDMA (Ecstasy) Screen Neg (Neg) U Benzodiazepines Scrn Pos H (Neg) Ur Cocaine Metabolite Neg (Neg) U Marijuana (THC) Screen Neg (Neg) Ethyl Alcohol mg/dL (<10.0) mg/dl Imaging Data Attestation: I personally reviewed and interpreted this imaging study as follows: MDM Narrative Prior records/ancillary studies reviewed. Triage Nursing notes reviewed. Additional history obtained from EMS. The patient's history was concerning for altered mental status and probable overdose. Differential diagnosis: Etiologies such as toxicologic, infection, hypoglycemia, electrolyte abnormalit ies, cardiac sources, intracerebral event, neurologic, as well as others were entertained. Physical examination: The patient had normal sensorium. No trauma noted. ER treatment provided: IV NSS 1 L bolus Ativan, Librium An order was placed for continuous cardiac monitoring. The monitor shows a rate of 60-1 50 with a sinus rhythm. Suicide precautions implemented On reassessment the patient was stable and improving. Diagnostic interpretation by me: The electrocardiogram was negative for pathologic change. There was no QRS widening or interval prolongation. Normal sinus, normal intervals, no acute ST- T wave changes, rate of 117. Impression sinus tachycardia interpreted by myself EKG: EKG ordered for overdose I think arrhythmia is unlikely. EKG shows normal sinus rhythm with no interval abnormalities such as QT prolongation or WPW. There are no findings to suggest Brugada syndrome. Cardiac monitoring in the emergency department reveals no tachycardic or bradycardic dysrhythmia. Hypertrophic cardiomyopathy was considered but there are no clear historical elements pointing toward this. EKG is not suggestive. The QRS voltage is not extremely large and there are no sugge stive Q waves. The labs revealed mild leukocytosis, glucose 103 Negative Tylenol, negative salicylate Alcohol 205, positive benzos on drug screen Consultation: A consultation was placed with hospitalist. The case was discussed and diagnostics were reviewed. The patient was evaluated for possible admission. This appears to be consistent with alcoholism who tried to overdose because of suicidal ideations. Suicide precautions were implemented. Patient required numerous rounds of Ativan. Medicine was consulted. They will evaluate for possible admission for alcohol withdrawal and suicidal ideations. By the evaluation outlined above emergent etiologies such as infection, hypoglycemia, electrolyte abnormalities, cardiac sources, intracerebral event, neurologic,as well as others were deemed relatively unlikely. The pt informed about the findings as listed above. All questions were answered and pleased with the treatment. The chart was completed utilizing [employer] Speech voice recognition software. Grammatical errors, random word insertions, pronoun errors, and incomplete sentences are an occassional consequence of this system due to software limitations, ambient noise, and hardware issues. Any formal questions or concerns about the content, text, or information contained within the body of this dictation should be directly addressed to the physician financial assistant for clarification. Impression & Plan Alcohol intoxication, Suicidal ideation, Polysubstance abuse, Alcohol withdrawal Discharge Plan Visit Data Chief Complaint: Mental Health Evaluation Stated Complaint: Illness ED Provider: David Santos ED Midlevel Provider: Gosia Humphreys Discharge Problem: Alcohol intoxication, Suicidal ideation, Polysubstance abuse, Alcohol withdrawal Patient Disposition: Being Evaluated by Hospitalist Condition: Fair Forms Stand Alone Forms: [facility], [facility], Suicide Prevention Resources Prescriptions Prescriptions: No Action cholecalciferol (vitamin D3) 5,000 unit tablet 1 PO .Take 1 tablet daily RF: 0 epinephrine 0.3 mg/0.3 mL auto-injector subcut RF: 0 levonorgestrel 20 mcg/24 hours (5 yrs) 52 mg intrauterine device IU RF: 0 vitamin B complex [B Complex-Vitamin B12] tablet 1 tab PO DAILY RF: 0 omega-3 fatty acids PO RF: 0 escitalopram oxalate 20 mg tablet 20 mg PO DAILY RF: 0 ketamine 10 mg/mL Solution 0 mg IM DIRECTED RF: 0 hydroxyzine HCl 25 mg tablet 25 mg PO BID PRN (Reason: Anxiety) Qty: 30 RF: 0 chlordiazepoxide HCl 25 mg capsule 25 mg PO DAILY Qty: 4 RF: 0 gabapentin 600 mg tablet 600 mg PO TID Qty: 90 RF: 0 propranolol 20 mg tablet 20 mg PO DAILY PRN (Reason: Panic Attack(S)) Qty: 30 RF: 0 clonidine HCl 0.2 mg Tablet 0.2 mg PO HS Qty: 30 RF: 0 Referrals Referrals: PCP,NO [Physician] -
[2021-06-13 22:51] LABS: Basophils # (auto) 0.01 K/uL (0-0.2); Basophils % (auto) 0.1 %; Eosinophils # (auto) 0.01 K/uL (0-0.5); Eosinophils % (auto) 0.1 %; Hematocrit (blood only) 52.5 % (37-47); Hemoglobin 18.4 g/dL (12.0-16.0); Immature Granulocytes # (auto) 0.02 K/uL (0.00-0.02); Immature Granulocytes % (auto) 0.2 %; Lymphocytes # (auto) 1.89 K/uL (1.2-3.4); Lymphocytes % (auto) 14.6 %; Mean Corpuscular Hemoglobin 33.4 pg (25-34); Mean Corpuscular Volume 95.3 fL (80-100); Mean Platelet Volume 9.4 fL (7.4-10.4); Monocytes # (auto) 0.52 K/uL (0.11-0.59); Neutrophils # (auto) 10.46 K/uL (1.4-6.5); Platelet Count 502 K/uL (130-400); RDW Coefficient of Variation 14.2 % (11.5-14.5); RDW Standard Deviation 49.7 fL (36.4-46.3); Red Blood Count 5.51 M/uL (4.2-5.4); White Blood Count 12.91 K/uL (4.8-10.8)
[2021-06-13 23:10] LABS: Albumin Globulin Ratio 1.4 (0.9-2); Albumin Level 5.2 gm/dl (3.4-5.0); BUN Creatinine Ratio 10.3 (10-20); Bilirubin,Total 0.3 mg/dl (0.2-1.0); Calcium 9.5 mg/dl (8.5-10.1); Est GFR (African American) 137.4 ml/min; Est GFR (Non-African American) 118.6 ml/min; Globulin 3.8 gm/dl (2.5-4.0); Potassium 3.5 mmol/L (3.5-5.1)
[2021-06-13 23:23] LABS: Magnesium 2.1 mg/dl (1.7-2.4)
[2021-06-13 23:25] LABS: Pregnancy Test, Serum Negative (Negative)
[2021-06-13 23:32] LABS: Acetaminophen < 3 ug/ml (10-30); Salicylate < 3.0 mg/dl (3.0-30)
[2021-06-13 23:41] LABS: Appearance Urine Clear (Clear); Bacteria Urine Automated Negative (Negative); Bilirubin Urine Negative (Negative); Blood Urine Trace (Negative); Color Urine Yellow; Epithelial Cell Urine Auto >30 /lpf (0-5); Glucose Urine UA Negative (Negative); Ketones Urine 1+ (Negative); Leukocyte Esterase Urine Negative (Negative); Nitrite Urine Negative (Negative); Protein Urine 2+ (Negative); RBC Urine Automated 0-4 /hpf (0-4); Urobilinogen Urine Negative (Negative); pH Urine 5.5 (4.5-7.5)
[2021-06-14 00:23] LABS: Amphetamines+Metham, Urine Neg (Neg); Barbiturates, Urine Neg (Neg); Benzodiazepine, Urine Pos (Neg); Cocaine, Urine Neg (Neg); MDMA (Ecstacy), Urine Neg (Neg); Methadone, Urine Neg (Neg); Opiate, Urine Neg (Neg); Phencyclidine, Urine Neg (Neg)
[2021-06-14] MEDS ORDERED: LORazepam 1 MG/2 ML VIAL IV STA ×4 (01:33→08:50)
[2021-06-14] MEDS ORDERED: OLANZapine 10 MG/2.1 ML SDV IM STA (01:43)
[2021-06-14] MEDS ORDERED: chlordiazePOXIDE HCl 25 MG CAP PO ONE (02:50)
[2021-06-14] MEDS ORDERED: ONDANSETRON 4 MG OD TAB PO STA (03:18)
[2021-06-14] MEDS ORDERED: CALCIUM CARBONATE 500 MG CHEWABLE TAB PO ONE (03:59)
[2021-06-14] MEDS ORDERED: SODIUM CHLORIDE 0.9% 1000ML 1,000 ML IV ONE (05:53)
--- NOTE | 2021-06-14 06:43 | History & Physical Report ---
Date of Service June 14, 2021 Assessment & Plan (1) Suicidal ideation: Plan: Suicidal ideation/PTSD/anxiety with depression-5 Will order one-to-one observation Continue gabapentin and mirtazapine Consult psychiatry (2) Polysubstance abuse: Plan: Polysubstance abuse/alcohol withdrawal/benzodiazepine withdrawal/alcohol intoxication- Admit to monitored bed AWSS protocol with IV lorazepam Chlordiazepoxide 25 mg p.o. every morning Continue clonidine, but increased from 0.2 at bedtime to 0.2 twice daily Continue gabapentin and mirtazapine Thiamine 100 mg p.o. every morning Folic acid 1 mg p.o. every morning LR at 100 mils per hour (3) Alcohol withdrawal: Plan: See above (4) Benzodiazepine withdrawal: Plan: See above (5) Alcohol intoxication: Plan: Alcohol level 205.8 upon admission (6) PTSD (post-traumatic stress disorder): Plan: See above (7) Anxiety: Plan: See above (8) Severe depression: Plan: See above History of Present Illness Chief Complaint: The patient reports that she became very anxious again, attributes this to having run out of her chlordiazepoxide about 5 to 6 days ago, and is concerned again regarding her alcohol use and withdrawal Primary Care Provider: Macy Villar MD The patient is a 35-year-old female with past medical history including polysubstance abuse, alcohol withdrawal, benzodiazepine withdrawal, abnormal LFTs, alcohol dependence, depression with anxiety, PTSD and polypharmacy. She presents as noted above. Most recent hospitalization was from 05/31-06/06/2021 for similar symptoms. Allergies Allergy/AdvReac Type Severity Reaction Status Date / Time latex Allergy Intermediate ERRYTHEMA Verified 06/01/21 09:15 trimethoprim Allergy Mild Unknown Verified 06/01/21 09:15 banana Allergy Unknown unkn Verified 06/01/21 09:15 cantaloupe Allergy Unknown Unknown Verified 06/02/21 12:17 cucumber Allergy Unknown unknown Verified 06/01/21 09:15 eggplant Allergy Unknown Unknown Verified 06/02/21 12:19 kiwi Allergy Unknown hives Verified 06/01/21 09:15 lentils Allergy Unknown UNKNOWN Verified 06/01/21 09:15 melon Allergy Unknown Unknown Verified 06/02/21 12:17 peas Allergy Unknown Unknown Verified 06/02/21 12:19 Sulfa (Sulfonamide Allergy Unknown Unknown Verified 06/01/21 09:15 Antibiotics) sulfamethoxazole Allergy Unknown Unknown Verified 06/01/21 09:15 tuna oil Allergy Unknown UNKNOWN Verified 06/01/21 09:15 Home Medications Medication Instructions Recorded Confirmed Type cholecalciferol (vitamin D3) 125 1 PO .Take 1 tablet daily tab 02/15/19 02/15/19 History mcg (5,000 unit) tablet epinephrine 0.3 mg/0.3 mL SUBCUT ea 02/15/19 02/15/19 History injection, auto-injector escitalopram oxalate 20 mg tablet 20 mg PO DAILY tab 02/15/19 06/14/21 History levonorgestrel 20 mcg/24 hours (7 IU ea 02/15/19 02/15/19 History yrs) 52 mg intrauterine device chlordiazepoxide HCl 25 mg capsule 25 mg PO DAILY #4 cap 06/06/21 Rx clonidine HCl 0.2 mg tablet 0.2 mg PO HS #30 tab 06/06/21 06/14/21 Rx gabapentin 600 mg tablet 600 mg PO TID #90 tab 06/06/21 06/14/21 Rx hydroxyzine HCl 25 mg tablet 25 mg PO BID PRN #30 tab 06/06/21 06/14/21 Rx propranolol 20 mg tablet 20 mg PO DAILY PRN #30 tab 06/06/21 06/14/21 Rx Past Med/Surg History Medical History (Updated 06/14/21 @ 05:47 by Gosia Humphreys PA-C) Alcohol use disorder, moderate, dependence Allergic rhinitis Anxiety Anxiety Depression Depression, unspecified Headache History of food allergy Insomnia Moderate benzodiazepine use disorder Post traumatic stress disorder (PTSD) PTSD (post-traumatic stress disorder) Surgical History (Updated 06/13/21 @ 22:43 by Gosia Humphresy PA-C) No pertinent past surgical history Family History Other No pertinent family history Social History Smoking Status: Never smoker Preferred Language: German Communication Ability: Effective Rn Research Required: No Beliefs That Will Affect Care: None Current Living Situation: Family Feels Safe at Home: Hesitant to Answer Assistive Devices: Glasses Review of Systems Review of Systems: The patient denies chest pain, palpitations, shortness of breath, dyspnea on exertion, cough, lower extremity swelling, sore throat, fevers, chills, blood in urine or stool, dysuria, urinary frequency or urgency, lightheadedness, dizziness, headache, memory loss, loss of consciousness, rash, abnormal bruising or bleeding, imbalance, focal or generalized weakness, numbness or tingling in arms or legs, generalized arthralgias or myalgias, back or neck pain, or night sweats. The review of systems is otherwise negative other than for that already noted above, and at least 10 systems have been reviewed. Physical Exam Physical Exam: The patient is awake, alert and oriented 3, well developed and well nourished, normocephalic and atraumatic, lying in bed and in no acute distress. HEENT--PERRL, EOMI, mucous membranes and oropharynx dry. Neck--supple. No JVD. No bruits. Thyroid normal, trachea midline, no adenopathy. Heart--normal S1 and S2. No murmurs, rubs or gallops. Lungs--clear bilaterally, no respiratory distress, no accessory muscle use. Abdomen--normal bowel sounds and soft. Nontender. Nondistended Extremities--no cyanosis or clubbing. No edema. Dermatologic--normal skin turgor, normal color, no abnormal lymph nodes, no rash. Neurologic--cranial nerves II through XII grossly intact. Rheumatologic--normal range of motion. Psychiatric--depressed. Results & Data Results & Data ([facility]) Vital Signs (Past 12 Hours) Vital Signs Temp Pulse Pulse Resp BP BP Pulse Ox 06/14/21 05:21 130 H 22 159/101 H 97 06/14/21 02:23 119 H 16 139/98 95 06/13/21 23:04 123 H 22 06/13/21 22:34 98 06/13/21 22:20 36.4 C L 115 H 20 178/118 H 98 Laboratory Results Laboratory Results WBC 12.91 K/uL (4.8-10.8) H 06/13/21 22:40 RBC 5.51 M/uL (4.2-5.4) H 06/13/21 22:40 Hgb 18.4 g/dL (12.0-16.0) H 06/13/21 22:40 Hct 52.5 % (37-47) H 06/13/21 22:40 MCV 95.3 fL (80-100) 06/13/21 22:40 MCH 33.4 pg (25-34) 06/13/21 22:40 MCHC 35.0 g/dL (32-36) 06/13/21 22:40 RDW Std Deviation 49.7 fL (36.4-46.3) H 06/13/21:40 RDW Coeff of Sotero 14.2 % (11.5-14.5) 06/13/21:40 Plt Count 502 K/uL (130-400) H 06/13/21:40 MPV 9.4 fL (7.4-10.4) 06/13/21:40 Immature Gran % (Auto) 0.2 % 06/13/21:40 Neut % (Auto) 81.0 % 06/13/21:40 Lymph % (Auto) 14.6 % 06/13/21:40 Frontier % (Auto) 4.0 % 06/13/21:40 Eos % (Auto) 0.1 % 06/13/21:40 Baso % (Auto) 0.1 % 06/13/21:40 Neut # (Auto) 10.46 K/uL (1.4-6.5) H 06/13/21 22:40 Lymph # (Auto) 1.89 K/uL (1.2-3.4) 06/13/21 22:40 Frontier # (Auto) 0.52 K/uL (0.11-0.59) 06/13/21:40 Eos # (Auto) 0.01 K/uL (0-0.5) 06/13/21:40 Baso # (Auto) 0.01 K/uL (0-0.2) 06/13/21:40 Immature Gran # (Auto) 0.02 K/uL (0.00-0.02) 06/13/21 22:40 Sodium 142 mmol/L (136-145) 06/13/21 22:40 Potassium 3.5 mmol/L (3.5-5.1) 06/13/21:40 Chloride 102 mmol/L (98-107) 01/22/22 22:40 Carbon Dioxide 19 mmol/L (21-32) L 06/13/21 22:40 Anion Gap 21 (3-11) H 06/13/21 22:40 BUN 6 mg/dl (6-23) 06/13/21 22:40 Creatinine 0.58 mg/dl (0.6-1.2) L 06/13/21 22:40 Est Cr Clr Drug Dosing 135.0 ml/min 06/13/21 22:40 Est GFR ( Amer) 137.4 ml/min 06/13/21 22:40 Est GFR (Non-Af Amer) 118.6 ml/min 06/13/21 22:40 BUN/Creatinine Ratio 10.3 (10-20) 06/13/21 22:40 Glucose 103 mg/dl (70-99(Fasting)) H 06/13/21 22:40 Calcium 9.5 mg/dl (8.5-10.1) 06/13/21 22:40 Magnesium 2.1 mg/dl (1.7-2.4) 06/13/21 22:40 Total Bilirubin 0.3 mg/dl (0.2-1.0) 06/13/21 22:40 AST 34 U/L (13-39) 06/13/21 22:40 ALT 91 U/L (7-52) H 06/13/21 22:40 Alkaline Phosphatase 73 U/L (34-104) 06/13/21 22:40 Total Creatine Kinase 63 U/L (26-192) 06/13/21 22:40 Total Protein 9.0 gm/dl (6.0-8.3) H 06/13/21 22:40 Albumin 5.2 gm/dl (3.4-5.0) H 06/13/21 22:40 Globulin 3.8 gm/dl (2.5-4.0) 06/13/21 22:40 Albumin/Globulin Ratio 1.4 (0.9-2) 06/13/21 22:40 TSH 2.326 uIu/ml (0.300-4.500) 06/13/21 22:40 HCG, Qual Negative (Negative) 06/13/21 22:40 Urine Color Yellow 06/13/21 23:15 Urine Appearance Clear (Clear) 06/13/21 23:15 Urine pH 5.5 (4.5-7.5) 06/13/21 23:15 Ur Specific [place] 1.010 (1.000-1.030) 06/13/21 23:15 Urine Protein 2+ (Negative) H 06/13/21 23:15 Urine Glucose (UA) Negative (Negative) 06/13/21 23:15 Urine Ketones 1+ (Negative) H 06/13/21 23:15 Urine Blood Trace (Negative) H 06/13/21 23:15 Urine Nitrite Negative (Negative) 06/13/21 23:15 Urine Bilirubin Negative (Negative) 06/13/21 23:15 Urine Urobilinogen Negative (Negative) 06/13/21 23:15 Ur Leukocyte Esterase Negative (Negative) 06/13/21 23:15 Urine WBC (Auto) 1-5 /hpf (0-5) 06/13/21 23:15 Urine RBC (Auto) 0-4 /hpf (0-4) 06/13/21 23:15 U Hyaline Cast (Auto) 5-10 /lpf (0-5) H 06/13/21 23:15 U Epithel Cells (Auto) >30 /lpf (0-5) H 06/13/21 23:15 Urine Bacteria (Auto) Negative (Negative) 06/13/21 23:15 Salicylates < 3.0 mg/dl (3.0-30) L 06/13/21 22:50 Urine Opiates Screen Neg (Neg) 06/13/21 23:15 Ur Methadone, Qual Neg (Neg) 06/13/21 23:15 Acetaminophen < 3 ug/ml (10-30) L 06/13/21 22:50 Urine Barbiturates Neg (Neg) 06/13/21 23:15 Ur Phencyclidine (PCP) Neg (Neg) 06/13/21 23:15 U Amphetamin/Meth Scrn Neg (Neg) 06/13/21 23:15 MDMA (Ecstasy) Screen Neg (Neg) 06/13/21 23:15 U Benzodiazepines Scrn Pos (Neg) H 06/13/21 23:15 Ur Cocaine Metabolite Neg (Neg) 06/13/21 23:15 U Marijuana (THC) Screen Neg (Neg) 06/13/21 23:15 Ethyl Alcohol mg/dL 205.8 mg/dl (<10.0) H 06/13/21 22:48 Code Status & VTE Plan Code Status Full code VTE Prophylaxis Plan VTE Prophylaxis will be ordered: Yes PG Care Time/CCT Total # of Minutes Spent Total Time Spent with Patient: Total time spent is greater than 50% in coordination of care (as documented) at patient's floor/unit and/or counseling patient: Coding Level of Care Code 33758 Initial Inpt Care Lvl 3 Diagnoses Suicidal ideation R45.851 Alcohol intoxication F10.929 Alcohol withdrawal F10.239 Benzodiazepine withdrawal F13.239 Polysubstance abuse F19.10 PTSD (post-traumatic stress disorder) F43.10 Anxiety F41.9 Severe depression F32.2
[2021-06-14] MEDS ORDERED: CALCIUM CARBONATE 500 MG CHEWABLE TAB PO PRN (06:48)
--- NOTE | 2021-06-14 07:37 | Electrocardiogram Report ---
Test Reason : Blood Pressure : / mmHG Vent. Rate : 117 BPM Atrial Rate : 117 BPM P-R Int : 120 ms QRS Dur : 084 ms QT Int : 364 ms P-R-T Axes : 067 046 037 degrees QTc Int : 507 ms Sinus tachycardia Possible Left atrial enlargement Abnormal ECG When compared with ECG of 01-MAR-2017 02:41, No significant change was found Confirmed by Johnny Akers ([id number]) on 06/14/2021 7:37:36 AM Referred By: REFERRED SELF Confirmed By:Colten Akers
[2021-06-14] MEDS ORDERED: LORazepam 2 MG/4 ML VIAL IV PRN (11:21)
[2021-06-14] MEDS ORDERED: ONDANSETRON INJ 2 MG/ML 2 ML VIAL IV PRN (11:21)
[2021-06-14] MEDS ORDERED: ATIVAN IV ALCOHOL WITHDRAWL IV PRN (11:21)
[2021-06-14] MEDS ORDERED: ONDANSETRON INJ 2 MG/ML 2 ML VIAL ONE (12:45)
[2021-06-14] MEDS: chlordiazePOXIDE HCl 25 MG CAP PO SCH (13:18)
[2021-06-14] MEDS: GABAPENTIN 600 MG TAB PO SCH ×3 (13:19→21:08)
[2021-06-14] MEDS: cloNIDine HCL 0.1 MG TAB PO SCH ×2 (13:19→21:07)
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
[2021-06-14] MEDS: LACTATED RINGER'S 1,000 ML IV SCH ×2 (14:41→21:08)
--- NOTE | 2021-06-14 15:40 | Hospitalist Progress Note ---
Date of Service June 14, 2021 Assessment & Plan (1) Suicidal ideation: Plan: Patient denies any suicidal ideations. Was initially put on one-to-one observation or sitter. Has been discontinued by psychiatry. Appreciate psych recommendations. No indication for inpatient psychiatric admission (2) Alcohol withdrawal: Plan: Continue CIWA protocol Thiamine, folate (3) Benzodiazepine withdrawal: Plan: Patient was recently discharged from this hospital Continue Librium, gabapentin, Lexapro (4) Alcohol intoxication: Plan: Alcohol level 205.8 upon admission Monitor for withdrawals (5) Anxiety: Plan: Continue home medications (6) Severe depression: Plan: See above Admission and Anticipated Discharge Date Admission Date: June 14, 2021 Subjective Patient seen and examined today, still very tremulous Review of Systems Review of Systems: All systems reviewed are negative, apart from the ones contained in the history. Physical Exam Physical Exam: The patient is awake, alert and oriented 3, well developed and well nourished, normocephalic and atraumatic, lying in bed and in no acute distress. HEENT--PERRL, EOMI, mucous membranes and oropharynx mildly dry Neck--supple. No JVD. No bruits. Thyroid normal, trachea midline, no adenopathy. Heart--normal S1 and S2. No murmurs, rubs or gallops. Lungs--clear bilaterally, no respiratory distress, no accessory muscle use. Abdomen--normal bowel sounds and soft. Mild epigastric and left sided abdominal pain Extremities--no cyanosis or clubbing. No edema. Dermatologic--normal skin turgor, normal color, no abnormal lymph nodes, no rash. Neurologic--cranial nerves II through XII grossly intact. Coarse tremors Rheumatologic--normal range of motion. Psychiatric--normal affect. Results & Data Results & Data ([facility]) Vital Signs (Past 12 Hours) Vital Signs Temp Pulse Resp BP Pulse Ox 06/14/21 07:00 98.2 F 130 H 20 148/95 H 99 06/14/21 05:21 130 H 22 159/101 H 97 PG Care Time/CCT Total # of Minutes Spent Total Time Spent with Patient: Total time spent is greater than 50% in coordination of care (as documented) at patient's floor/unit and/or counseling patient: Coding Level of Care Code 98146 Subseq Hosp Care Lvl 2 Diagnoses Suicidal ideation R45.851 Alcohol withdrawal F10.239 Benzodiazepine withdrawal F13.239 Alcohol intoxication F10.929 Anxiety F41.9 Severe depression F32.2 Time Spent (min) 35
[2021-06-14] MEDS: FOLIC ACID 1 MG TAB PO SCH (18:37)
[2021-06-14] MEDS: THIAMINE HCL 100 MG TAB PO SCH (18:37)
[2021-06-14] MEDS: ESCITALOPRAM OXALATE 10 MG TAB PO SCH (18:38)
[2021-06-14] MEDS: LORazepam 3 MG/6 ML VIAL IV PRN (23:52)
[2021-06-15] MEDS: LORazepam 3 MG/6 ML VIAL IV PRN (00:09)
[2021-06-15] MEDS ORDERED: MELATONIN 3 MG TAB PO PRN (00:30)
[2021-06-15 02:41] LABS: Basophils # (auto) 0.02 K/uL (0-0.2); Basophils % (auto) 0.4 %; Eosinophils # (auto) 0.08 K/uL (0-0.5); Eosinophils % (auto) 1.6 %; Hematocrit (blood only) 36.3 % (37-47); Hemoglobin 12.4 g/dL (12.0-16.0); Lymphocytes # (auto) 1.73 K/uL (1.2-3.4); Lymphocytes % (auto) 34.5 %; Mean Corpuscular Hemoglobin 32.4 pg (25-34); Mean Corpuscular Hgb Conc 34.2 g/dL (32-36); Mean Corpuscular Volume 94.8 fL (80-100); Monocytes # (auto) 0.54 K/uL (0.11-0.59); Monocytes % (auto) 10.8 %; Neutrophils # (auto) 2.64 K/uL (1.4-6.5); Neutrophils % (auto) 52.7 %; Platelet Count 313 K/uL (130-400); RDW Coefficient of Variation 13.7 % (11.5-14.5); RDW Standard Deviation 47.7 fL (36.4-46.3); Red Blood Count 3.83 M/uL (4.2-5.4); White Blood Count 5.01 K/uL (4.8-10.8)
[2021-06-15 02:52] LABS: Albumin Globulin Ratio 1.6 (0.9-2); Albumin Level 3.7 gm/dl (3.4-5.0); BUN Creatinine Ratio 10.4 (10-20); Bilirubin,Total 0.5 mg/dl (0.2-1.0); Calcium 8.8 mg/dl (8.5-10.1); Creatinine Clr Calc Pharmacy 121.3 ml/min; Est GFR (African American) 131.1 ml/min; Est GFR (Non-African American) 113.1 ml/min; Globulin 2.3 gm/dl (2.5-4.0); Magnesium 1.6 mg/dl (1.7-2.4); Potassium 2.9 mmol/L (3.5-5.1)
[2021-06-15] MEDS ORDERED: POTASSIUM CHLORIDE CRTAB 20 MEQ TABCR PO STA (07:28)
[2021-06-15] MEDS: LACTATED RINGER'S 1,000 ML IV SCH (07:36)
--- NOTE | 2021-06-15 07:57 | Communication Note ---
Date of Service: June 15, 2021 Patient requested Vistaril for sleep overnight. Checked ecg and machine read as qtc of 686. This is incorrect as it did not properly count the T waves. Repeated ecg in AM and qtc is 493. Holding Zofran. Avoiding adding qtc prolonging agents such as Vistaril.
[2021-06-15] MEDS: LORazepam 1 MG/2 ML VIAL IV PRN ×2 (07:58→12:03)
[2021-06-15] MEDS: chlordiazePOXIDE HCl 25 MG CAP PO SCH (08:54)
[2021-06-15] MEDS ORDERED: cloNIDine HCL 0.1 MG TAB PO SCH (09:00)
[2021-06-15] MEDS ORDERED: MAGNESIUM OXIDE 400 MG TAB PO SCH (09:00)
[2021-06-15] MEDS: ESCITALOPRAM OXALATE 10 MG TAB PO SCH (09:19)
[2021-06-15] MEDS: FOLIC ACID 1 MG TAB PO SCH (09:20)
[2021-06-15] MEDS: cloNIDine HCL 0.1 MG TAB PO SCH (09:20)
[2021-06-15] MEDS: GABAPENTIN 600 MG TAB PO SCH (09:20)
[2021-06-15] MEDS: THIAMINE HCL 100 MG TAB PO SCH (09:20)
--- NOTE | 2021-06-15 09:49 | Electrocardiogram Report ---
Test Reason : Blood Pressure : / mmHG Vent. Rate : 103 BPM Atrial Rate : 103 BPM P-R Int : 104 ms QRS Dur : 084 ms QT Int : 524 ms P-R-T Axes : 052 057 044 degrees QTc Int : 686 ms Sinus tachycardia Nonspecific T wave abnormality Prolonged QT Abnormal ECG When compared with ECG of 13-JUN-2021 22:42, Non-specific change in ST segment in Lateral leads Nonspecific T wave abnormality now evident in Anterior leads Confirmed by Johnny Akers ([id number]) on 06/15/2021 9:48:59 AM Referred By: REFERRED SELF Confirmed By:Colten Akers
--- NOTE | 2021-06-15 11:44 | Discharge Summary ---
Date of Service June 15, 2021 Admission HPI Per Admitting Provider The patient is a 35-year-old female with past medical history including polysubstance abuse, alcohol withdrawal, benzodiazepine withdrawal, abnormal LFTs, alcohol dependence, depression with anxiety, PTSD and polypharmacy. She presents as noted above. Most recent hospitalization was from 05/31-06/06/2021 for similar symptoms. Principal Diagnosis alcohol withdrawal Discharge Exam The patient is awake, alert and oriented 3, well developed and well nourished, normocephalic and atraumatic, lying in bed and in no acute distress. HEENT--PERRL, EOMI, mucous membranes and oropharynx mildly dry Neck--supple. No JVD. No bruits. Thyroid normal, trachea midline, no adenopathy. Heart--normal S1 and S2. No murmurs, rubs or gallops. Lungs--clear bilaterally, no respiratory distress, no accessory muscle use. Abdomen--normal bowel sounds and soft. Mild epigastric and left sided abdominal pain Extremities--no cyanosis or clubbing. No edema. Dermatologic--normal skin turgor, normal color, no abnormal lymph nodes, no rash. Neurologic--cranial nerves II through XII grossly intact. Coarse tremors Rheumatologic--normal range of motion. Psychiatric--normal affect. Discharge Data Allergies Allergy/AdvReac Type Severity Reaction Status Date / Time latex Allergy Intermediate ERRYTHEMA Verified 06/01/21 09:15 trimethoprim Allergy Mild Unknown Verified 06/01/21 09:15 banana Allergy Unknown unkn Verified 06/01/21 09:15 cantaloupe Allergy Unknown Unknown Verified 06/02/21 12:17 cucumber Allergy Unknown unknown Verified 06/01/21 09:15 eggplant Allergy Unknown Unknown Verified 06/02/21 12:19 kiwi Allergy Unknown hives Verified 06/01/21 09:15 lentils Allergy Unknown UNKNOWN Verified 06/01/21 09:15 melon Allergy Unknown Unknown Verified 06/02/21 12:17 peas Allergy Unknown Unknown Verified 06/02/21 12:19 Sulfa (Sulfonamide Allergy Unknown Unknown Verified 06/01/21 09:15 Antibiotics) sulfamethoxazole Allergy Unknown Unknown Verified 06/01/21 09:15 tuna oil Allergy Unknown UNKNOWN Verified 06/01/21 09:15 Consultations 06/14/21 05:51 ED Decision to Admit Stat 06/14/21 11:21 Consult Psychiatry Routine Hospital Course (1) Suicidal ideation: Patient denies any suicidal ideations. Was initially put on one-to-one observation or sitter. Has been discontinued by psychiatry. Appreciate psych recommendations. No indication for inpatient psychiatric admission (2) Alcohol withdrawal: Continue CIWA protocol Thiamine, folate (3) Benzodiazepine withdrawal: Patient was recently discharged from this hospital Continue Librium, gabapentin, Lexapro (4) Alcohol intoxication: Alcohol level 205.8 upon admission Monitor for withdrawals (5) Anxiety: Continue home medications (6) Severe depression: See above Discharge home on a longer Librium taper Total Time Total Time Spent Total Time Spent (In Minutes): 35 Discharge Plan Discharge Items Patient Disposition: Home - Self-Care Reason For Visit: POLYSUBSTANCE ABUSE, SUICIDAL IDEATION, ALCOHOL Discharge Diagnosis: alcohol withdrawal Condition on Discharge: Fair Activity: Resume your previous activity Non-emergency contact: Primary Care Provider and Psychiatrist Call non-emergency contact if: you have any medication questions Follow-up/Referrals: Macy Villar MD [Primary Care Provider] - Diet: Regular Addtl Attending Provider Instructions: please make appointment to follow up with your regular doctors Pending Studies at Discharge: No Stand-Alone Forms: My [employer], Smoking Cessation Medications and DC Order Prescriptions: New chlordiazepoxide HCl 25 mg capsule 25 mg PO QID Qty: 8 RF: 0 chlordiazepoxide HCl 25 mg capsule 25 mg PO TID Qty: 6 RF: 0 chlordiazepoxide HCl 25 mg capsule 25 mg PO BID Qty: 8 RF: 0 Continued cholecalciferol (vitamin D3) 5,000 unit tablet 1 PO .Take 1 tablet daily RF: 0 epinephrine 0.3 mg/0.3 mL auto-injector subcut RF: 0 levonorgestrel 20 mcg/24 hours (5 yrs) 52 mg intrauterine device IU RF: 0 escitalopram oxalate 20 mg tablet 20 mg PO DAILY RF: 0 hydroxyzine HCl 25 mg tablet 25 mg PO BID PRN (Reason: Anxiety) Qty: 30 RF: 0 gabapentin 600 mg tablet 600 mg PO TID Qty: 90 RF: 0 propranolol 20 mg tablet 20 mg PO DAILY PRN (Reason: Panic Attack(S)) Qty: 30 RF: 0 clonidine HCl 0.2 mg Tablet 0.2 mg PO HS Qty: 30 RF: 0 Discontinued chlordiazepoxide HCl 25 mg capsule 25 mg PO DAILY Qty: 4 RF: 0 Discharge Orders: Discharge Order (Routine); Ordered 06/15/21 Ordered By: Lorie Everett Admission Data Admit Date/Time: 06/14/21 06:34 Attending Provider: Lorie Everett Admit Provider: Ryan Alonso Primary Care Provider: Macy Villar Other Providers: Ryan Alonso ; Sherry Malagon ; Cara Villa ; Pepper Tam ; Roman Tenorio Coding Level of Care Code D/C DAY MANAGEMENT >30 MINS Diagnoses Suicidal ideation R45.851 Alcohol withdrawal F10.239 Benzodiazepine withdrawal F13.239 Alcohol intoxication F10.929 Anxiety F41.9 Severe depression F32.2 Time Spent (min) 35
--- NOTE | 2021-06-15 16:09 | Electrocardiogram Report ---
Test Reason : Blood Pressure : / mmHG Vent. Rate : 084 BPM Atrial Rate : 084 BPM P-R Int : 126 ms QRS Dur : 082 ms QT Int : 418 ms P-R-T Axes : 041 058 027 degrees QTc Int : 493 ms Normal sinus rhythm Prolonged QT Abnormal ECG When compared with ECG of 15-JUN-2021 01:03, Nonspecific T wave abnormality has replaced inverted T waves in Inferior leads Nonspecific T wave abnormality, improved in Anterior leads QT has shortened Confirmed by Johnny Akers ([id number]) on 06/15/2021 4:09:42 PM Referred By: REFERRED SELF Confirmed By:Colten Akers
[2021-06-16 18:16] LABS: 7-Aminoclonaz, Confirm NEGATIVE ng/mL (<25); Hydro-Alp Ur, GC/MS NEGATIVE ng/mL (<25); Hydroxyethylflurazepam, Conf NEGATIVE ng/mL (<50); Hydroxymidazolam Ur, GC/MS NEGATIVE ng/mL (<50); Hydroxytriazolam NEGATIVE ng/mL (<50); Lorazepam, Ur GC/MS NEGATIVE ng/mL (<50); Nordiazepam, Confirm NEGATIVE ng/mL (<50); Oxazepam Ur, GC/MS 83 ng/mL (<50); Temazepam, Confirm NEGATIVE ng/mL (<50)
== END 2021-06-15 13:10 | disposition home or self-care (01) | DRG 897 ==
LOC: ED 22:26 → EDINP 06-14 06:34 → SUATTDRO 06-14 06:34 → 2N 06-14 22:00